=== PATIENT | male | born 1945 | race Caucasian/White ===

== ENCOUNTER 2019-08-31 17:44 | Inpatient (IN) | payer MEDICARE, OTHER ==
[~2019-08-31] VITALS: Ht 170.2 cm; Wt 108.9 kg
--- NOTE | 2019-08-31 18:56 | RAD ---
Exam: CT head INDICATION: Weakness for 3 days TECHNIQUE: Sequential axial images through the head were obtained without the administration of IV contrast. Comparisons: None FINDINGS: No focal parenchymal lesion or hemorrhage is identified. There is no midline shift or sulcal effacement. No acute vascular territory infarction is identified. Mazariegos-white distinction is preserved. The ventricular system is within normal limits without compression hydrocephalus. The basal cisterns are well maintained. The visualized portions of the paranasal sinuses and mastoid air cells are well-pneumatized. No acute fractures. There is a perforated septum. IMPRESSION: No acute intracranial abnormality. Exposure: One or more of the following in the visualized dose reduction techniques were utilized for this examination: 1. Automated exposure control 2. Adjustment of the MA and/or KV according to patient size Use of iterative of reconstructive technique Electronically signed by: Radha Herrera MD (08/31/2019 6:54 PM) [facility]
[2019-08-31 19:08] LABS: BASO # 0.1 x10^3/uL (0.0-0.2); BASO % 1 % (0-3); EOS # 0.3 x10^3/uL (0.0-0.7); EOS % 4 % (0-3); HEMATOCRIT 44.3 % (39.0-53.0); HEMOGLOBIN 15.7 g/dL (13.0-17.5); LYMPH # 1.7 x10^3/uL (1.0-4.8); LYMPH % 25 % (24-48); MEAN CORPUSCULAR HEMOGLOBIN 33 pg (25-35); MEAN CORPUSCULAR HGB CONC 35 g/dL (31-37); MEAN CORPUSCULAR VOLUME 93 fL (79-100); MONO % 15 % (0-9); NEUT # 3.8 x10^3/uL (1.8-7.7); NEUT % 56 % (31-73); PLATELET COUNT 202 x10^3/uL (140-400); RED BLOOD COUNT 4.77 x10^6/uL (4.30-5.70); RED CELL DISTRIBUTION WIDTH 13.9 % (11.5-14.5); WHITE BLOOD COUNT 6.8 x10^3/uL (4.0-11.0)
--- NOTE | 2019-08-31 19:10 | RAD ---
Exam: Chest one view INDICATION: Weakness TECHNIQUE: Frontal view of the chest Comparisons: None FINDINGS: The cardiomediastinal silhouette and pulmonary vessels are within normal limits. The lung and pleural spaces are clear. IMPRESSION: No acute cardiopulmonary process. Electronically signed by: Radha Herrera MD (08/31/2019 7:07 PM) [facility]
[2019-08-31 19:12] LABS: PROTHROMBIN TIME PATIENT 12.9 SEC (11.7-14.0)
[2019-08-31 19:19] LABS: D-DIMER 0.8 ug/mlFEU (0.00-0.50)
[2019-08-31 19:29] LABS: CALCIUM 9.3 mg/dL (8.5-10.1); CREATININE 1.2 mg/dL (0.7-1.3); POTASSIUM 4.2 mmol/L (3.5-5.1)
[2019-08-31 19:34] LABS: ALBUMIN 3.4 g/dL (3.4-5.0); ALBUMIN/GLOBULIN RATIO 0.9 (1.0-1.7); MAGNESIUM 1.9 mg/dL (1.8-2.4); TOTAL BILIRUBIN 0.8 mg/dL (0.2-1.0); TOTAL PROTEIN 7.3 g/dL (6.4-8.2)
[2019-08-31 20:08] LABS: BILIRUBIN,URINE NEGATIVE (NEG); CLARITY,URINE CLEAR; COLOR,URINE YELLOW; NITRITE,URINE NEGATIVE (NEG); PH,URINE 5.5; PROTEIN,URINE NEGATIVE (NEG-TRACE)
[2019-08-31 20:17] LABS: BACTERIA,URINE FEW /HPF (0-FEW); HYALINE CASTS, URINE FEW /HPF; SQUAMOUS EPITHELIAL CELL,UR FEW /LPF
[2019-08-31 20:18] LABS: AMPHETAMINE/METHAMPHETAMINE NEG (NEG); BARBITURATES NEG (NEG); BENZODIAZEPINES NEG (NEG); CANNABINOIDS NEG (NEG); COCAINE NEG (NEG); METHADONE NEG (NEG); OPIATES NEG (NEG); PHENCYCLIDINE NEG (NEG)
[2019-08-31] MEDS ORDERED: CONTRAST GIVEN. MC PRN (21:30)
--- NOTE | 2019-08-31 21:50 | PHYS DOC ---
Past Medical History Past Medical History: COPD, Diabetes-Type II, [place] Additional Past Surgical Histo: stents x6, cornea transplant, cataracts, 7th nerve decompression Alcohol Use: None Drug Use: None Adult General Chief Complaint Chief Complaint: WEAKNESS/GENERALIZED HPI HPI Patient is a 74 year old male with history of COPD, diabetes type 2, who presents to the ED today complaining of generalized weakness and increased shortness of breath especially on exertion for 4 days. Patient denies any fever coughing or congestion. He continues to state he is supposed to be on testosterone injections and would like to have his injections in the ED. He states his primary care doctor has been working to get him back on his injection after being off for the last 3 months because of insurance issues but this has not been successful because [facility] pharmacy feels he is not a candidate for testosterone injections. Review of Systems Review of Systems Constitutional: Denies fever or chills [] Eyes: Denies change in visual acuity, redness, or eye pain [] HENT: Denies nasal congestion or sore throat [] Respiratory: Reports increased shortness of breath. Denies cough Cardiovascular: No additional information not addressed in HPI [] GI: Denies abdominal pain, nausea, vomiting, bloody stools or diarrhea [] : Denies dysuria or hematuria [] Musculoskeletal: Denies back pain or joint pain [] Integument: Denies rash or skin lesions [] Neurologic: Reports generalized weakness. Denies headache, focal weakness or sensory changes [] All other systems were reviewed and found to be within normal limits, except as documented in this note. Current Medications Current Medications Current Medications Medications (Trade) Dose Ordered Sig/Ravinder Start Time Stop Time Status Last Admin Dose Admin Info (CONTRAST GIVEN -- Rx MONITORING) 1 each PRN DAILY PRN 08/31/19 21:30 09/02/19 21:29 Iohexol (Omnipaque 350 Mg/ml) 75 ml 1X ONCE 08/31/19 22:00 08/31/19 22:01 Allergies Allergies Allergies Coded Allergies Type Severity Reaction Last Updated Verified Penicillins Allergy Intermediate 08/31/19 Yes Sulfa (Sulfonamide Antibiotics) Allergy Intermediate 08/31/19 Yes prednisone Allergy Intermediate 08/31/19 Yes Physical Exam Physical Exam Constitutional: Well developed, well nourished, no acute distress, non-toxic appearance. [] HENT: Normocephalic, atraumatic, bilateral external ears normal, oropharynx moist, no oral exudates, nose normal. [] Eyes: PERRLA, EOMI, conjunctiva normal, no discharge. [] Neck: Normal range of motion, no tenderness, supple, no stridor. [] Cardiovascular:Heart rate regular rhythm, no murmur [] Lungs & Thorax: Bilateral breath sounds clear to auscultation [] Abdomen: Bowel sounds normal, soft, no tenderness, no masses, no pulsatile masses. [] Skin: Warm, dry, no erythema, no rash. [] Back: No tenderness, no CVA tenderness. [] Extremities: No tenderness, no cyanosis, no clubbing, ROM intact, no edema. [] Neurologic: Alert and oriented X 3, normal motor function, normal sensory function, no focal deficits noted. [] Psychologic: Affect normal, judgement normal, mood normal. [] Current Patient Data Vital Signs Vital Signs Date Time Temp Pulse Resp B/P (MAP) Pulse Ox O2 Delivery O2 Flow Rate FiO2 08/31/19 20:30 86 18 93 08/31/19 17:45 98.0 152/74 (100) Room Air 98.0 Lab Values Laboratory Tests Test 08/31/19 18:50 08/31/19 20:00 White Blood Count 6.8 x10^3/uL (4.0-11.0) Red Blood Count 4.77 x10^6/uL (4.30-5.70) Hemoglobin 15.7 g/dL (13.0-17.5) Hematocrit 44.3 % (39.0-53.0) Mean Corpuscular Volume 93 fL (79-100) Mean Corpuscular Hemoglobin 33 pg (25-35) Mean Corpuscular Hemoglobin Concent 35 g/dL (31-37) Red Cell Distribution Width 13.9 % (11.5-14.5) Platelet Count 202 x10^3/uL (140-400) Neutrophils (%) (Auto) 56 % (31-73) Lymphocytes (%) (Auto) 25 % (24-48) Monocytes (%) (Auto) 15 % (0-9) H Eosinophils (%) (Auto) 4 % (0-3) H Basophils (%) (Auto) 1 % (0-3) Neutrophils # (Auto) 3.8 x10^3/uL (1.8-7.7) Lymphocytes # (Auto) 1.7 x10^3/uL (1.0-4.8) Monocytes # (Auto) 1.0 x10^3/uL (0.0-1.1) Eosinophils # (Auto) 0.3 x10^3/uL (0.0-0.7) Basophils # (Auto) 0.1 x10^3/uL (0.0-0.2) Prothrombin Time 12.9 SEC (11.7-14.0) Prothrombin Time INR 1.0 (0.8-1.1) D-Dimer (Francy) 0.80 ug/mlFEU (0.00-0.50) H Sodium Level 135 mmol/L (136-145) L Potassium Level 4.2 mmol/L (3.5-5.1) Chloride Level 100 mmol/L (98-107) Carbon Dioxide Level 20 mmol/L (21-32) L Anion Gap 15 (6-14) H Blood Urea Nitrogen 15 mg/dL (8-26) Creatinine 1.2 mg/dL (0.7-1.3) Estimated GFR (Cockcroft-Gault) 59.0 BUN/Creatinine Ratio 13 (6-20) Glucose Level 205 mg/dL (70-99) H Calcium Level 9.3 mg/dL (8.5-10.1) Magnesium Level 1.9 mg/dL (1.8-2.4) Total Bilirubin 0.8 mg/dL (0.2-1.0) Aspartate Amino Transferase (AST) 88 U/L (15-37) H Alanine Aminotransferase (ALT) 87 U/L (16-63) H Alkaline Phosphatase 91 U/L (46-116) Creatine Kinase 198 U/L (39-308) Creatine Kinase MB (Mass) 1.1 ng/mL (0.0-3.6) Creatine Kinase MB Relative Index 0.6 % (0-4) Troponin I Quantitative < 0.017 ng/mL (0.000-0.055) XR-Zit-L-Type Natriuretic Peptide 54 pg/mL (0-449) Total Protein 7.3 g/dL (6.4-8.2) Albumin 3.4 g/dL (3.4-5.0) Albumin/Globulin Ratio 0.9 (1.0-1.7) L Thyroid Stimulating Hormone (TSH) 0.088 uIU/mL (0.358-3.74) L Urine Collection Type Unknown Urine Color Yellow Urine Clarity Clear Urine pH 5.5 Urine Specific [place] 1.025 Urine Protein Negative mg/dL (NEG-TRACE) Urine Glucose (UA) Negative mg/dL (NEG) Urine Ketones (Stick) Negative mg/dL (NEG) Urine Blood Negative (NEG) Urine Nitrite Negative (NEG) Urine Bilirubin Negative (NEG) Urine Urobilinogen Dipstick 1.0 mg/dL (0.2 mg/dL) Urine Leukocyte Esterase Negative (NEG) Urine RBC 1-2 /HPF (0-2) Urine WBC 1-4 /HPF (0-4) Urine Squamous Epithelial Cells Few /LPF Urine Bacteria Few /HPF (0-FEW) Urine Hyaline Casts Few /HPF Urine Mucus Marked /LPF Urine Opiates Screen Neg (NEG) Urine Methadone Screen Neg (NEG) Urine Barbiturates Neg (NEG) Urine Phencyclidine Screen Neg (NEG) Urine Amphetamine/Methamphetamine Neg (NEG) Urine Benzodiazepines Screen Neg (NEG) Urine Cocaine Screen Neg (NEG) Urine Cannabinoids Screen Neg (NEG) Urine Ethyl Alcohol Neg (NEG) Laboratory Tests 08/31/19 18:50 Laboratory Tests 08/31/19 18:50 EKG EKG [address] conklin sinus rhythm heart rate 89 no STEMI[] Radiology/Procedures Radiology/Procedures []PROCEDURE: CT HEAD WO CONTRAST Exam: CT head INDICATION: Weakness for 3 days TECHNIQUE: Sequential axial images through the head were obtained without the administration of IV contrast. Comparisons: None FINDINGS: No focal parenchymal lesion or hemorrhage is identified. There is no midline shift or sulcal effacement. No acute vascular territory infarction is identified. Mazariegos-white distinction is preserved. The ventricular system is within normal limits without compression hydrocephalus. The basal cisterns are well maintained. The visualized portions of the paranasal sinuses and mastoid air cells are well-pneumatized. No acute fractures. There is a perforated septum. IMPRESSION: No acute intracranial abnormality. Exposure: One or more of the following in the visualized dose reduction techniques were utilized for this examination: 1. Automated exposure control 2. Adjustment of the MA and/or KV according to patient size Use of iterative of reconstructive technique Electronically signed by: Radha Blevins MD (08/31/2019 6:54 PM) [facility] PROCEDURE: PORTABLE CHEST 1V Exam: Chest one view INDICATION: Weakness TECHNIQUE: Frontal view of the chest Comparisons: None FINDINGS: The cardiomediastinal silhouette and pulmonary vessels are within normal limits. The lung and pleural spaces are clear. IMPRESSION: No acute cardiopulmonary process. Electronically signed by: Radha Blevins MD (08/31/2019 7:07 PM) [facility] DICTATED and SIGNED BY: RADHA BLEVINS MD DATE: 08/31/191906 DICTATED and SIGNED BY: RADHA BLEVINS MD DATE: 08/31/191853 Course & Med Decision Making Course & Med Decision Making Pertinent Labs and Imaging studies reviewed. (See chart for details) This is a 74-year-old male patient presented to the ED today complaining of generalized weakness and shortness of breath for 4 days. Patient is also requesting his testosterone injections. See history of present illness. O2 sats 95% on room air on arrival to the ED. CBC with normal WBC, CMP with glucose of 205 and anion gap of 15. Patient was given insulin. CT of the head and chest x-ray negative for any acute findings. D-dimer 0.88-CTA chest pain that Spoke with Dr. Allen who accepted patient for admission Adrian Disclaimer Adrian Disclaimer This electronic medical record was generated, in whole or in part, using a voice recognition dictation system. Departure Departure Impression: Primary Impression: Generalized weakness Additional Impression: Shortness of breath Disposition: ADMITTED INPATIENT Condition: STABLE Referrals: KERRIE BURRELL MD (PCP) Problem Qualifiers ASPEN PINA AD OPERATIONS SPECIALIST Aug 31, 2019 21:50
[2019-08-31] MEDS ORDERED: IOHEXOL 350 MG/ML 100 ML VIAL. IV ONE (22:00)
--- NOTE | 2019-08-31 22:54 | NUR ---
The patient, ROXI WONG, 74 y/o, M admitted by ELIZABETH MAZARIEGOS MD, was given written information regarding hospital policies, unit procedures and contact persons. Valuables were checked and left with him.
[2019-08-31 23:00] VITALS: BP 168/66
[2019-09-01] MEDS ORDERED: DEXTROSE 50% 25 GM / 50ML DISP.SYRIN. IV PRN (01:00)
[2019-09-01 03:00] VITALS: BP 115/70
[2019-09-01] MEDS ORDERED: HYDR-2765 PO (03:59)
[2019-09-01] MEDS ORDERED: TOBR3.5O2 OS (03:59)
[2019-09-01] MEDS ORDERED: METO-239 PO (03:59)
[2019-09-01] MEDS ORDERED: OXYC1TAB22 PO (03:59)
[2019-09-01] MEDS ORDERED: GLIP5TAB10 PO (03:59)
[2019-09-01] MEDS ORDERED: BUDE10.2 IH (03:59)
[2019-09-01] MEDS ORDERED: SERT50TA PO (03:59)
[2019-09-01] MEDS ORDERED: LEVO125T PO (03:59)
[2019-09-01] MEDS ORDERED: CHOL10003 PO (03:59)
[2019-09-01] MEDS ORDERED: DIFL5DRO2 OP (03:59)
[2019-09-01] MEDS ORDERED: ASPI-612 PO (03:59)
[2019-09-01] MEDS ORDERED: AMLO5TAB10 PO (03:59)
[2019-09-01] MEDS ORDERED: ATOR20TA58 PO (03:59)
[2019-09-01] MEDS ORDERED: METF10007 PO (03:59)
[2019-09-01] MEDS ORDERED: HYDR10TA PO ×2 (03:59→15:25)
[2019-09-01] MEDS ORDERED: PANT20TA2 PO (03:59)
[2019-09-01] MEDS ORDERED: GABA-585 PO (03:59)
[2019-09-01] MEDS ORDERED: RAMI10CA53 PO (03:59)
[2019-09-01] MEDS ORDERED: CALC-157 PO (03:59)
[2019-09-01 07:00] VITALS: BP 122/56
--- NOTE | 2019-09-01 07:02 | EKG ---
[facility] [address] [place] [address] Test Date: 2019-08-31 Test Time: 19:44:05 Pat Name: ROXI WONG Department: Room: 569 1 Gender: M Tavern Keeper: : 1945 Requested By: ASPEN PINA Order Number: [id number] Reading MD: Villa Duron MD Measurements Intervals [place] Rate: 89 P: 33 NH: 194 QRS: -30 QRSD: 132 T: 138 QT: 428 QTc: 522 Interpretive Statements SINUS RHYTHM PROBABLE V-PACING VERSUS LEFT BUNDLE BRANCH BLOCK WITH LATERAL INFARCT Electronically Signed On 09-08-2019 11:44:28 CDT by Villa Duron MD
[2019-09-01] MEDS: INSULIN LISPRO 300 UNITS/3 ML VIAL. SQ SCH ×3 (08:00→16:58)
--- NOTE | 2019-09-01 09:35 | PDOC1 ---
History and Physical Date of Admission Date of Admission DATE: 09/01/19 TIME: 09:34 Identification/Chief Complaint Chief Complaint seen in er 10 pm 74 year old male with history of COPD, diabetes type 2, who presents to the ED complaining of generalized weakness and increased shortness of breath especially on exertion for 4 days. Patient denies any fever coughing or congestion. FEELS HE IS WEAK BECAUSE HE HAS NOT HAD A TESTOSTERONE SHOT IN 4 MONTHS, INSURANCE NOT COVERING THIS RX Past Medical History Past Medical History Past Medical History Past Medical History: COPD, Diabetes-Type II, [place] Additional Past Surgical Histo: stents x6, cornea transplant, cataracts, 7th nerve decompression Alcohol Use: None Drug Use: None fhx obesity Family History Family History: Chronic Bronchitis Social History Smoke: Quit ALCOHOL: none Drugs: None Current Problem List Problem List Problems Medical Problems: (1) Shortness of breath Status: Acute Current Medications Current Medications Current Medications Iohexol (Omnipaque 350 Mg/ml) 75 ml 1X ONCE IV ; Start 08/31/19 at 22:00; Stop 08/31/19 at 22:01; Status DC Info (CONTRAST GIVEN -- Rx MONITORING) 1 each PRN DAILY PRN MC SEE COMMENTS; Start 08/31/19 at 21:30; Stop 09/02/19 at 21:29 Insulin Human Lispro (HumaLOG) 0-5 UNITS TIDWMEALS SQ ; Start 09/01/19 at 08:00 Dextrose (Dextrose 50%-Water Syringe) 12.5 gm PRN Q15MIN PRN IV SEE COMMENTS; Start 09/01/19 at 01:00 Active Scripts Active Reported Calcium 500 + Vit D 200 Tablet (Calcium Carbonate/Vitamin D3) 1 Each Tablet 1 Ea ch PO DAILY Vitamin D3 (Cholecalciferol (Vitamin D3)) 1,000 Unit Tablet 1,000 Unit PO DAILY Aspirin Ec (Aspirin) 81 Mg Tablet. 81 Mg PO DAILY Glipizide 5 Mg Tablet 5 Mg PO DAILY Atorvastatin Calcium 20 Mg Tablet 20 Mg PO HS Durezol (Difluprednate) 5 Ml Drops 5 Ml OP BID Tobradex Eye Ointment (Tobramycin/Dexamethasone) 3.5 Gm Oint...g. 1 Gary OS BID Protonix (Pantoprazole Sodium) 20 Mg Tablet.dr 40 Mg PO DAILY Symbicort 160-4.5 Mcg Inhaler (Budesonide/Formoterol Fumarate) 10.2 Gm Hfa.aer.ad 2 Puff IH BID Percocet 10-325 Mg Tablet (Oxycodone/Acetaminophen) 1 Each Tablet 1 Tab PO PRN Q6HRS PRN Zoloft (Sertraline Hcl) 50 Mg Tablet 50 Mg PO DAILY Metformin Hcl 1,000 Mg Tablet 1,000 Mg PO BIDWMEALS Neurontin (Gabapentin) 100 Mg Capsule 100 Mg PO TID Synthroid (Levothyroxine Sodium) 125 Mcg Tablet 125 Mcg PO DAILYAC Metoprolol Succinate ( Xl ) (Metoprolol Succinate) 25 Mg Tab.er.24h 25 Mg PO DAILY Hydrocodone-Apap 7.5-325 (Hydrocodone Bit/Acetaminophen) 1 Tab Tablet 1 Tab PO PRN Q6HRS PRN Cortef (Hydrocortisone) 10 Mg Tablet 10 Mg PO DAILY Amlodipine Besylate 5 Mg Tablet 5 Mg PO DAILY Ramipril 10 Mg Capsule 1 Cap PO DAILY Allergies Allergies: Coded Allergies: Penicillins (Verified Allergy, Intermediate, 08/31/19) Sulfa (Sulfonamide Antibiotics) (Verified Allergy, Intermediate, 08/31/19) prednisone (Verified Allergy, Intermediate, 08/31/19) ROS Review of System Review of Systems Review of Systems Constitutional: Denies fever or chills [] c/o fatigue Eyes: Denies change in visual acuity, redness, or eye pain [] HENT: Denies nasal congestion or sore throat [] Respiratory: Reports increased shortness of breath. Denies cough Cardiovascular: No additional information not addressed in HPI [] left chest wall pain GI: Denies abdominal pain, nausea, vomiting, bloody stools or diarrhea [] : Denies dysuria or hematuria [] Musculoskeletal: Denies back pain or joint pain [] Integument: Denies rash or skin lesions [] Neurologic: Reports generalized weakness. Denies headache, focal weakness or sensory changes [] 14 pt systems were reviewed and found to be within normal limits, except as documented Physical Exam Physical Exam Physical Exam Physical Exam Constitutional: Well developed, well nourished, no acute distress, non-toxic appearance. [] HENT: Normocephalic, atraumatic, bilateral external ears normal, oropharynx moist, no oral exudates, nose normal. [] Eyes: PERRLA, EOMI, conjunctiva normal, no discharge. [] Neck: Normal range of motion, no tenderness, supple, no stridor. [] Cardiovascular:Heart rate regular rhythm, no murmur [] Lungs & Thorax: Bilateral breath sounds clear to auscultation [] Abdomen: Bowel sounds normal, soft, no tenderness, no masses, no pulsatile masses. [] Skin: Warm, dry, no erythema, no rash. [] Back: No tenderness, no CVA tenderness. [] Extremities: No tenderness, no cyanosis, no clubbing, ROM intact, no edema. [] Neurologic: Alert and oriented X 3, normal motor function, normal sensory function, no focal deficits noted. [] Psychologic: Affect normal, judgment normal, mood normal. [] General: Alert, Oriented X3, Cooperative, No acute distress HEENT: EOMI, Mucous membr. moist/pink Lungs: Clear to auscultation, Normal air movement Heart: RRR Abdomen: Normal bowel sounds, Soft, Other (obese) Rectal Exam: not examined Neuro: Normal speech, Sensation intact, Cranial nerves 3-12 NL Psych/Mental Status: Mental status NL, Mood NL Vitals Vitals Vital Signs Date Time Temp Pulse Resp B/P (MAP) Pulse Ox O2 Delivery O2 Flow Rate FiO2 09/01/19 07:00 98.5 81 20 122/56 (78) 93 Room Air 98.5 Labs Labs Laboratory Tests Test 08/31/19 18:50 08/31/19 20:00 09/01/19 07:32 White Blood Count 6.8 x10^3/uL (4.0-11.0) Red Blood Count 4.77 x10^6/uL (4.30-5.70) Hemoglobin 15.7 g/dL (13.0-17.5) Hematocrit 44.3 % (39.0-53.0) Mean Corpuscular Volume 93 fL (79-100) Mean Corpuscular Hemoglobin 33 pg (25-35) Mean Corpuscular Hemoglobin Concent 35 g/dL (31-37) Red Cell Distribution Width 13.9 % (11.5-14.5) Platelet Count 202 x10^3/uL (140-400) Neutrophils (%) (Auto) 56 % (31-73) Lymphocytes (%) (Auto) 25 % (24-48) Monocytes (%) (Auto) 15 % (0-9) Eosinophils (%) (Auto) 4 % (0-3) Basophils (%) (Auto) 1 % (0-3) Neutrophils # (Auto) 3.8 x10^3/uL (1.8-7.7) Lymphocytes # (Auto) 1.7 x10^3/uL (1.0-4.8) Monocytes # (Auto) 1.0 x10^3/uL (0.0-1.1) Eosinophils # (Auto) 0.3 x10^3/uL (0.0-0.7) Basophils # (Auto) 0.1 x10^3/uL (0.0-0.2) Prothrombin Time 12.9 SEC (11.7-14.0) Prothromb Time International Ratio 1.0 (0.8-1.1) D-Dimer (Francy) 0.80 ug/mlFEU (0.00-0.50) Sodium Level 135 mmol/L (136-145) Potassium Level 4.2 mmol/L (3.5-5.1) Chloride Level 100 mmol/L (98-107) Carbon Dioxide Level 20 mmol/L (21-32) Anion Gap 15 (6-14) Blood Urea Nitrogen 15 mg/dL (8-26) Creatinine 1.2 mg/dL (0.7-1.3) Estimated GFR (Cockcroft-Gault) 59.0 BUN/Creatinine Ratio 13 (6-20) Glucose Level 205 mg/dL (70-99) Calcium Level 9.3 mg/dL (8.5-10.1) Magnesium Level 1.9 mg/dL (1.8-2.4) Total Bilirubin 0.8 mg/dL (0.2-1.0) Aspartate Amino Transf (AST/SGOT) 88 U/L (15-37) Alanine Aminotransferase (ALT/SGPT) 87 U/L (16-63) Alkaline Phosphatase 91 U/L (46-116) Creatine Kinase 198 U/L (39-308) Creatine Kinase MB (Mass) 1.1 ng/mL (0.0-3.6) Creatine Kinase MB Relative Index 0.6 % (0-4) Troponin I Quantitative < 0.017 ng/mL (0.000-0.055) XO-Dcm-P-Type Natriuretic Peptide 54 pg/mL (0-449) Total Protein 7.3 g/dL (6.4-8.2) Albumin 3.4 g/dL (3.4-5.0) Albumin/Globulin Ratio 0.9 (1.0-1.7) Thyroid Stimulating Hormone (TSH) 0.088 uIU/mL (0.358-3.74) Urine Collection Type Unknown Urine Color Yellow Urine Clarity Clear Urine pH 5.5 Urine Specific [place] 1.025 Urine Protein Negative mg/dL (NEG-TRACE) Urine Glucose (UA) Negative mg/dL (NEG) Urine Ketones (Stick) Negative mg/dL (NEG) Urine Blood Negative (NEG) Urine Nitrite Negative (NEG) Urine Bilirubin Negative (NEG) Urine Urobilinogen Dipstick 1.0 mg/dL (0.2 mg/dL) Urine Leukocyte Esterase Negative (NEG) Urine RBC 1-2 /HPF (0-2) Urine WBC 1-4 /HPF (0-4) Urine Squamous Epithelial Cells Few /LPF Urine Bacteria Few /HPF (0-FEW) Urine Hyaline Casts Few /HPF Urine Mucus Marked /LPF Urine Opiates Screen Neg (NEG) Urine Methadone Screen Neg (NEG) Urine Barbiturates Neg (NEG) Urine Phencyclidine Screen Neg (NEG) Urine Amphetamine/Methamphetamine Neg (NEG) Urine Benzodiazepines Screen Neg (NEG) Urine Cocaine Screen Neg (NEG) Urine Cannabinoids Screen Neg (NEG) Urine Ethyl Alcohol Neg (NEG) Glucose (Fingerstick) 122 mg/dL (70-99) Laboratory Tests Test 08/31/19 18:50 08/31/19 20:00 09/01/19 07:32 White Blood Count 6.8 x10^3/uL (4.0-11.0) Red Blood Count 4.77 x10^6/uL (4.30-5.70) Hemoglobin 15.7 g/dL (13.0-17.5) Hematocrit 44.3 % (39.0-53.0) Mean Corpuscular Volume 93 fL (79-100) Mean Corpuscular Hemoglobin 33 pg (25-35) Mean Corpuscular Hemoglobin Concent 35 g/dL (31-37) Red Cell Distribution Width 13.9 % (11.5-14.5) Platelet Count 202 x10^3/uL (140-400) Neutrophils (%) (Auto) 56 % (31-73) Lymphocytes (%) (Auto) 25 % (24-48) Monocytes (%) (Auto) 15 % (0-9) Eosinophils (%) (Auto) 4 % (0-3) Basophils (%) (Auto) 1 % (0-3) Neutrophils # (Auto) 3.8 x10^3/uL (1.8-7.7) Lymphocytes # (Auto) 1.7 x10^3/uL (1.0-4.8) Monocytes # (Auto) 1.0 x10^3/uL (0.0-1.1) Eosinophils # (Auto) 0.3 x10^3/uL (0.0-0.7) Basophils # (Auto) 0.1 x10^3/uL (0.0-0.2) Prothrombin Time 12.9 SEC (11.7-14.0) Prothromb Time International Ratio 1.0 (0.8-1.1) D-Dimer (Francy) 0.80 ug/mlFEU (0.00-0.50) Sodium Level 135 mmol/L (136-145) Potassium Level 4.2 mmol/L (3.5-5.1) Chloride Level 100 mmol/L (98-107) Carbon Dioxide Level 20 mmol/L (21-32) Anion Gap 15 (6-14) Blood Urea Nitrogen 15 mg/dL (8-26) Creatinine 1.2 mg/dL (0.7-1.3) Estimated GFR (Cockcroft-Gault) 59.0 BUN/Creatinine Ratio 13 (6-20) Glucose Level 205 mg/dL (70-99) Calcium Level 9.3 mg/dL (8.5-10.1) Magnesium Level 1.9 mg/dL (1.8-2.4) Total Bilirubin 0.8 mg/dL (0.2-1.0) Aspartate Amino Transf (AST/SGOT) 88 U/L (15-37) Alanine Aminotransferase (ALT/SGPT) 87 U/L (16-63) Alkaline Phosphatase 91 U/L (46-116) Creatine Kinase 198 U/L (39-308) Creatine Kinase MB (Mass) 1.1 ng/mL (0.0-3.6) Creatine Kinase MB Relative Index 0.6 % (0-4) Troponin I Quantitative < 0.017 ng/mL (0.000-0.055) JM-Pkx-X-Type Natriuretic Peptide 54 pg/mL (0-449) Total Protein 7.3 g/dL (6.4-8.2) Albumin 3.4 g/dL (3.4-5.0) Albumin/Globulin Ratio 0.9 (1.0-1.7) Thyroid Stimulating Hormone (TSH) 0.088 uIU/mL (0.358-3.74) Urine Collection Type Unknown Urine Color Yellow Urine Clarity Clear Urine pH 5.5 Urine Specific [place] 1.025 Urine Protein Negative mg/dL (NEG-TRACE) Urine Glucose (UA) Negative mg/dL (NEG) Urine Ketones (Stick) Negative mg/dL (NEG) Urine Blood Negative (NEG) Urine Nitrite Negative (NEG) Urine Bilirubin Negative (NEG) Urine Urobilinogen Dipstick 1.0 mg/dL (0.2 mg/dL) Urine Leukocyte Esterase Negative (NEG) Urine RBC 1-2 /HPF (0-2) Urine WBC 1-4 /HPF (0-4) Urine Squamous Epithelial Cells Few /LPF Urine Bacteria Few /HPF (0-FEW) Urine Hyaline Casts Few /HPF Urine Mucus Marked /LPF Urine Opiates Screen Neg (NEG) Urine Methadone Screen Neg (NEG) Urine Barbiturates Neg (NEG) Urine Phencyclidine Screen Neg (NEG) Urine Amphetamine/Methamphetamine Neg (NEG) Urine Benzodiazepines Screen Neg (NEG) Urine Cocaine Screen Neg (NEG) Urine Cannabinoids Screen Neg (NEG) Urine Ethyl Alcohol Neg (NEG) Glucose (Fingerstick) 122 mg/dL (70-99) Images Images Exam: Chest one view INDICATION: Weakness TECHNIQUE: Frontal view of the chest Comparisons: None FINDINGS: The cardiomediastinal silhouette and pulmonary vessels are within normal limits. The lung and pleural spaces are clear. IMPRESSION: No acute cardiopulmonary process. Electronically signed by: Radha Blevins MD (08/31/2019 7:07 PM) [facility] DICTATED and SIGNED BY: RADHA BLEVINS MD DATE: 08/31/19 9433 Examination: LUNG VENT/PERFUSION SCAN(VQ) History: Dyspnea, elevated d-dimer Comparison/Correlation: 08/31/2019 Portable Chest X-ray Exam Findings: 19 mCi xenon-133 gas was administered for ventilation imaging. Imaging was performed in anterior and posterior projections. Delayed and washout of radiotracer compatible which may represent COPD is noted. No ventilation defect. 5.5 mCi technetium 99m MAA was intravenously administered for perfusion imaging. Imaging was performed in 8 projections. Perfusion defect involving the right posterior basilar segment is present. Small matched defects involving lung bases also suggested. Impression: Intermediate probability for pulmonary embolism. COPD. Electronically signed by: Reuben Knight MD (09/01/2019 10:34 AM) [facility] VTE Prophylaxis Ordered VTE Prophylaxis Devices: Yes VTE Pharmacological Prophylaxi: Yes Assessment/Plan Assessment/Plan Impression: COPD HX Generalized weakness Shortness of breath WITH HIGH D-DIMER Intermediate probability for pulmonary embolism. ON V/Q SCAN POA CRI MORBID OBESITY HX REMOTE TOBACCO ABUSE ADMITTED 02 support PRN ABG NOW, IF ABD CONSIDER CTA R/O PE ECHO CARDIOLOGY CONSULT PULM CONSULT RASTA QID TSH IS LOW, CHK FREE T4 SQ LOVENOX ONE MG/KG BID UNTIL PULM SEES 60 MIN PT EXAM, CHART REVIEW, > 50% OF TIME SPENT WITH EXAM, CHART REVIEW, PT CARE COORDINATION ELIZABETH MAZARIEGOS MD Sep 01, 2019 09:35
--- NOTE | 2019-09-01 10:37 | RAD ---
Examination: LUNG VENT/PERFUSION SCAN(VQ) History: Dyspnea, elevated d-dimer Comparison/Correlation: 08/31/2019 Portable Chest X-ray Exam Findings: 19 mCi xenon-133 gas was administered for ventilation imaging. Imaging was performed in anterior and posterior projections. Delayed and washout of radiotracer compatible which may represent COPD is noted. No ventilation defect. 5.5 mCi technetium 99m MAA was intravenously administered for perfusion imaging. Imaging was performed in 8 projections. Perfusion defect involving the right posterior basilar segment is present. Small matched defects involving lung bases also suggested. Impression: Intermediate probability for pulmonary embolism. COPD. Electronically signed by: Reuben Knight MD (09/01/2019 10:34 AM) [facility]
[2019-09-01 11:00] VITALS: BP 125/50
[2019-09-01] MEDS ORDERED: HYDROcodone/APAP 7.5/325MG 1 TAB TABLET PO PRN (13:15)
[2019-09-01] MEDS ORDERED: oxyCODONE/APAP 10/325 1 TAB TABLET PO PRN (13:15)
[2019-09-01] MEDS ORDERED: DOCUSATE SODIUM 100 MG CAPSULE. PO PRN (13:30)
[2019-09-01] MEDS ORDERED: guaiFENesin ORAL 200 MG/10 ML LIQUID. PO PRN (13:30)
[2019-09-01] MEDS ORDERED: 0.9 % SODIUM CHLORIDE 10 ML DISP.SYRIN. IV PRN (13:30)
[2019-09-01] MEDS ORDERED: cloNIDine HCL 0.1 MG TABLET PO PRN (13:30)
[2019-09-01] MEDS ORDERED: ACETAMINOPHEN 325 MG TABLET. PO PRN (13:30)
[2019-09-01] MEDS ORDERED: ONDANSETRON PF 4 MG/2 ML VIAL. IV PRN (13:30)
[2019-09-01] MEDS ORDERED: HYDROCORTISONE 10 MG TABLET PO SCH ×2 (14:00→21:00)
[2019-09-01] MEDS: METOPROLOL SUCC 24HR ER 25 MG TAB.ER.24H. PO SCH (14:26)
[2019-09-01] MEDS: LISINOPRIL 20 MG TABLET PO SCH (14:26)
[2019-09-01] MEDS: SERTRALINE 50 MG TABLET. PO SCH (14:26)
[2019-09-01] MEDS: CALCIUM CARB/VIT D3 500/200 TABLET. PO SCH (14:26)
[2019-09-01] MEDS: GABAPENTIN 100 MG CAPSULE. PO SCH ×2 (14:27→21:03)
[2019-09-01] MEDS: amLODIPine BESYLATE 5 MG TABLET PO SCH (14:27)
[2019-09-01] MEDS: ASPIRIN ENTERIC COATED 81 MG TABLET.DR. PO SCH (14:27)
[2019-09-01] MEDS: CHOLECALCIFEROL (VITAMIN D3) 1,000 UNIT TABLET PO SCH (14:27)
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
[2019-09-01] MEDS ORDERED: HYDROCORTISONE 10 MG TABLET PO ONE (14:45)
[2019-09-01 14:56] VITALS: BP 122/95
[2019-09-01] MEDS ORDERED: HYDR20TA PO (15:25)
--- NOTE | 2019-09-01 15:26 | RAD ---
Examination: VENOUS LOWER EXT BILATERAL History: Dyspnea Comparison/Correlation: None FINDINGS: Bilateral lower extremity duplex venous ultrasound exam was performed. Grayscale, color Doppler, and spectral Doppler imaging was performed. Compression and augmentation was performed. The right common femoral vein, superficial femoral vein, popliteal vein, and greater saphenous vein are normal with no evidence of deep venous thrombus. Normal compressibility and augmentation is evident. The left common femoral vein, superficial femoral vein, popliteal vein, and greater saphenous vein are normal with no evidence of deep venous thrombus. Normal compressibility and augmentation is evident. The visualized calf veins bilaterally are unremarkable. IMPRESSION: Normal bilateral lower extremity duplex ultrasound exam. No evidence of deep venous thrombus involving the lower extremities. Electronically signed by: Reuben Knight MD (09/01/2019 3:22 PM) [facility]
[2019-09-01] MEDS ORDERED: ALBUTEROL SULFATE 2.5 MG/3 ML NEBU. NEB SCH (16:00)
[2019-09-01] MEDS: IPRATRPIUM/ALBUTEROL 0.5/2.5MG 3 ML NEBU. NEB SCH ×4 (16:17→23:50)
[2019-09-01 16:42] LABS: BASE EXCESS COOX 0 mmol/L (-3-3); HCO3 COOX 24 mmol/L (21-28); METHEMOGLOBIN 0.3 % (0.0-1.9); OXYHEMOGLOBIN 94.4 %; PCO2 COOX 38 mmHg (35-46); PO2 COOX 77 mmHg (65-108); SAT O2 COOX 95 % (92-99)
[2019-09-01 19:02] VITALS: BP 112/44
[2019-09-01] MEDS: BUDESONIDE 0.5 MG/2 ML NEBU. NEB SCH (19:52)
[2019-09-01] MEDS ORDERED: NON FORMULARY ITEM (Difluprednate (Durezol) 5 ML) OP SCH (21:00)
[2019-09-01] MEDS ORDERED: DEXAMETHASONE OS SCH (21:00)
[2019-09-01] MEDS ORDERED: TOBRAMYCIN OS SCH (21:00)
[2019-09-01] MEDS ORDERED: NON FORMULARY ITEM (Budesonide/Formoterol Fumarate (Symbicort 160-4.5 Mcg Inhaler) 2 PUFF) IH SCH (21:00)
[2019-09-01] MEDS: ATORVASTATIN CALCIUM 20 MG TABLET PO SCH (21:01)
[2019-09-01] MEDS: HYDROCORTISONE 10 MG TABLET PO SCH (21:01)
[2019-09-01 23:16] VITALS: BP 110/46
[2019-09-02] VITALS (7 sets, daily range): BP systolic 110–142; BP diastolic 40–74
[2019-09-02 04:01] LABS: BASO % 1 % (0-3); EOS # 0.1 x10^3/uL (0.0-0.7); EOS % 3 % (0-3); HEMATOCRIT 42.3 % (39.0-53.0); HEMOGLOBIN 14.6 g/dL (13.0-17.5); LYMPH # 1.4 x10^3/uL (1.0-4.8); LYMPH % 25 % (24-48); MEAN CORPUSCULAR HEMOGLOBIN 33 pg (25-35); MEAN CORPUSCULAR HGB CONC 35 g/dL (31-37); MEAN CORPUSCULAR VOLUME 95 fL (79-100); MONO # 0.7 x10^3/uL (0.0-1.1); MONO % 13 % (0-9); NEUT # 3.3 x10^3/uL (1.8-7.7); NEUT % 59 % (31-73); PLATELET COUNT 176 x10^3/uL (140-400); RED BLOOD COUNT 4.47 x10^6/uL (4.30-5.70); RED CELL DISTRIBUTION WIDTH 14.2 % (11.5-14.5); WHITE BLOOD COUNT 5.5 x10^3/uL (4.0-11.0)
[2019-09-02 04:24] LABS: ALBUMIN 3.3 g/dL (3.4-5.0); ALBUMIN/GLOBULIN RATIO 0.9 (1.0-1.7); CALCIUM 9.4 mg/dL (8.5-10.1); CREATININE 1.2 mg/dL (0.7-1.3); POTASSIUM 4.2 mmol/L (3.5-5.1); TOTAL BILIRUBIN 0.5 mg/dL (0.2-1.0); TOTAL PROTEIN 6.9 g/dL (6.4-8.2)
[2019-09-02 04:29] LABS: CHOLESTEROL/HDL RATIO 9.5
[2019-09-02] MEDS: LEVOTHYROXINE 125 MCG TABLET PO SCH (07:30)
[2019-09-02] MEDS: PANTOPRAZOLE 40 MG TABLET.DR. PO SCH (07:30)
[2019-09-02] MEDS: glipiZIDE 5 MG TABLET PO SCH (08:00)
[2019-09-02] MEDS: HYDROCORTISONE 10 MG TABLET PO SCH ×2 (08:00→20:34)
[2019-09-02] MEDS: IPRATRPIUM/ALBUTEROL 0.5/2.5MG 3 ML NEBU. NEB SCH ×4 (08:09→20:23)
[2019-09-02] MEDS: BUDESONIDE 0.5 MG/2 ML NEBU. NEB SCH ×2 (08:09→20:23)
[2019-09-02] MEDS: CHOLECALCIFEROL (VITAMIN D3) 1,000 UNIT TABLET PO SCH (09:00)
[2019-09-02] MEDS: CALCIUM CARB/VIT D3 500/200 TABLET. PO SCH (09:00)
[2019-09-02] MEDS: amLODIPine BESYLATE 5 MG TABLET PO SCH (09:00)
[2019-09-02] MEDS: METOPROLOL SUCC 24HR ER 25 MG TAB.ER.24H. PO SCH (09:00)
[2019-09-02] MEDS: LISINOPRIL 20 MG TABLET PO SCH (09:00)
[2019-09-02] MEDS: SERTRALINE 50 MG TABLET. PO SCH (09:00)
[2019-09-02] MEDS: ASPIRIN ENTERIC COATED 81 MG TABLET.DR. PO SCH (09:00)
[2019-09-02] MEDS: GABAPENTIN 100 MG CAPSULE. PO SCH ×3 (09:00→20:34)
[2019-09-02] MEDS: INSULIN LISPRO 300 UNITS/3 ML VIAL. SQ SCH ×3 (09:18→17:40)
--- NOTE | 2019-09-02 09:59 | CARD ---
MR#: [id number] Date of Study: 09/02/2019 Ordering Physician: ELIZABETH MAZARIEGOS, Referring Physician: ELIZABETH MAZARIEGOS Tech: Bethanie Molina RDCS APPROVED REPORT EXAM: Two-dimensional and M-mode echocardiogram with Doppler and color Doppler. Other Information Quality : Fair INDICATION Dyspnea 2D DIMENSIONS RVDd3.1 (2.9-3.5cm)Left Atrium(2D)4.0 (1.6-4.0cm) IVSd1.4 (0.7-1.1cm)Aortic Root(2D)3.0 (2.0-3.7cm) LVDd4.7 (3.9-5.9cm)LVOT Diameter2.2 (1.8-2.4cm) PWd1.0 (0.7-1.1cm)LVDs3.2 (2.5-4.0cm) FS (%) 31.7 %SV60.7 ml LVEF(%)59.7 (>50%) Aortic Valve AoV Peak José.159.6cm/sAoV VTI22.6cm AO Peak GR.10.2mmHgLVOT VTI 22.31cm AO Mean GR.5mmHgAVA (VTI)3.40cm2 AI P 1/2 [id number] Mitral Valve MV E Hdaxfujg79.9cm/sMV DECEL [id number] TDI Lateral E' P. V6.24cm/sMedial E' P. V6.89cm/s E/Lateral E'8.3E/Medial E'7.5 Tricuspid Valve TR P. [id number]/sRAP [id number] TR Peak Gr.[id number] LEFT VENTRICLE The left ventricle is normal size. There is mild concentric left ventricular hypertrophy. The left ve ntricular systolic function is normal. The Ejection Fraction is 60%. There is normal LV segmental wal l motion. RIGHT VENTRICLE The right ventricle is normal size. The right ventricular systolic function is normal. ATRIA The left atrium is mildly dilated. The right atrium size is normal. The interatrial septum is intact with no evidence for an atrial septal defect or patent foramen ovale as noted on 2-D or Doppler imagi ng. AORTIC VALVE The aortic valve is normal in structure and function. Doppler and Color Flow revealed mild aortic reg urgitation. There is no significant aortic valvular stenosis. MITRAL VALVE The mitral valve is calcified but opens well. Mitral annular calcification is mild. There is no evide nce of mitral valve prolapse. There is no mitral valve stenosis. Doppler and Color-flow revealed trac e mitral regurgitation. TRICUSPID VALVE The tricuspid valve is normal in structure and function. Doppler and Color Flow revealed trace tricus pid regurgitation. There is mild pulmonary hypertension. The PA pressure was estimated at 34 mmHg. Th ere is no tricuspid valve stenosis. PULMONIC VALVE The pulmonic valve is not well visualized. Doppler and Color Flow revealed no pulmonic valvular regur gitation. There is no pulmonic valvular stenosis. GREAT VESSELS The aortic root is normal in size. The ascending aorta is normal in size. The IVC was not visualized. PERICARDIAL EFFUSION There is no evidence of significant pericardial effusion. Critical Notification Critical Value: No <Conclusion> The left ventricular systolic function is normal. The Ejection Fraction is 60%. There is normal LV segmental wall motion. Mild aortic regurgitation. Trace mitral regurgitation. Trace tricuspid regurgitation. The PA pressure was estimated at 34 mmHg. There is no evidence of significant pericardial effusion. Signed by : Gregory Saleh, Electronically Approved : 09/02/2019 09:58:23
--- NOTE | 2019-09-02 10:26 | PDOC ---
PROGRESS NOTES History of Present Illness History of Present Illness VTE Prophylaxis Ordered VTE Prophylaxis Devices: Yes VTE Pharmacological Prophylaxi: Yes Assessment/Plan Assessment/Plan Impression: COPD HX dyspnea 09/01 on echo left ventricular systolic function is normal. Ejection Fraction is 60%.normal LV segmental wall motion. Mild aortic regurgitation. Trace mitral regurgitation. Trace tricuspid regurgitation. PA pressure was estimated at 34 mmHg. Generalized weakness Shortness of breath WITH HIGH D-DIMER Intermediate probability for pulmonary embolism. ON V/Q SCAN POA CRI MORBID OBESITY HX REMOTE TOBACCO ABUSE HYPERLIPIDEMIA ADMITTED 02 support PRN CONSIDER CTA R/O PE ECHO CARDIOLOGY CONSULT PULM CONSULT RASTA QID TSH IS LOW, CHK FREE T4 SQ LOVENOX ONE MG/KG BID UNTIL PULM SEES CTA CHEST 09/02 36 MIN PT EXAM, CHART REVIEW, > 50% OF TIME SPENT WITH EXAM, CHART REVIEW, PT CARE COORDINATION Vitals Vitals Vital Signs Date Time Temp Pulse Resp B/P (MAP) Pulse Ox O2 Delivery O2 Flow Rate FiO2 09/02/19 09:00 76 142/74 09/02/19 08:10 95 Room Air 09/02/19 07:47 97.8 18 2.0 97.8 Physical Exam General: Alert, Oriented X3, Cooperative, No acute distress Heart: Regular rate, Normal S1, Normal S2 Lungs: Clear Abdomen: Normal bowel sounds, Soft, Other (obese ) Extremities: No cyanosis, No edema, Normal pulses Skin: No significant lesion Labs LABS INDICATION Dyspnea 2D DIMENSIONS RVDd 3.1 (2.9-3.5cm) Left Atrium(2D) 4.0 (1.6-4.0cm) IVSd 1.4 (0.7-1.1cm) Aortic Root(2D) 3.0 (2.0-3.7cm) LVDd 4.7 (3.9-5.9cm) LVOT Diameter 2.2 (1.8-2.4cm) PWd 1.0 (0.7-1.1cm) LVDs 3.2 (2.5-4.0cm) FS (%) 31.7 % SV 60.7 ml LVEF(%) 59.7 (>50%) Aortic Valve AoV Peak José. 159.6cm/s AoV VTI 22.6cm AO Peak GR. 10.2mmHg LVOT VTI 22.31cm AO Mean GR. 5mmHg LUIS F (VTI) 3.40cm2 AI P 1/2 Time 650ms Mitral Valve MV E Velocity 51.9cm/s MV DECEL TIME 131ms TDI Lateral E' P. V 6.24cm/s Medial E' P. V 6.89cm/s E/Lateral E' 8.3 E/Medial E' 7.5 Tricuspid Valve TR P. Velocity 280cm/s RAP ESTIMATE 3mmHg TR Peak Gr. 31mmHg RVSP 34mmHg LEFT VENTRICLE The left ventricle is normal size. There is mild concentric left ventricular hypertrophy. The left ventricular systolic function is normal. The Ejection Fraction is 60%. There is normal LV segmental wall motion. RIGHT VENTRICLE The right ventricle is normal size. The right ventricular systolic function is normal. ATRIA The left atrium is mildly dilated. The right atrium size is normal. The interatrial septum is intact with no evidence for an atrial septal defect or patent foramen ovale as noted on 2-D or Doppler imaging. AORTIC VALVE The aortic valve is normal in structure and function. Doppler and Color Flow revealed mild aortic regurgitation. There is no significant aortic valvular stenosis. MITRAL VALVE The mitral valve is calcified but opens well. Mitral annular calcification is mi ld. There is no evidence of mitral valve prolapse. There is no mitral valve stenosis. Doppler and Color-flow revealed trace mitral regurgitation. TRICUSPID VALVE The tricuspid valve is normal in structure and function. Doppler and Color Flow revealed trace tricuspid regurgitation. There is mild pulmonary hypertension. The PA pressure was estimated at 34 mmHg. There is no tricuspid valve stenosis. PULMONIC VALVE The pulmonic valve is not well visualized. Doppler and Color Flow revealed no pulmonic valvular regurgitation. There is no pulmonic valvular stenosis. GREAT VESSELS The aortic root is normal in size. The ascending aorta is normal in size. The IVC was not visualized. PERICARDIAL EFFUSION There is no evidence of significant pericardial effusion. Critical Notification Critical Value: No <Conclusion> The left ventricular systolic function is normal. The Ejection Fraction is 60%. There is normal LV segmental wall motion. Mild aortic regurgitation. Trace mitral regurgitation. Trace tricuspid regurgitation. The PA pressure was estimated at 34 mmHg. There is no evidence of significant pericardial effusion. Signed by : Leanne Saleh, Electronically Approved : 09/02/2019 09:58:23 DICTATED and SIGNED BY: LEANNE SALEH MD DATE: 09/02/19 0933 Laboratory Tests Test 09/01/19 11:27 09/01/19 14:05 09/01/19 16:20 09/01/19 16:53 Glucose (Fingerstick) 200 mg/dL (70-99) 188 mg/dL (70-99) Free Thyroxine 0.49 ng/dL (0.76-1.46) O2 Saturation 95 % (92-99) Arterial Blood pH 7.42 (7.35-7.45) Arterial Blood pCO2 at Patient Temp 38 mmHg (35-46) Arterial Blood pO2 at Patient Temp 77 mmHg (65-108) Arterial Blood HCO3 24 mmol/L (21-28) Arterial Blood Base Excess 0 mmol/L (-3-3) Oxyhemoglobin 94.4 % Methemoglobin 0.3 % (0.0-1.9) Carbon Monoxide, Quantitative 0.6 % (0.0-1.9) FiO2 21 Test 09/01/19 20:39 09/02/19 03:25 09/02/19 07:10 Glucose (Fingerstick) 296 mg/dL (70-99) 158 mg/dL (70-99) White Blood Count 5.5 x10^3/uL (4.0-11.0) Red Blood Count 4.47 x10^6/uL (4.30-5.70) Hemoglobin 14.6 g/dL (13.0-17.5) Hematocrit 42.3 % (39.0-53.0) Mean Corpuscular Volume 95 fL (79-100) Mean Corpuscular Hemoglobin 33 pg (25-35) Mean Corpuscular Hemoglobin Concent 35 g/dL (31-37) Red Cell Distribution Width 14.2 % (11.5-14.5) Platelet Count 176 x10^3/uL (140-400) Neutrophils (%) (Auto) 59 % (31-73) Lymphocytes (%) (Auto) 25 % (24-48) Monocytes (%) (Auto) 13 % (0-9) Eosinophils (%) (Auto) 3 % (0-3) Basophils (%) (Auto) 1 % (0-3) Neutrophils # (Auto) 3.3 x10^3/uL (1.8-7.7) Lymphocytes # (Auto) 1.4 x10^3/uL (1.0-4.8) Monocytes # (Auto) 0.7 x10^3/uL (0.0-1.1) Eosinophils # (Auto) 0.1 x10^3/uL (0.0-0.7) Basophils # (Auto) 0.0 x10^3/uL (0.0-0.2) Sodium Level 138 mmol/L (136-145) Potassium Level 4.2 mmol/L (3.5-5.1) Chloride Level 101 mmol/L (98-107) Carbon Dioxide Level 29 mmol/L (21-32) Anion Gap 8 (6-14) Blood Urea Nitrogen 13 mg/dL (8-26) Creatinine 1.2 mg/dL (0.7-1.3) Estimated GFR (Cockcroft-Gault) 59.0 BUN/Creatinine Ratio 11 (6-20) Glucose Level 250 mg/dL (70-99) Calcium Level 9.4 mg/dL (8.5-10.1) Total Bilirubin 0.5 mg/dL (0.2-1.0) Aspartate Amino Transf (AST/SGOT) 45 U/L (15-37) Alanine Aminotransferase (ALT/SGPT) 71 U/L (16-63) Alkaline Phosphatase 85 U/L (46-116) Total Protein 6.9 g/dL (6.4-8.2) Albumin 3.3 g/dL (3.4-5.0) Albumin/Globulin Ratio 0.9 (1.0-1.7) Triglycerides Level 382 mg/dL (0-150) Cholesterol Level 152 mg/dL (0-200) LDL Cholesterol, Calculated 60 mg/dL (0-100) VLDL Cholesterol, Calculated 76 mg/dL (0-40) Non-HDL Cholesterol Calculated 136 mg/dL (0-129) HDL Cholesterol 16 mg/dL (40-60) Cholesterol/HDL Ratio 9.5 Assessment and Plan Assessmemt and Plan Problems Medical Problems: (1) Shortness of breath Status: Acute Comment Review of Relevant I have reviewed the following items lena (where applicable) has been applied. Labs Laboratory Tests Test 08/31/19 18:50 08/31/19 20:00 09/01/19 07:32 09/01/19 11:27 White Blood Count 6.8 x10^3/uL (4.0-11.0) Red Blood Count 4.77 x10^6/uL (4.30-5.70) Hemoglobin 15.7 g/dL (13.0-17.5) Hematocrit 44.3 % (39.0-53.0) Mean Corpuscular Volume 93 fL (79-100) Mean Corpuscular Hemoglobin 33 pg (25-35) Mean Corpuscular Hemoglobin Concent 35 g/dL (31-37) Red Cell Distribution Width 13.9 % (11.5-14.5) Platelet Count 202 x10^3/uL (140-400) Neutrophils (%) (Auto) 56 % (31-73) Lymphocytes (%) (Auto) 25 % (24-48) Monocytes (%) (Auto) 15 % (0-9) Eosinophils (%) (Auto) 4 % (0-3) Basophils (%) (Auto) 1 % (0-3) Neutrophils # (Auto) 3.8 x10^3/uL (1.8-7.7) Lymphocytes # (Auto) 1.7 x10^3/uL (1.0-4.8) Monocytes # (Auto) 1.0 x10^3/uL (0.0-1.1) Eosinophils # (Auto) 0.3 x10^3/uL (0.0-0.7) Basophils # (Auto) 0.1 x10^3/uL (0.0-0.2) Prothrombin Time 12.9 SEC (11.7-14.0) Prothromb Time International Ratio 1.0 (0.8-1.1) D-Dimer (Francy) 0.80 ug/mlFEU (0.00-0.50) Sodium Level 135 mmol/L (136-145) Potassium Level 4.2 mmol/L (3.5-5.1) Chloride Level 100 mmol/L (98-107) Carbon Dioxide Level 20 mmol/L (21-32) Anion Gap 15 (6-14) Blood Urea Nitrogen 15 mg/dL (8-26) Creatinine 1.2 mg/dL (0.7-1.3) Estimated GFR (Cockcroft-Gault) 59.0 BUN/Creatinine Ratio 13 (6-20) Glucose Level 205 mg/dL (70-99) Calcium Level 9.3 mg/dL (8.5-10.1) Magnesium Level 1.9 mg/dL (1.8-2.4) Total Bilirubin 0.8 mg/dL (0.2-1.0) Aspartate Amino Transf (AST/SGOT) 88 U/L (15-37) Alanine Aminotransferase (ALT/SGPT) 87 U/L (16-63) Alkaline Phosphatase 91 U/L (46-116) Creatine Kinase 198 U/L (39-308) Creatine Kinase MB (Mass) 1.1 ng/mL (0.0-3.6) Creatine Kinase MB Relative Index 0.6 % (0-4) Troponin I Quantitative < 0.017 ng/mL (0.000-0.055) YX-Vpn-I-Type Natriuretic Peptide 54 pg/mL (0-449) Total Protein 7.3 g/dL (6.4-8.2) Albumin 3.4 g/dL (3.4-5.0) Albumin/Globulin Ratio 0.9 (1.0-1.7) Thyroid Stimulating Hormone (TSH) 0.088 uIU/mL (0.358-3.74) Urine Collection Type Unknown Urine Color Yellow Urine Clarity Clear Urine pH 5.5 Urine Specific [place] 1.025 Urine Protein Negative mg/dL (NEG-TRACE) Urine Glucose (UA) Negative mg/dL (NEG) Urine Ketones (Stick) Negative mg/dL (NEG) Urine Blood Negative (NEG) Urine Nitrite Negative (NEG) Urine Bilirubin Negative (NEG) Urine Urobilinogen Dipstick 1.0 mg/dL (0.2 mg/dL) Urine Leukocyte Esterase Negative (NEG) Urine RBC 1-2 /HPF (0-2) Urine WBC 1-4 /HPF (0-4) Urine Squamous Epithelial Cells Few /LPF Urine Bacteria Few /HPF (0-FEW) Urine Hyaline Casts Few /HPF Urine Mucus Marked /LPF Urine Opiates Screen Neg (NEG) Urine Methadone Screen Neg (NEG) Urine Barbiturates Neg (NEG) Urine Phencyclidine Screen Neg (NEG) Urine Amphetamine/Methamphetamine Neg (NEG) Urine Benzodiazepines Screen Neg (NEG) Urine Cocaine Screen Neg (NEG) Urine Cannabinoids Screen Neg (NEG) Urine Ethyl Alcohol Neg (NEG) Glucose (Fingerstick) 122 mg/dL (70-99) 200 mg/dL (70-99) Test 10/2/19 14:05 09/01/19 16:20 09/01/19 16:53 09/01/19 20:39 Free Thyroxine 0.49 ng/dL (0.76-1.46) O2 Saturation 95 % (92-99) Arterial Blood pH 7.42 (7.35-7.45) Arterial Blood pCO2 at Patient Temp 38 mmHg (35-46) Arterial Blood pO2 at Patient Temp 77 mmHg (65-108) Arterial Blood HCO3 24 mmol/L (21-28) Arterial Blood Base Excess 0 mmol/L (-3-3) Oxyhemoglobin 94.4 % Methemoglobin 0.3 % (0.0-1.9) Carbon Monoxide, Quantitative 0.6 % (0.0-1.9) FiO2 21 Glucose (Fingerstick) 188 mg/dL (70-99) 296 mg/dL (70-99) Test 09/02/19 03:25 09/02/19 07:10 White Blood Count 5.5 x10^3/uL (4.0-11.0) Red Blood Count 4.47 x10^6/uL (4.30-5.70) Hemoglobin 14.6 g/dL (13.0-17.5) Hematocrit 42.3 % (39.0-53.0) Mean Corpuscular Volume 95 fL (79-100) Mean Corpuscular Hemoglobin 33 pg (25-35) Mean Corpuscular Hemoglobin Concent 35 g/dL (31-37) Red Cell Distribution Width 14.2 % (11.5-14.5) Platelet Count 176 x10^3/uL (140-400) Neutrophils (%) (Auto) 59 % (31-73) Lymphocytes (%) (Auto) 25 % (24-48) Monocytes (%) (Auto) 13 % (0-9) Eosinophils (%) (Auto) 3 % (0-3) Basophils (%) (Auto) 1 % (0-3) Neutrophils # (Auto) 3.3 x10^3/uL (1.8-7.7) Lymphocytes # (Auto) 1.4 x10^3/uL (1.0-4.8) Monocytes # (Auto) 0.7 x10^3/uL (0.0-1.1) Eosinophils # (Auto) 0.1 x10^3/uL (0.0-0.7) Basophils # (Auto) 0.0 x10^3/uL (0.0-0.2) Sodium Level 138 mmol/L (136-145) Potassium Level 4.2 mmol/L (3.5-5.1) Chloride Level 101 mmol/L (98-107) Carbon Dioxide Level 29 mmol/L (21-32) Anion Gap 8 (6-14) Blood Urea Nitrogen 13 mg/dL (8-26) Creatinine 1.2 mg/dL (0.7-1.3) Estimated GFR (Cockcroft-Gault) 59.0 BUN/Creatinine Ratio 11 (6-20) Glucose Level 250 mg/dL (70-99) Calcium Level 9.4 mg/dL (8.5-10.1) Total Bilirubin 0.5 mg/dL (0.2-1.0) Aspartate Amino Transf (AST/SGOT) 45 U/L (15-37) Alanine Aminotransferase (ALT/SGPT) 71 U/L (16-63) Alkaline Phosphatase 85 U/L (46-116) Total Protein 6.9 g/dL (6.4-8.2) Albumin 3.3 g/dL (3.4-5.0) Albumin/Globulin Ratio 0.9 (1.0-1.7) Triglycerides Level 382 mg/dL (0-150) Cholesterol Level 152 mg/dL (0-200) LDL Cholesterol, Calculated 60 mg/dL (0-100) VLDL Cholesterol, Calculated 76 mg/dL (0-40) Non-HDL Cholesterol Calculated 136 mg/dL (0-129) HDL Cholesterol 16 mg/dL (40-60) Cholesterol/HDL Ratio 9.5 Glucose (Fingerstick) 158 mg/dL (70-99) Laboratory Tests Test 09/01/19 11:27 09/01/19 14:05 09/01/19 16:20 09/01/19 16:53 Glucose (Fingerstick) 200 mg/dL (70-99) 188 mg/dL (70-99) Free Thyroxine 0.49 ng/dL (0.76-1.46) O2 Saturation 95 % (92-99) Arterial Blood pH 7.42 (7.35-7.45) Arterial Blood pCO2 at Patient Temp 38 mmHg (35-46) Arterial Blood pO2 at Patient Temp 77 mmHg (65-108) Arterial Blood HCO3 24 mmol/L (21-28) Arterial Blood Base Excess 0 mmol/L (-3-3) Oxyhemoglobin 94.4 % Methemoglobin 0.3 % (0.0-1.9) Carbon Monoxide, Quantitative 0.6 % (0.0-1.9) FiO2 21 Test 09/01/19 20:39 09/02/19 03:25 09/02/19 07:10 Glucose (Fingerstick) 296 mg/dL (70-99) 158 mg/dL (70-99) White Blood Count 5.5 x10^3/uL (4.0-11.0) Red Blood Count 4.47 x10^6/uL (4.30-5.70) Hemoglobin 14.6 g/dL (13.0-17.5) Hematocrit 42.3 % (39.0-53.0) Mean Corpuscular Volume 95 fL (79-100) Mean Corpuscular Hemoglobin 33 pg (25-35) Mean Corpuscular Hemoglobin Concent 35 g/dL (31-37) Red Cell Distribution Width 14.2 % (11.5-14.5) Platelet Count 176 x10^3/uL (140-400) Neutrophils (%) (Auto) 59 % (31-73) Lymphocytes (%) (Auto) 25 % (24-48) Monocytes (%) (Auto) 13 % (0-9) Eosinophils (%) (Auto) 3 % (0-3) Basophils (%) (Auto) 1 % (0-3) Neutrophils # (Auto) 3.3 x10^3/uL (1.8-7.7) Lymphocytes # (Auto) 1.4 x10^3/uL (1.0-4.8) Monocytes # (Auto) 0.7 x10^3/uL (0.0-1.1) Eosinophils # (Auto) 0.1 x10^3/uL (0.0-0.7) Basophils # (Auto) 0.0 x10^3/uL (0.0-0.2) Sodium Level 138 mmol/L (136-145) Potassium Level 4.2 mmol/L (3.5-5.1) Chloride Level 101 mmol/L (98-107) Carbon Dioxide Level 29 mmol/L (21-32) Anion Gap 8 (6-14) Blood Urea Nitrogen 13 mg/dL (8-26) Creatinine 1.2 mg/dL (0.7-1.3) Estimated GFR (Cockcroft-Gault) 59.0 BUN/Creatinine Ratio 11 (6-20) Glucose Level 250 mg/dL (70-99) Calcium Level 9.4 mg/dL (8.5-10.1) Total Bilirubin 0.5 mg/dL (0.2-1.0) Aspartate Amino Transf (AST/SGOT) 45 U/L (15-37) Alanine Aminotransferase (ALT/SGPT) 71 U/L (16-63) Alkaline Phosphatase 85 U/L (46-116) Total Protein 6.9 g/dL (6.4-8.2) Albumin 3.3 g/dL (3.4-5.0) Albumin/Globulin Ratio 0.9 (1.0-1.7) Triglycerides Level 382 mg/dL (0-150) Cholesterol Level 152 mg/dL (0-200) LDL Cholesterol, Calculated 60 mg/dL (0-100) VLDL Cholesterol, Calculated 76 mg/dL (0-40) Non-HDL Cholesterol Calculated 136 mg/dL (0-129) HDL Cholesterol 16 mg/dL (40-60) Cholesterol/HDL Ratio 9.5 Medications Current Medications Iohexol (Omnipaque 350 Mg/ml) 75 ml 1X ONCE IV ; Start 08/31/19 at 22:00; Stop 08/31/19 at 22:01; Status DC Info (CONTRAST GIVEN -- Rx MONITORING) 1 each PRN DAILY PRN MC SEE COMMENTS; Start 08/31/19 at 21:30; Stop 09/02/19 at 21:29 Insulin Human Lispro (HumaLOG) 0-5 UNITS TIDWMEALS SQ Last administered on 09/02/19at 09:18; Start 09/01/19 at 08:00 Dextrose (Dextrose 50%-Water Syringe) 12.5 gm PRN Q15MIN PRN IV SEE COMMENTS; Start 09/01/19 at 01:00 Amlodipine Besylate (Norvasc) 5 mg DAILY PO Last administered on 09/02/19at 09:00; Start 09/01/19 at 14:00 Aspirin (Ecotrin) 81 mg DAILY PO Last administered on 09/02/19 09:00; Start 09/01/19 at 14:00 Atorvastatin Calcium (Lipitor) 20 mg HS PO Last administered on 09/01/19at 21:01; Start 09/01/19 at 21:00 Calcium/Vitamin D (Oscal D 500mg/ 200uts) 1 tab DAILY PO Last administered on 09/02/19 09:00; Start 09/01/19 at 14:00 Vitamin D (Vitamin D3) 1,000 unit DAILY PO Last administered on 09/02/19 09:0 0; Start 09/01/19 at 14:00 Gabapentin (Neurontin) 100 mg TID PO Last administered on 09/02/19 09:00; Start 09/01/19 at 14:00 Glipizide (Glucotrol) 5 mg DAILYWBKFT PO Last administered on 09/02/19 08:00; Start 09/02/19 at 08:00 Acetaminophen/ Hydrocodone Bitart (Lortab 7.5/325) 1 tab PRN Q6HRS PRN PO MODERATE PAIN Last administered on 09/01/19 14:29; Start 09/01/19 at 13:15 Hydrocortisone (Cortef) 10 mg DAILY PO ; Start 09/01/19 at 14:00; Status Cancel Levothyroxine Sodium (Synthroid) 125 mcg DAILYAC PO Last administered on 09/02/19at 07:30; Start 09/02/19 at 07:30 Metoprolol Succinate (Toprol Xl) 25 mg DAILY PO Last administered on 09/02/19 09:00; Start 09/01/19 at 14:00 Oxycodone/ Acetaminophen (Percocet 10/325) 1 tab PRN Q6HRS PRN PO SEVERE PAIN; Start 09/01/19 at 13:15 Sertraline HCl (Zoloft) 50 mg DAILY PO Last administered on 09/02/19 09:00; Start 09/01/19 at 14:00 Non-Formulary Medication (Budesonide/ Formoterol Fumarate (Symbicort 160-4.5 Mcg Inhaler)) 2 puff BID IH ; Start 09/01/19 at 21:00; Status UNV Non-Formulary Medication (Difluprednate (Durezol)) 5 ml BID OP ; Start 09/01/19 at 21:00; Status UNV Metformin HCl (Glucophage) 1,000 mg BIDWMEALS PO ; Start 09/03/19 at 08:00 Pantoprazole Sodium (Protonix) 40 mg DAILYAC PO Last administered on 09/02/19at 07:30; Start 09/02/19 at 07:30 Lisinopril (Prinivil) 20 mg DAILY PO Last administered on 09/02/19at 09:00; Start 09/01/19 at 14:00 Non-Formulary Medication (Tobramycin/ Dexamethasone (Tobradex Eye Ointment)) 1 gary BID OS ; Start 09/01/19 at 21:00; Status UNV Budesonide (Pulmicort) 0.5 mg RTBID NEB Last administered on 09/02/19at 08:09; Start 09/01/19 at 20:00 Albuterol Sulfate (Ventolin Neb Soln) 2.5 mg RTQID NEB ; Start 09/01/19 at 16:00; Status Cancel Enoxaparin Sodium (Lovenox Per Pharmacy Treatment Dosing) 1 each PRN DAILY PRN MC SEE COMMENTS; Start 09/01/19 at 13:30 Sodium Chloride (Normal Saline Flush) 3 ml QSHIFT PRN IV AFTER MEDS AND BLOOD DRAWS; Start 09/01/19 at 13:30 Ondansetron HCl (Zofran) 4 mg PRN Q4HRS PRN IV NAUSEA/VOMITING; Start 09/01/19 at 13:30 Acetaminophen (Tylenol) 650 mg PRN Q4HRS PRN PO TEMP OVER 100.4F OR MILD PAIN; Start 09/01/19 at 13:30 Clonidine HCl (Catapres) 0.1 mg PRN Q6HRS PRN PO SBP>160 OR DBP>90; Start 09/01/19 at 13:30 Docusate Sodium (Colace) 100 mg PRN BID PRN PO HARD STOOLS; Start 09/01/19 at 13:30 Albuterol/ Ipratropium (Duoneb) 3 ml Q4HRS NEB Last administered on 09/02/19at 08:09; Start 09/01/19 at 16:00 Guaifenesin (Robitussin) 200 mg PRN Q4HRS PRN PO COUGH; Start 09/01/19 at 13:30 Enoxaparin Sodium (Lovenox 120mg Syringe) 110 mg Q12HR SQ Last administered on 09/02/19at 09:17; Start 09/01/19 at 14:00 Hydrocortisone (Cortef) 20 mg BID PO ; Start 09/01/19 at 21:00; Status Cancel Hydrocortisone (Cortef) 10 mg 1X ONCE PO Last administered on 09/01/19at 15:04; Start 09/01/19 at 14:45; Stop 09/01/19 at 14:46; Status DC Hydrocortisone (Cortef) 10 mg HS PO Last administered on 09/01/19at 21:01; Start 09/01/19 at 21:00 Hydrocortisone (Cortef) 20 mg DAILYWBKFT PO Last administered on 09/02/19at 08:00; Start 09/02/19 at 08:00 Active Scripts Active Reported Cortef (Hydrocortisone) 20 Mg Tablet 20 Mg PO DAILY08 Cortef (Hydrocortisone) 10 Mg Tablet 10 Mg PO HS Calcium 500 + Vit D 200 Tablet (Calcium Carbonate/Vitamin D3) 1 Each Tablet 1 Each PO DAILY Vitamin D3 (Cholecalciferol (Vitamin D3)) 1,000 Unit Tablet 1,000 Unit PO DAILY Aspirin Ec (Aspirin) 81 Mg Tablet.dr 81 Mg PO DAILY Glipizide 5 Mg Tablet 5 Mg PO DAILY Atorvastatin Calcium 20 Mg Tablet 20 Mg PO HS Durezol (Difluprednate) 5 Ml Drops 5 Ml OP BID Tobradex Eye Ointment (Tobramycin/Dexamethasone) 3.5 Gm Oint...g. 1 Gary OS BID Protonix (Pantoprazole Sodium) 20 Mg Tablet.dr 40 Mg PO DAILY Symbicort 160-4.5 Mcg Inhaler (Budesonide/Formoterol Fumarate) 10.2 Gm Hfa.aer.ad 2 Puff IH BID Percocet 10-325 Mg Tablet (Oxycodone/Acetaminophen) 1 Each Tablet 1 Tab PO PRN Q6HRS PRN Zoloft (Sertraline Hcl) 50 Mg Tablet 50 Mg PO DAILY Metformin Hcl 1,000 Mg Tablet 1,000 Mg PO BIDWMEALS Neurontin (Gabapentin) 100 Mg Capsule 100 Mg PO TID Synthroid (Levothyroxine Sodium) 125 Mcg Tablet 125 Mcg PO DAILYAC Metoprolol Succinate ( Xl ) (Metoprolol Succinate) 25 Mg Tab.er.24h 25 Mg PO DAILY Hydrocodone-Apap 7.5-325 (Hydrocodone Bit/Acetaminophen) 1 Tab Tablet 1 Tab PO PRN Q6HRS PRN Amlodipine Besylate 5 Mg Tablet 5 Mg PO DAILY Ramipril 10 Mg Capsule 1 Cap PO DAILY Vitals/I & O Vital Sign - Last 24 Hours 09/01/19 09/01/19 09/01/19 09/01/19 11:00 14:26 14:26 14:27 Temp 98.4 98.4 Pulse 97 91 91 91 Resp 18 B/P (MAP) 125/50 (75) 134/62 134/62 134/62 Pulse Ox 94 O2 Delivery Room Air 09/01/19 09/01/19 09/01/19 09/01/19 14:29 14:56 16:20 19:02 Temp 97.5 98.3 97.5 98.3 Pulse 102 75 Resp 20 18 B/P (MAP) 122/95 (104) 112/44 (66) Pulse Ox 92 92 91 O2 Delivery Room Air Room Air Room Air Room Air 09/01/19 09/01/19 09/01/19 09/02/19 19:53 20:00 23:16 03:29 Temp 98.1 98.0 98.1 98.0 Pulse 76 72 Resp 18 18 B/P (MAP) 110/46 (67) 134/61 (85) Pulse Ox 92 90 97 O2 Delivery Room Air Room Air Room Air Nasal Cannula O2 Flow Rate 2.0 09/02/19 09/02/19 09/02/19 09/02/19 07:47 08:10 09:00 09:00 Temp 97.8 97.8 Pulse 76 76 76 Resp 18 B/P (MAP) 142/74 (96) 142/74 142/74 Pulse Ox 99 95 O2 Delivery Nasal Cannula Room Air O2 Flow Rate 2.0 09/02/19 09:00 Pulse 76 B/P (MAP) 142/74 Intake and Output 09/01/19 09/01/19 09/02/19 15:00 23:00 07:00 Intake Total 360 ml 300 ml 550 ml Output Total 300 ml Balance 360 ml 300 ml 250 ml ELIZABETH MAZARIEGOS MD Sep 02, 2019 10:25
--- NOTE | 2019-09-02 11:02 | PDOC ---
CARDIO Progress Notes Date and Time Date of Service 09/02/19 Time of Evaluation 1045 Subjective Subjective: No Chest Pain, No Palpitations, Other (breathing better, but has not exerted himself today) Vitals Vitals Vital Signs Date Time Temp Pulse Resp B/P (MAP) Pulse Ox O2 Delivery O2 Flow Rate FiO2 09/02/19 09:00 76 142/74 09/02/19 08:10 95 Room Air 09/02/19 07:47 97.8 18 2.0 97.8 Weight Weight [ ] Input and Output Intake and Output Intake and Output 09/02/19 06:59 Intake Total 1210 ml Output Total 300 ml Balance 910 ml Intake Oral 1210 ml Output Urine Total 300 ml Laboratory Labs Laboratory Tests Test 09/01/19 11:27 09/01/19 14:05 09/01/19 16:20 09/01/19 16:53 Glucose (Fingerstick) 200 mg/dL (70-99) 188 mg/dL (70-99) Free Thyroxine 0.49 ng/dL (0.76-1.46) O2 Saturation 95 % (92-99) Arterial Blood pH 7.42 (7.35-7.45) Arterial Blood pCO2 at Patient Temp 38 mmHg (35-46) Arterial Blood pO2 at Patient Temp 77 mmHg (65-108) Arterial Blood HCO3 24 mmol/L (21-28) Arterial Blood Base Excess 0 mmol/L (-3-3) Oxyhemoglobin 94.4 % Methemoglobin 0.3 % (0.0-1.9) Carbon Monoxide, Quantitative 0.6 % (0.0-1.9) FiO2 21 Test 09/01/19 20:39 09/02/19 03:25 09/02/19 07:10 Glucose (Fingerstick) 296 mg/dL (70-99) 158 mg/dL (70-99) White Blood Count 5.5 x10^3/uL (4.0-11.0) Red Blood Count 4.47 x10^6/uL (4.30-5.70) Hemoglobin 14.6 g/dL (13.0-17.5) Hematocrit 42.3 % (39.0-53.0) Mean Corpuscular Volume 95 fL (79-100) Mean Corpuscular Hemoglobin 33 pg (25-35) Mean Corpuscular Hemoglobin Concent 35 g/dL (31-37) Red Cell Distribution Width 14.2 % (11.5-14.5) Platelet Count 176 x10^3/uL (140-400) Neutrophils (%) (Auto) 59 % (31-73) Lymphocytes (%) (Auto) 25 % (24-48) Monocytes (%) (Auto) 13 % (0-9) Eosinophils (%) (Auto) 3 % (0-3) Basophils (%) (Auto) 1 % (0-3) Neutrophils # (Auto) 3.3 x10^3/uL (1.8-7.7) Lymphocytes # (Auto) 1.4 x10^3/uL (1.0-4.8) Monocytes # (Auto) 0.7 x10^3/uL (0.0-1.1) Eosinophils # (Auto) 0.1 x10^3/uL (0.0-0.7) Basophils # (Auto) 0.0 x10^3/uL (0.0-0.2) Sodium Level 138 mmol/L (136-145) Potassium Level 4.2 mmol/L (3.5-5.1) Chloride Level 101 mmol/L (98-107) Carbon Dioxide Level 29 mmol/L (21-32) Anion Gap 8 (6-14) Blood Urea Nitrogen 13 mg/dL (8-26) Creatinine 1.2 mg/dL (0.7-1.3) Estimated GFR (Cockcroft-Gault) 59.0 BUN/Creatinine Ratio 11 (6-20) Glucose Level 250 mg/dL (70-99) Calcium Level 9.4 mg/dL (8.5-10.1) Total Bilirubin 0.5 mg/dL (0.2-1.0) Aspartate Amino Transf (AST/SGOT) 45 U/L (15-37) Alanine Aminotransferase (ALT/SGPT) 71 U/L (16-63) Alkaline Phosphatase 85 U/L (46-116) Total Protein 6.9 g/dL (6.4-8.2) Albumin 3.3 g/dL (3.4-5.0) Albumin/Globulin Ratio 0.9 (1.0-1.7) Triglycerides Level 382 mg/dL (0-150) Cholesterol Level 152 mg/dL (0-200) LDL Cholesterol, Calculated 60 mg/dL (0-100) VLDL Cholesterol, Calculated 76 mg/dL (0-40) Non-HDL Cholesterol Calculated 136 mg/dL (0-129) HDL Cholesterol 16 mg/dL (40-60) Cholesterol/HDL Ratio 9.5 Physical Exam HEENT: Neck Supple W Full Motion Chest: Symmetric LUNGS: Clear to Auscultation Heart: S1S2, RRR, murmurs (2/6 systolic murmur ) Assessment Assessment 1. Dyspnea, COPD; Doubt overt HF. 2. CAD s/p remote PCI/stent x6. Previously followed at [facility]. Last seen 2 years ago. Echo showed preserved LV systolic function, no WMA 3. Hypertension; controlled 4. Hyperlipidemia; statin 5. Diabetes, II; as per PCP 6. Hypothyroidism; TSH 0.08 7. Elevated d-dimer; VQ with intermediate probability for PE. CTA today. 8. Elevated LFTs, mild 9. 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 Recommendations Secondary prevention measures including ASA, statin, BB, ACEi Awaiting records from [facility] Increase activity at tolerated. Supportive care from a CV standpoint Consider outpatient ischemic evaluation EULALIA CONNER APRN Sep 02, 2019 11:01
--- NOTE | 2019-09-02 11:03 | CONS ---
DATE OF CONSULTATION: PULMONARY CONSULTATION ATTENDING PHYSICIAN: Pawel Allen MD REASON FOR CONSULTATION: Dyspnea, abnormal V/Q scan. HISTORY OF PRESENT ILLNESS: The patient is a 74-year-old obese male with a BMI of 37. He has history of COPD, smoked for 40 years before quitting cigarettes. He presented to the Emergency Room with complaint of generalized weakness. He has felt that there was some anxiety and shortness of breath caused by anxiety. He said he has been on testosterone injections since 1984 due to inactive glands. He has not received in the last 4 months and he felt that he was weak because of that. He had a chest x-ray done, which was reviewed by me and it shows no acute infiltrates. He then underwent V/Q scan, which showed intermediate probability for pulmonary embolism. It is possible that those defects in the lower lobes were matched. His Dopplers were negative. The patient is on room air. He is not having any shortness of breath. He was started on full-dose Lovenox. I have been asked to see him for further evaluation. His D-dimer was 0.8, which was mildly elevated. He has never had any history of thromboembolic disease. PAST MEDICAL HISTORY: Significant for COPD, not on home oxygen; history of CLYDE with claustrophobia to CPAP mask and as a result, he is on oxygen at nighttime; history of CAD with stents x 6. PAST SURGICAL HISTORY: History of corneal transplant, cataract surgery and seventh nerve decompression surgery. FAMILY HISTORY: Chronic bronchitis. SOCIAL HISTORY: Smoked for 40 years before quitting in 2004. No history of alcohol use. ALLERGIES: PENICILLIN, SULFA, AND PREDNISONE. REVIEW OF SYSTEMS: Twelve-point system obtained. Pertinent positives discussed in my history of present illness, otherwise noncontributory. All systems that were negative were reviewed as well. PHYSICAL EXAMINATION: VITAL SIGNS: Reviewed. Stable on room air. His pulse ox is 95%, afebrile. HEENT: Sclerae nonicteric. NECK: Supple. LUNGS: Clear. CARDIOVASCULAR: With a regular rate. ABDOMEN: Soft, obese. EXTREMITIES: With 1+ pitting edema. LABORATORY DATA: Labs are reviewed. ABGs with a pH of 7.42, pCO2 of 30 and a pO2 of 77 on room air. White cell count 5.5, platelets are normal. BUN and creatinine 13 and 1.2. IMPRESSION: 1. Dyspnea with no significant hypoxia. He attributes dyspnea to weakness and anxiety as he has not received his testosterone injections in the last 4 months. The V/Q scan is intermediate probability. I suspected they are mostly matched defects from his chronic obstructive pulmonary disease. Clinical suspicion for thromboembolic disease is low. His Dopplers were negative as well. However, I will do a CTA chest to be absolutely sure. He is on testosterone which does place him at risk for thromboembolic disease. 2. No evidence of deep venous thrombosis. 3. Underlying chronic obstructive pulmonary disease, which is clinically compensated. 4. History of obstructive sleep apnea with claustrophobia to CPAP mask. He uses oxygen at nighttime. 5. Morbid obesity with possible cor pulmonale. RECOMMENDATIONS: 1. Continue with full-dose Lovenox for now. 2. Ordered CTA chest. 3. DuoNebs. 4. Hydrocortisone chronically. 5. Continue bronchodilators. 6. Further recommendations to follow after review of the CTA chest. Discussed with RN. VANESSA GAMBOA MD DR: NEETU/evonne JOB#: [id number] / [id number]
--- NOTE | 2019-09-02 16:04 | RAD ---
Cervical spine CT without contrast History: Upper and lower extremity weakness Technique: Noncontrast CT imaging was performed of the cervical spine. Multiplanar images are reviewed. Exposure: One or more of the following individualized dose reduction techniques were utilized for this examination: 1. Automated exposure control 2. Adjustment of the mA and/or kV according to patient size 3. Use of iterative reconstruction technique. Comparison: None Findings: No cervical spine acute fracture is identified. Vertebral body stature is preserved. AP is alignment is within normal limits. Atlanto-axial distance is within normal limits. There is appropriate alignment of lateral masses of C1 relative to C2. Occipital condylar-C1 relationship is maintained. There is advanced degenerative disc disease C6-7, to lesser degree at C4-5, C5-6, and C7-T1. There is mild levoscoliosis of cervical spine. C2-C3: Neural foramina and spinal canal are adequate. C3-C4: There is moderate to severe facet degenerative change bilaterally. There is minimal posterior disc osteophyte complex, likely central canal stenosis about 8 mm. There is mild neural foramina compromise greater on the left. C4-5: There is minimal disc osteophyte complex, likely central canal stenosis about 9 mm. There is bilateral facet degenerative change. There is mild narrowing of the right neural foramen, left neural foramen adequate. C5-6: There is very minimal disc osteophyte complex. Central canal is likely borderline about 10 mm. There is bilateral facet degenerative change somewhat greater on the right. There is mild right uncovertebral degenerative change. There is minimal narrowing of the left neural foramen, [id number] narrowing on the right. C6-7: There is minimal disc osteophyte complex somewhat greater in the left lateral recess. Central canal is adequate about 11 mm, likely mild left lateral recess stenosis. There is left uncovertebral degenerative change resulting in fairly severe narrowing of the left neural foramen. Right neural foramen is adequate. C7-T1: There is very minimal disc osteophyte complex. Spinal canal and neural foramina are overall adequate. Impression: 1. There is multilevel degenerative disc disease greatest at C6-7, to a lesser degree at C4-5, C5-6, C7-T1. There is multilevel spondylosis. There is likely mild spinal stenosis about 8 mm at C3-4 and to a lesser degree at C4-5. 2. Uncovertebral degenerative change results in fairly severe narrowing of the left C6-7 neural foramen. There is also multilevel facet degenerative change. There is a lesser degree of [id number] narrowing of the right C5-6 neural foramen, minimal narrowing on the left at C5-6 and C4-5 and bilaterally at C3-C4. Electronically signed by: Eddie Oh MD (09/02/2019 4:01 PM) [id number]
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
[2019-09-02] MEDS: ATORVASTATIN CALCIUM 20 MG TABLET PO SCH (20:34)
[2019-09-02] MEDS: CALCIUM CARBONATE 500 MG TAB.CHEW PO PRN (22:25)
--- NOTE | 2019-09-02 22:37 | NUR ---
Pt called out c/o pain in his right chest. Vitals taken during the time and bp wnl 112/56 pt O2 saturation 96% on RA. Pt states having some discomfort and just finished eating ice cream. Pt instructed that it could possibly be indigestion and pt did change positions and states the discomfort was better. This nurse questioned pt of medication he takes for indigestion and pt states he sometimes takes tums. Called logistics solution manager Physician and received ok orders. Entered pt's room to give tums and pt states feeling better. Pt still took the tums.
[2019-09-03] MEDS: IPRATRPIUM/ALBUTEROL 0.5/2.5MG 3 ML NEBU. NEB SCH ×6 (00:37→20:00)
[2019-09-03 07:45] VITALS: BP 133/65
[2019-09-03] MEDS: PANTOPRAZOLE 40 MG TABLET.DR. PO SCH (07:49)
[2019-09-03] MEDS: LEVOTHYROXINE 125 MCG TABLET PO SCH (07:49)
[2019-09-03] MEDS: INSULIN LISPRO 300 UNITS/3 ML VIAL. SQ SCH ×3 (08:00→17:00)
[2019-09-03] MEDS ORDERED: metFORMIN 500 MG TABLET PO SCH (08:00)
[2019-09-03] MEDS: BUDESONIDE 0.5 MG/2 ML NEBU. NEB SCH ×2 (08:04→20:00)
--- NOTE | 2019-09-03 08:27 | PDOC ---
PROGRESS NOTES History of Present Illness History of Present Illness VTE Prophylaxis Ordered VTE Prophylaxis Devices: Yes VTE Pharmacological Prophylaxi: Yes Assessment/Plan Assessment/Plan Impression: generalized weakness COPD HX dyspnea 09/01 on echo left ventricular systolic function is normal. Ejection Fraction is 60%.normal LV segmental wall motion. Mild aortic regurgitation. Trace mitral regurgitation. Trace tricuspid regurgitation. PA pressure was estimated at 34 mmHg. The Ejection Fraction is 60%. There is normal LV segmental wall motion. Mild aortic regurgitation. Generalized weakness on ct 09/02 multilevel degenerative disc disease greatest at C6-7, to a lesser degree at C4-5, C5-6, C7-T1. There is multilevel spondylosis. There is likely mild spinal stenosis about 8 mm at C3-4 and to a lesser degree at C4-5. Uncovertebral degenerative change results in fairly severe narrowing of the left C6-7 neural foramen. There is also multilevel facet degenerative change. There is a lesser degree of fobf-[id number] narrowing of the right C5-6 neural foramen, minimal narrowing on the left at C5-6 and C4-5 and bilaterally at C3-C4. Shortness of breath WITH HIGH D-DIMER Intermediate probability for pulmonary embolism. ON V/Q SCAN POA CRI MORBID OBESITY HX REMOTE TOBACCO ABUSE HYPERLIPIDEMIA ADMITTED 02 support PRN CONSIDER CTA R/O PE ECHO CARDIOLOGY CONSULT PULM CONSULT RASTA QID TSH IS LOW, CHK FREE T4 SQ LOVENOX ONE MG/KG BID UNTIL PULM SEES CTA CHEST 09/03 neg for PE consult dr CENTENO Will consider for outpt MPI pending PE workup still feeling very weak 09/03 REPEAT FREE T4 TODAY 26 MIN PT EXAM, CHART REVIEW, > 50% OF TIME SPENT WITH EXAM, CHART REVIEW, PT CARE COORDINATION Vitals Vitals Vital Signs Date Time Temp Pulse Resp B/P (MAP) Pulse Ox O2 Delivery O2 Flow Rate FiO2 09/03/19 08:07 96 Room Air 09/03/19 07:45 98.0 72 133/65 (87) 98.0 09/02/19 23:42 20 09/02/19 20:00 2.0 Physical Exam General: Alert, Oriented X3, Cooperative, No acute distress Heart: Regular rate, Normal S1, Normal S2 Lungs: Clear Abdomen: Normal bowel sounds, Soft, Other (obese ) Extremities: No cyanosis, No edema, Normal pulses Skin: No significant lesion Labs LABS RIGHT VENTRICLE The right ventricle is normal size. The right ventricular systolic function is normal. ATRIA The left atrium is mildly dilated. The right atrium size is normal. The interatrial septum is intact with no evidence for an atrial septal defect or patent foramen ovale as noted on 2-D or Doppler imaging. AORTIC VALVE The aortic valve is normal in structure and function. Doppler and Color Flow revealed mild aortic regurgitation. There is no significant aortic valvular s tenosis. MITRAL VALVE The mitral valve is calcified but opens well. Mitral annular calcification is mild. There is no evidence of mitral valve prolapse. There is no mitral valve stenosis. Doppler and Color-flow revealed trace mitral regurgitation. TRICUSPID VALVE The tricuspid valve is normal in structure and function. Doppler and Color Flow revealed trace tricuspid regurgitation. There is mild pulmonary hypertension. The PA pressure was estimated at 34 mmHg. There is no tricuspid valve stenosis. PULMONIC VALVE The pulmonic valve is not well visualized. Doppler and Color Flow revealed no pulmonic valvular regurgitation. There is no pulmonic valvular stenosis. GREAT VESSELS The aortic root is normal in size. The ascending aorta is normal in size. The IVC was not visualized. PERICARDIAL EFFUSION There is no evidence of significant pericardial effusion. Critical Notification Critical Value: No <Conclusion> The left ventricular systolic function is normal. The Ejection Fraction is 60%. There is normal LV segmental wall motion. Mild aortic regurgitation. Trace mitral regurgitation. Trace tricuspid regurgitation. The PA pressure was estimated at 34 mmHg. There is no evidence of significant pericardial effusion. Signed by : Gregory Saleh, Electronically Approved : 09/02/2019 09:58:23 STATUS: ADM IN ORD. PHYSICIAN: VANESSA GAMBOA MD REASON: SOA, PE PROCEDURE: CT ANGIOGRAPHY CHEST Examination: CT ANGIOGRAPHY CHEST History: Shortness of breath Comparison/Correlation: None Findings: Axial images of chest were obtained following IV contrast pulmonary arteriography protocol. Sagittal and coronal reformatted images were provided. Maximum intensity projection images were provided. Adequate opacification of the pulmonary arterial vasculature is noted. No pulmonary arterial thromboembolic disease. No pleural or pericardial effusion. No enlarged thoracic lymph nodes. No infiltrates or atelectasis. No pneumothorax. Mosaic attenuation of the lung dyer is noted. Tracheobronchial tree is unremarkable. Incidental note is made of significant calcification of the proximal left anterior descending coronary artery and the right coronary artery. Diffuse fatty infiltration of liver is present. Bony structures are unremarkable. Thoracic aorta is unremarkable. Impression: No pulmonary arterial thromboembolic disease. No infiltrate. Mosaic attenuation lung dyer which may represent small airways disease. Fatty infiltration of the liver. PQRS Compliance Statement: One or more of the following individualized dose reduction techniques were utilized for this examination: Cervical spine CT without contrast History: Upper and lower extremity weakness Technique: Noncontrast CT imaging was performed of the cervical spine. Multiplanar images are reviewed. Exposure: One or more of the following individualized dose reduction techniques were utilized for this examination: 1. Automated exposure control 2. Adjustment of the mA and/or kV according to patient size 3. Use of iterative reconstruction technique. Comparison: None Findings: No cervical spine acute fracture is identified. Vertebral body stature is preserved. AP is alignment is within normal limits. Atlanto-axial distance is within normal limits. There is appropriate alignment of lateral masses of C1 relative to C2. Occipital condylar-C1 relationship is maintained. There is advanced degenerative disc disease C6-7, to lesser degree at C4-5, C5-6, and C7-T1. There is mild levoscoliosis of cervical spine. C2-C3: Neural foramina and spinal canal are adequate. C3-C4: There is moderate to severe facet degenerative change bilaterally. There is minimal posterior disc osteophyte complex, likely central canal stenosis about 8 mm. There is mild neural foramina compromise greater on the left. C4-5: There is minimal disc osteophyte complex, likely central canal stenosis about 9 mm. There is bilateral facet degenerative change. There is mild narrowing of the right neural foramen, left neural foramen adequate. C5-6: There is very minimal disc osteophyte complex. Central canal is likely borderline about 10 mm. There is bilateral facet degenerative change somewhat greater on the right. There is mild right uncovertebral degenerative change. There is minimal narrowing of the left neural foramen, faer-[id number] narrowing on the right. C6-7: There is minimal disc osteophyte complex somewhat greater in the left lateral recess. Central canal is adequate about 11 mm, likely mild left lateral recess stenosis. There is left uncovertebral degenerative change resulting in fairly severe narrowing of the left neural foramen. Right neural foramen is adequate. C7-T1: There is very minimal disc osteophyte complex. Spinal canal and neural foramina are overall adequate. Impression: 1. There is multilevel degenerative disc disease greatest at C6-7, to a lesser degree at C4-5, C5-6, C7-T1. There is multilevel spondylosis. There is likely mild spinal stenosis about 8 mm at C3-4 and to a lesser degree at C4-5. 2. Uncovertebral degenerative change results in fairly severe narrowing of the left C6-7 neural foramen. There is also multilevel facet degenerative change. There is a lesser degree of [id number] narrowing of the right C5-6 neural foramen, minimal narrowing on the left at C5-6 and C4-5 and bilaterally at C3-C4. Electronically signed by: Lola Epperson MD (09/02/2019 4:01 PM) [facility] DICTATED and SIGNED BY: LOLA EPPERSON MD DATE: 09/02/19 160 Laboratory Tests Test 09/02/19 11:37 09/02/19 16:46 09/02/19 20:48 09/03/19 07:15 Glucose (Fingerstick) 251 mg/dL (70-99) 270 mg/dL (70-99) 227 mg/dL (70-99) 132 mg/dL (70-99) Assessment and Plan Assessmemt and Plan Problems Medical Problems: (1) Shortness of breath Status: Acute Comment Review of Relevant I have reviewed the following items lena (where applicable) has been applied. Labs Laboratory Tests Test 09/01/19 11:27 09/01/19 14:05 09/01/19 16:20 09/01/19 16:53 Glucose (Fingerstick) 200 mg/dL (70-99) 188 mg/dL (70-99) Free Thyroxine 0.49 ng/dL (0.76-1.46) O2 Saturation 95 % (92-99) Arterial Blood pH 7.42 (7.35-7.45) Arterial Blood pCO2 at Patient Temp 38 mmHg (35-46) Arterial Blood pO2 at Patient Temp 77 mmHg (65-108) Arterial Blood HCO3 24 mmol/L (21-28) Arterial Blood Base Excess 0 mmol/L (-3-3) Oxyhemoglobin 94.4 % Methemoglobin 0.3 % (0.0-1.9) Carbon Monoxide, Quantitative 0.6 % (0.0-1.9) FiO2 21 Test 09/01/19 20:39 09/02/19 03:25 09/02/19 07:10 09/02/19 11:37 Glucose (Fingerstick) 296 mg/dL (70-99) 158 mg/dL (70-99) 251 mg/dL (70-99) White Blood Count 5.5 x10^3/uL (4.0-11.0) Red Blood Count 4.47 x10^6/uL (4.30-5.70) Hemoglobin 14.6 g/dL (13.0-17.5) Hematocrit 42.3 % (39.0-53.0) Mean Corpuscular Volume 95 fL (79-100) Mean Corpuscular Hemoglobin 33 pg (25-35) Mean Corpuscular Hemoglobin Concent 35 g/dL (31-37) Red Cell Distribution Width 14.2 % (11.5-14.5) Platelet Count 176 x10^3/uL (140-400) Neutrophils (%) (Auto) 59 % (31-73) Lymphocytes (%) (Auto) 25 % (24-48) Monocytes (%) (Auto) 13 % (0-9) Eosinophils (%) (Auto) 3 % (0-3) Basophils (%) (Auto) 1 % (0-3) Neutrophils # (Auto) 3.3 x10^3/uL (1.8-7.7) Lymphocytes # (Auto) 1.4 x10^3/uL (1.0-4.8) Monocytes # (Auto) 0.7 x10^3/uL (0.0-1.1) Eosinophils # (Auto) 0.1 x10^3/uL (0.0-0.7) Basophils # (Auto) 0.0 x10^3/uL (0.0-0.2) Sodium Level 138 mmol/L (136-145) Potassium Level 4.2 mmol/L (3.5-5.1) Chloride Level 101 mmol/L (98-107) Carbon Dioxide Level 29 mmol/L (21-32) Anion Gap 8 (6-14) Blood Urea Nitrogen 13 mg/dL (8-26) Creatinine 1.2 mg/dL (0.7-1.3) Estimated GFR (Cockcroft-Gault) 59.0 BUN/Creatinine Ratio 11 (6-20) Glucose Level 250 mg/dL (70-99) Calcium Level 9.4 mg/dL (8.5-10.1) Total Bilirubin 0.5 mg/dL (0.2-1.0) Aspartate Amino Transf (AST/SGOT) 45 U/L (15-37) Alanine Aminotransferase (ALT/SGPT) 71 U/L (16-63) Alkaline Phosphatase 85 U/L (46-116) Total Protein 6.9 g/dL (6.4-8.2) Albumin 3.3 g/dL (3.4-5.0) Albumin/Globulin Ratio 0.9 (1.0-1.7) Triglycerides Level 382 mg/dL (0-150) Cholesterol Level 152 mg/dL (0-200) LDL Cholesterol, Calculated 60 mg/dL (0-100) VLDL Cholesterol, Calculated 76 mg/dL (0-40) Non-HDL Cholesterol Calculated 136 mg/dL (0-129) HDL Cholesterol 16 mg/dL (40-60) Cholesterol/HDL Ratio 9.5 Vitamin B12 Level 370 pg/mL (247-911) Free Triiodothyronine (T3) pg/mL 2.23 pg/mL (2.18-3.98) Test 09/02/19 16:46 09/02/19 20:48 09/03/19 07:15 Glucose (Fingerstick) 270 mg/dL (70-99) 227 mg/dL (70-99) 132 mg/dL (70-99) Laboratory Tests Test 09/02/19 11:37 09/02/19 16:46 09/02/19 20:48 09/03/19 07:15 Glucose (Fingerstick) 251 mg/dL (70-99) 270 mg/dL (70-99) 227 mg/dL (70-99) 132 mg/dL (70-99) Microbiology 09/01/19 Blood Culture - Preliminary, Resulted NO GROWTH AFTER 1 DAY Medications Current Medications Iohexol (Omnipaque 350 Mg/ml) 75 ml 1X ONCE IV ; Start 08/31/19 at 22:00; Stop 08/31/19 at 22:01; Status DC Info (CONTRAST GIVEN -- Rx MONITORING) 1 each PRN DAILY PRN MC SEE COMMENTS; Start 08/31/19 at 21:30; Stop 09/02/19 at 21:29; Status DC Insulin Human Lispro (HumaLOG) 0-5 UNITS TIDWMEALS SQ Last administered on 09/02/19 17:40; Start 09/01/19 at 08:00 Dextrose (Dextrose 50%-Water Syringe) 12.5 gm PRN Q15MIN PRN IV SEE COMMENTS; Start 09/01/19 at 01:00 Amlodipine Besylate (Norvasc) 5 mg DAILY PO Last administered on 09/02/19 09:00; Start 09/01/19 at 14:00 Aspirin (Ecotrin) 81 mg DAILY PO Last administered on 09/02/19 09:00; Start 09/01/19 at 14:00 Atorvastatin Calcium (Lipitor) 20 mg HS PO Last administered on 09/02/19 20:34; Start 09/01/19 at 21:00 Calcium/Vitamin D (Oscal D 500mg/ 200uts) 1 tab DAILY PO Last administered on 09/02/19 09:00; Start 09/01/19 at 14:00 Vitamin D (Vitamin D3) 1,000 unit DAILY PO Last administered on 09/02/19 09:00; Start 09/01/19 at 14:00 Gabapentin (Neurontin) 100 mg TID PO Last administered on 09/02/19 20:34; Start 09/01/19 at 14:00 Glipizide (Glucotrol) 5 mg DAILYWBKFT PO Last administered on 09/02/19 08:00; Start 09/02/19 at 08:00 Acetaminophen/ Hydrocodone Bitart (Lortab 7.5/325) 1 tab PRN Q6HRS PRN PO MODERATE PAIN Last administered on 09/01/19 14:29; Start 09/01/19 at 13:15 Hydrocortisone (Cortef) 10 mg DAILY PO ; Start 09/01/19 at 14:00; Status Cancel Levothyroxine Sodium (Synthroid) 125 mcg DAILYAC PO Last administered on 09/03/19 07:49; Start 09/02/19 at 07:30 Metoprolol Succinate (Toprol Xl) 25 mg DAILY PO Last administered on 09/02/19 09:00; Start 09/01/19 at 14:00 Oxycodone/ Acetaminophen (Percocet 10/325) 1 tab PRN Q6HRS PRN PO SEVERE PAIN; Start 09/01/19 at 13:15 Sertraline HCl (Zoloft) 50 mg DAILY PO Last administered on 09/02/19at 09:00; Start 09/01/19 at 14:00 Non-Formulary Medication (Budesonide/ Formoterol Fumarate (Symbicort 160-4.5 Mcg Inhaler)) 2 puff BID IH ; Start 09/01/19 at 21:00; Status UNV Non-Formulary Medication (Difluprednate (Durezol)) 5 ml BID OP ; Start 09/01/19 at 21:00; Status UNV Metformin HCl (Glucophage) 1,000 mg BIDWMEALS PO ; Start 09/03/19 at 08:00 Pantoprazole Sodium (Protonix) 40 mg DAILYAC PO Last administered on 09/03/19at 07:49; Start 09/02/19 at 07:30 Lisinopril (Prinivil) 20 mg DAILY PO Last administered on 09/02/19at 09:00; Start 09/01/19 at 14:00 Non-Formulary Medication (Tobramycin/ Dexamethasone (Tobradex Eye Ointment)) 1 gary BID OS ; Start 09/01/19 at 21:00; Status UNV Budesonide (Pulmicort) 0.5 mg RTBID NEB Last administered on 09/03/19at 08:04; Start 09/01/19 at 20:00 Albuterol Sulfate (Ventolin Neb Soln) 2.5 mg RTQID NEB ; Start 09/01/19 at 16:00; Status Cancel Enoxaparin Sodium (Lovenox Per Pharmacy Treatment Dosing) 1 each PRN DAILY PRN MC SEE COMMENTS; Start 09/01/19 at 13:30 Sodium Chloride (Normal Saline Flush) 3 ml QSHIFT PRN IV AFTER MEDS AND BLOOD DRAWS; Start 09/01/19 at 13:30 Ondansetron HCl (Zofran) 4 mg PRN Q4HRS PRN IV NAUSEA/VOMITING; Start 09/01/19 at 13:30 Acetaminophen (Tylenol) 650 mg PRN Q4HRS PRN PO TEMP OVER 100.4F OR MILD PAIN; Start 09/01/19 at 13:30 Clonidine HCl (Catapres) 0.1 mg PRN Q6HRS PRN PO SBP>160 OR DBP>90; Start 09/01/19 at 13:30 Docusate Sodium (Colace) 100 mg PRN BID PRN PO HARD STOOLS; Start 09/01/19 at 13:30 Albuterol/ Ipratropium (Duoneb) 3 ml Q4HRS NEB Last administered on 09/03/19at 08:03; Start 09/01/19 at 16:00 Guaifenesin (Robitussin) 200 mg PRN Q4HRS PRN PO COUGH; Start 09/01/19 at 13:30 Enoxaparin Sodium (Lovenox 120mg Syringe) 110 mg Q12HR SQ Last administered on 09/02/19at 20:35; Start 09/01/19 at 14:00 Hydrocortisone (Cortef) 20 mg BID PO ; Start 09/01/19 at 21:00; Status Cancel Hydrocortisone (Cortef) 10 mg 1X ONCE PO Last administered on 09/01/19at 15:04; Start 09/01/19 at 14:45; Stop 09/01/19 at 14:46; Status DC Hydrocortisone (Cortef) 10 mg HS PO Last administered on 09/02/19at 20:34; Start 09/01/19 at 21:00 Hydrocortisone (Cortef) 20 mg DAILYWBKFT PO Last administered on 09/02/19at 08:00; Start 09/02/19 at 08:00 Calcium Carbonate/ Glycine (Tums) 500 mg PRN AFTMEALHC PRN PO INDIGESTION Last administered on 09/02/19at 22:25; Start 09/02/19 at 22:15 Active Scripts Active Reported Cortef (Hydrocortisone) 20 Mg Tablet 20 Mg PO DAILY08 Cortef (Hydrocortisone) 10 Mg Tablet 10 Mg PO HS Calcium 500 + Vit D 200 Tablet (Calcium Carbonate/Vitamin D3) 1 Each Tablet 1 Each PO DAILY Vitamin D3 (Cholecalciferol (Vitamin D3)) 1,000 Unit Tablet 1,000 Unit PO DAILY Aspirin Ec (Aspirin) 81 Mg Tablet.dr 81 Mg PO DAILY Glipizide 5 Mg Tablet 5 Mg PO DAILY Atorvastatin Calcium 20 Mg Tablet 20 Mg PO HS Durezol (Difluprednate) 5 Ml Drops 5 Ml OP BID Tobradex Eye Ointment (Tobramycin/Dexamethasone) 3.5 Gm Oint...g. 1 Gary OS BID Protonix (Pantoprazole Sodium) 20 Mg Tablet.dr 40 Mg PO DAILY Symbicort 160-4.5 Mcg Inhaler (Budesonide/Formoterol Fumarate) 10.2 Gm Hfa.aer .ad 2 Puff IH BID Percocet 10-325 Mg Tablet (Oxycodone/Acetaminophen) 1 Each Tablet 1 Tab PO PRN Q6HRS PRN Zoloft (Sertraline Hcl) 50 Mg Tablet 50 Mg PO DAILY Metformin Hcl 1,000 Mg Tablet 1,000 Mg PO BIDWMEALS Neurontin (Gabapentin) 100 Mg Capsule 100 Mg PO TID Synthroid (Levothyroxine Sodium) 125 Mcg Tablet 125 Mcg PO DAILYAC Metoprolol Succinate ( Xl ) (Metoprolol Succinate) 25 Mg Tab.er.24h 25 Mg PO DAILY Hydrocodone-Apap 7.5-325 (Hydrocodone Bit/Acetaminophen) 1 Tab Tablet 1 Tab PO PRN Q6HRS PRN Amlodipine Besylate 5 Mg Tablet 5 Mg PO DAILY Ramipril 10 Mg Capsule 1 Cap PO DAILY Vitals/I & O Vital Sign - Last 24 Hours 09/02/19 09/02/19 09/02/19 09/02/19 09:00 09:00 09:00 11:00 Temp 98.4 98.4 Pulse 76 76 76 79 Resp 16 B/P (MAP) 142/74 142/74 142/74 121/60 (80) Pulse Ox 94 O2 Delivery Nasal Cannula O2 Flow Rate 2.0 09/02/19 09/02/19 09/02/19 09/02/19 12:02 15:02 15:53 19:36 Temp 98.5 98.5 98.5 98.5 Pulse 90 88 Resp 16 20 B/P (MAP) 125/51 (75) 110/40 (63) Pulse Ox 94 97 O2 Delivery Room Air Nasal Cannula Room Air Nasal Cannula O2 Flow Rate 2.0 2.0 09/02/19 09/02/19 09/02/19 09/02/19 20:00 20:15 22:07 23:42 Temp 98.9 98.9 Pulse 99 Resp 16 20 B/P (MAP) 112/56 (74) 133/64 (87) Pulse Ox 97 96 94 O2 Delivery Room Air Room Air Room Air Room Air O2 Flow Rate 2.0 09/03/19 09/03/19 09/03/19 09/03/19 03:00 07:45 08:06 08:07 Temp 98.0 98.0 Pulse 77 72 B/P (MAP) 133/65 (87) Pulse Ox 95 96 96 O2 Delivery Room Air Room Air Room Air Room Air Intake and Output 09/02/19 09/02/19 09/03/19 15:00 23:00 07:00 Intake Total 850 ml 400 ml 800 ml Output Total 600 ml 800 ml 450 ml Balance 250 ml -400 ml 350 ml ELIZABETH MAZARIEGOS MD Sep 03, 2019 08:27
[2019-09-03] MEDS: CALCIUM CARB/VIT D3 500/200 TABLET. PO SCH (09:00)
[2019-09-03] MEDS: LISINOPRIL 20 MG TABLET PO SCH (09:02)
[2019-09-03] MEDS: GABAPENTIN 100 MG CAPSULE. PO SCH ×3 (09:02→20:54)
[2019-09-03] MEDS: ASPIRIN ENTERIC COATED 81 MG TABLET.DR. PO SCH (09:03)
[2019-09-03] MEDS: amLODIPine BESYLATE 5 MG TABLET PO SCH (09:03)
[2019-09-03] MEDS: CHOLECALCIFEROL (VITAMIN D3) 1,000 UNIT TABLET PO SCH (09:03)
[2019-09-03] MEDS: CALCIUM CARBONATE 500 MG TAB.CHEW PO PRN (09:05)
[2019-09-03] MEDS: HYDROCORTISONE 10 MG TABLET PO SCH ×2 (09:05→20:54)
[2019-09-03] MEDS: glipiZIDE 5 MG TABLET PO SCH (09:05)
[2019-09-03] MEDS: SERTRALINE 50 MG TABLET. PO SCH (09:05)
--- NOTE | 2019-09-03 10:21 | NUR ---
STEVEN consulted for SNU eval. Chart reviewed and discussed with RN, Rehab Physician. Pt lives at [facility], PT/OT recommends SNU. STEVEN spoke with pt about SNU, options, medicare ratings and insurance coverage. Pt reported he has been to MAR multiple times. SW extensively discussed SNU VS Rehab and PT/OT recommendation for SNU. Pt chose [facility]. Pt had concerns as he has not been able to get his Testosterone shot for the last 4 months. Pt reports his [facility] insurance had stopped the coverage stating pt does not meet criteria for the shot. Pt stated he had already tried to address this with his PCP but so far insurance has not approved tx. Pt reports he has been getting the shot since 1984 and needs it every three weeks. SW explored pt can attempt to reach out to his insurance CM and get this addressed and also may be explore if this can be covered under his primary insurance. Pt had discussed this with hospitalist here to see if he can get the shot prior to going to [facility]. Pt reported he will inform his family regarding dc plan. Plan 1. STEVEN phoned and faxed referral to [facility], Phone: [phone], fax: [phone]. Pt acceptance and admission pending. 2. Supportive counseling, 3. Will continue to follow. Anticipate pt will dc to later today or tomorrow.
[2019-09-03] MEDS ORDERED: IOHEXOL 350 MG/ML 100 ML VIAL. IV ONE (10:30)
[2019-09-03] MEDS ORDERED: CONTRAST GIVEN. MC PRN (10:30)
--- NOTE | 2019-09-03 11:00 | PDOC ---
PULMONARY PROGRESS NOTES Subjective no soa, on RA Vitals Vital Signs Date Time Temp Pulse Resp B/P (MAP) Pulse Ox O2 Delivery O2 Flow Rate FiO2 09/03/19 09:03 72 133/65 09/03/19 08:07 96 Room Air 09/03/19 07:45 98.0 98.0 09/02/19 23:42 20 09/02/19 20:00 2.0 General: Alert, No acute distress Lungs: Clear Cardiovascular: S1 Abdomen: Soft, Other (obese) Neuro Exam: Alert Extremities: Other (1+edema) Labs Laboratory Tests Test 09/01/19 11:27 09/01/19 14:05 09/01/19 16:20 09/01/19 16:53 Glucose (Fingerstick) 200 mg/dL (70-99) 188 mg/dL (70-99) Free Thyroxine 0.49 ng/dL (0.76-1.46) O2 Saturation 95 % (92-99) Arterial Blood pH 7.42 (7.35-7.45) Arterial Blood pCO2 at Patient Temp 38 mmHg (35-46) Arterial Blood pO2 at Patient Temp 77 mmHg (65-108) Arterial Blood HCO3 24 mmol/L (21-28) Arterial Blood Base Excess 0 mmol/L (-3-3) Oxyhemoglobin 94.4 % Methemoglobin 0.3 % (0.0-1.9) Carbon Monoxide, Quantitative 0.6 % (0.0-1.9) FiO2 21 Test 09/01/19 20:39 09/02/19 03:25 09/02/19 07:10 09/02/19 11:37 Glucose (Fingerstick) 296 mg/dL (70-99) 158 mg/dL (70-99) 251 mg/dL (70-99) White Blood Count 5.5 x10^3/uL (4.0-11.0) Red Blood Count 4.47 x10^6/uL (4.30-5.70) Hemoglobin 14.6 g/dL (13.0-17.5) Hematocrit 42.3 % (39.0-53.0) Mean Corpuscular Volume 95 fL (79-100) Mean Corpuscular Hemoglobin 33 pg (25-35) Mean Corpuscular Hemoglobin Concent 35 g/dL (31-37) Red Cell Distribution Width 14.2 % (11.5-14.5) Platelet Count 176 x10^3/uL (140-400) Neutrophils (%) (Auto) 59 % (31-73) Lymphocytes (%) (Auto) 25 % (24-48) Monocytes (%) (Auto) 13 % (0-9) Eosinophils (%) (Auto) 3 % (0-3) Basophils (%) (Auto) 1 % (0-3) Neutrophils # (Auto) 3.3 x10^3/uL (1.8-7.7) Lymphocytes # (Auto) 1.4 x10^3/uL (1.0-4.8) Monocytes # (Auto) 0.7 x10^3/uL (0.0-1.1) Eosinophils # (Auto) 0.1 x10^3/uL (0.0-0.7) Basophils # (Auto) 0.0 x10^3/uL (0.0-0.2) Sodium Level 138 mmol/L (136-145) Potassium Level 4.2 mmol/L (3.5-5.1) Chloride Level 101 mmol/L (98-107) Carbon Dioxide Level 29 mmol/L (21-32) Anion Gap 8 (6-14) Blood Urea Nitrogen 13 mg/dL (8-26) Creatinine 1.2 mg/dL (0.7-1.3) Estimated GFR (Cockcroft-Gault) 59.0 BUN/Creatinine Ratio 11 (6-20) Glucose Level 250 mg/dL (70-99) Calcium Level 9.4 mg/dL (8.5-10.1) Total Bilirubin 0.5 mg/dL (0.2-1.0) Aspartate Amino Transf (AST/SGOT) 45 U/L (15-37) Alanine Aminotransferase (ALT/SGPT) 71 U/L (16-63) Alkaline Phosphatase 85 U/L (46-116) Total Protein 6.9 g/dL (6.4-8.2) Albumin 3.3 g/dL (3.4-5.0) Albumin/Globulin Ratio 0.9 (1.0-1.7) Triglycerides Level 382 mg/dL (0-150) Cholesterol Level 152 mg/dL (0-200) LDL Cholesterol, Calculated 60 mg/dL (0-100) VLDL Cholesterol, Calculated 76 mg/dL (0-40) Non-HDL Cholesterol Calculated 136 mg/dL (0-129) HDL Cholesterol 16 mg/dL (40-60) Cholesterol/HDL Ratio 9.5 Vitamin B12 Level 370 pg/mL (247-911) Free Triiodothyronine (T3) pg/mL 2.23 pg/mL (2.18-3.98) Test 09/02/19 16:46 09/02/19 20:48 09/03/19 07:15 Glucose (Fingerstick) 270 mg/dL (70-99) 227 mg/dL (70-99) 132 mg/dL (70-99) Laboratory Tests Test 09/02/19 11:37 09/02/19 16:46 09/02/19 20:48 09/03/19 07:15 Glucose (Fingerstick) 251 mg/dL (70-99) 270 mg/dL (70-99) 227 mg/dL (70-99) 132 mg/dL (70-99) Medications Active Scripts Medications Dose Route/Sig Max Daily Dose Days Date Category Cortef (Hydrocortisone) 20 Mg Tablet 20 Mg PO DAILY08 09/01/19 Reported Cortef (Hydrocortisone) 10 Mg Tablet 10 Mg PO HS 09/01/19 Reported Calcium 500 + Vit D 200 Tablet (Calcium Carbonate/Vitamin D3) 1 Each Tablet 1 Each PO DAILY 09/01/19 Reported Vitamin D3 (Cholecalciferol (Vitamin D3)) 1,000 Unit Tablet 1,000 Unit PO DAILY 09/01/19 Reported Aspirin Ec (Aspirin) 81 Mg Tablet.dr 81 Mg PO DAILY 09/01/19 Reported Glipizide 5 Mg Tablet 5 Mg PO DAILY 09/01/19 Reported Atorvastatin Calcium 20 Mg Tablet 20 Mg PO HS 09/01/19 Reported Durezol (Difluprednate) 5 Ml Drops 5 Ml OP BID 09/01/19 Reported Tobradex Eye Ointment (Tobramycin/Dexamethasone) 3.5 Gm Oint...g. 1 Gary OS BID 09/01/19 Reported Protonix (Pantoprazole Sodium) 20 Mg Tablet.dr 40 Mg PO DAILY 09/01/19 Reported Symbicort 160-4.5 Mcg Inhaler (Budesonide/Formoterol Fumarate) 10.2 Gm Hfa.aer.ad 2 Puff IH BID 09/01/19 Reported Percocet 10-325 Mg Tablet (Oxycodone/Acetaminophen) 1 Each Tablet 1 Tab PO PRN Q6HRS PRN 09/01/19 Reported Zoloft (Sertraline Hcl) 50 Mg Tablet 50 Mg PO DAILY 09/01/19 Reported Metformin Hcl 1,000 Mg Tablet 1,000 Mg PO BIDWMEALS 09/01/19 Reported Neurontin (Gabapentin) 100 Mg Capsule 100 Mg PO TID 09/01/19 Reported Synthroid (Levothyroxine Sodium) 125 Mcg Tablet 125 Mcg PO DAILYAC 09/01/19 Reported Metoprolol Succinate ( Xl ) (Metoprolol Succinate) 25 Mg Tab.er.24h 25 Mg PO DAILY 09/01/19 Reported Hydrocodone-Apap 7.5-325 (Hydrocodone Bit/Acetaminophen) 1 Tab Tablet 1 Tab PO PRN Q6HRS PRN 09/01/19 Reported Amlodipine Besylate 5 Mg Tablet 5 Mg PO DAILY 09/01/19 Reported Ramipril 10 Mg Capsule 1 Cap PO DAILY 09/01/19 Reported Impression . 1. Dyspnea with no significant hypoxia. He attributes dyspnea to weakness and anxiety as he has not received his testosterone injections in the last 4 months. The V/Q scan is intermediate probability. I suspected they are mostly matched defects from his chronic obstructive pulmonary disease. Clinical suspicion for thromboembolic disease is low. His Dopplers were negative as well. However, I will do a CTA chest to be absolutely sure. He is on testosterone which does place him at risk for thromboembolic disease. 2. No evidence of deep venous thrombosis. 3. Underlying chronic obstructive pulmonary disease, which is clinically compensated. 4. History of obstructive sleep apnea with claustrophobia to CPAP mask. He uses oxygen at nighttime. 5. Morbid obesity with possible cor pulmonale. Plan . 1. Continue with full-dose Lovenox for now. 2. Ordered CTA chest today 3. DuoNebs. 4. Hydrocortisone chronically. 5. Continue bronchodilators. 6. Further recommendations to follow after review of the CTA chest. Discussed with CIRILO. VANESSA GAMBOA MD Sep 03, 2019 11:00
[2019-09-03 11:48] VITALS: BP 128/62
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
[2019-09-03] MEDS: METOPROLOL SUCC 24HR ER 25 MG TAB.ER.24H. PO SCH (13:40)
--- NOTE | 2019-09-03 14:05 | RAD ---
Examination: CT ANGIOGRAPHY CHEST History: Shortness of breath Comparison/Correlation: None Findings: Axial images of chest were obtained following IV contrast pulmonary arteriography protocol. Sagittal and coronal reformatted images were provided. Maximum intensity projection images were provided. Adequate opacification of the pulmonary arterial vasculature is noted. No pulmonary arterial thromboembolic disease. No pleural or pericardial effusion. No enlarged thoracic lymph nodes. No infiltrates or atelectasis. No pneumothorax. Mosaic attenuation of the lung dyer is noted. Tracheobronchial tree is unremarkable. Incidental note is made of significant calcification of the proximal left anterior descending coronary artery and the right coronary artery. Diffuse fatty infiltration of liver is present. Bony structures are unremarkable. Thoracic aorta is unremarkable. Impression: No pulmonary arterial thromboembolic disease. No infiltrate. Mosaic attenuation lung dyer which may represent small airways disease. Fatty infiltration of the liver. PQRS Compliance Statement: One or more of the following individualized dose reduction techniques were utilized for this examination: 1. Automated exposure control 2. Adjustment of the mA and/or kV according to patient size 3. Use of iterative reconstruction technique Electronically signed by: Reuben Knight MD (09/03/2019 2:02 PM) [facility]
--- NOTE | 2019-09-03 14:55 | NUR ---
STEVEN following pt. Pt has been accepted at and facility will have a bed available upon dc. Pt is notified he will need to bring eye drops, ointment and inhalers from home. Discussed with RN.
[2019-09-03 15:06] VITALS: BP 126/48
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
--- NOTE | 2019-09-03 16:45 | NUR ---
Gave report to Daylin KERR on [facility]. Patient is transferring, belongings packed, patient ready to go.
[2019-09-03 19:00] VITALS: BP 112/58
[2019-09-03] MEDS: ATORVASTATIN CALCIUM 20 MG TABLET PO SCH (20:54)
[2019-09-03 23:00] VITALS: BP 117/58
--- NOTE | 2019-09-03 23:55 | CONS ---
DATE OF CONSULTATION: 09/03/2019 ATTENDING PHYSICIAN: Pawel Allen MD The patient was seen at the request of Dr. Allen for rehab evaluation. HISTORY OF PRESENT ILLNESS: This is a 74-year-old right-handed male with known chronic obstructive pulmonary disease, diabetes mellitus type 2, admitted through the Emergency Room with generalized weakness and increased shortness of breath, especially with exertion going on for about 4 days prior to the hospitalization. He was admitted on 09/01/2019. The patient feels weak as he missed his testosterone shot in 4 months. Usually, he has been getting it since 1980s, but insurance company recently stopped covering for it. Dr. Overton at [facility] is his family physician. The patient had past medical history of myocardial infarction, status post stenting, cornea transplant and cataract and decreased acuity of vision in one eye. He lives in a high-rise apartment, has no stairs for him to manage and he had a walker; he uses it sometimes. He used to walk for about a mile before his weakness started. The patient had since admission radiological studies, which failed to reveal any acute abnormality except CT scan of cervical spine revealed multilevel degenerative disk disease with mild degree of central spinal stenosis and fairly severe narrowing of left C6-C7 neural foramen. The patient denies any neck pain or any radiation of the neck pain to the extremities or any tingling or numbness sensation in the extremities. He denies any trouble with his bowel or bladder control or any balance problems. He states sometimes his knees feel like giving up while he is up walking, but denies any knee pain or lower back pain. The patient, on physical examination today revealed an elderly male. He is alert, oriented to time, place, person and circumstance and follows commands appropriately. Moves all 4 extremities voluntarily where he had 4/5 to 4+/5 grade muscle strength and deep tendon reflexes are 1-2+ and symmetrical, maybe slightly exaggerated at left knee and left ankle. He had equal perception of touch and pinprick sensation bilaterally. No tenderness to palpation over cervical, thoracic or lumbar spine and he had painful range of motion of his cervical and lumbar spine. Straight leg raising test is negative bilaterally. Mildly crepitus on range of motion of his knee joint without any obvious knee joint effusion. He had painful range of motion of both hip joints. He is independent with bed mobility and transfers. Once up, he can walk using a roller walker at bedside for short distance before he gets short of breath and gets tired. His skin is intact at this time. ASSESSMENT: An elderly male with deconditioned state. He thinks it is from lack of his testosterone, which he has been getting as supplement for several years. Also, with known previous myocardial infarction, decreased acuity of vision in one eye, degenerative joint disease of both knees without much pain, degenerative disk disease and degenerative joint disease of cervical vertebrae without any neck pain or clinical evidence of cervical radiculopathy or obvious signs and symptoms of cervical spinal stenosis with balance problems. The patient with known coronary artery disease, hypertension, hyperlipidemia, asthmatic bronchitis, chronic obstructive pulmonary disease, blindness in left eye, gastroesophageal reflux disease, depression, diabetes mellitus and hypothyroidism. RECOMMENDATIONS: Agreed with the plan for physical therapy and occupational therapy and transfer to halfway care unit when medically stable. Dr. Allen, I appreciate asking me to participate in the care of this interesting patient. I will be glad to follow him with you on an as-needed basis during his hospitalization. DUSTY CENTENO MD DR: BOOM/evonne JOB#: [id number] / [id number]
[2019-09-04 03:00] VITALS: BP 130/69
[2019-09-04] MEDS: IPRATRPIUM/ALBUTEROL 0.5/2.5MG 3 ML NEBU. NEB SCH ×6 (04:00→20:00)
[2019-09-04 07:00] VITALS: BP 149/70
[2019-09-04] MEDS: BUDESONIDE 0.5 MG/2 ML NEBU. NEB SCH ×2 (07:31→20:00)
[2019-09-04] MEDS: INSULIN LISPRO 300 UNITS/3 ML VIAL. SQ SCH ×3 (08:00→17:10)
[2019-09-04] MEDS: ASPIRIN ENTERIC COATED 81 MG TABLET.DR. PO SCH (08:22)
[2019-09-04] MEDS: HYDROCORTISONE 10 MG TABLET PO SCH ×2 (08:22→21:05)
[2019-09-04] MEDS: glipiZIDE 5 MG TABLET PO SCH (08:22)
[2019-09-04] MEDS: CALCIUM CARB/VIT D3 500/200 TABLET. PO SCH (08:22)
[2019-09-04] MEDS: GABAPENTIN 100 MG CAPSULE. PO SCH ×3 (08:23→21:05)
[2019-09-04] MEDS: amLODIPine BESYLATE 5 MG TABLET PO SCH (08:23)
[2019-09-04] MEDS: SERTRALINE 50 MG TABLET. PO SCH (08:23)
[2019-09-04] MEDS: METOPROLOL SUCC 24HR ER 25 MG TAB.ER.24H. PO SCH (08:23)
[2019-09-04] MEDS: LEVOTHYROXINE 125 MCG TABLET PO SCH (08:23)
[2019-09-04] MEDS: PANTOPRAZOLE 40 MG TABLET.DR. PO SCH (08:24)
[2019-09-04] MEDS: CHOLECALCIFEROL (VITAMIN D3) 1,000 UNIT TABLET PO SCH (08:24)
[2019-09-04] MEDS: LISINOPRIL 20 MG TABLET PO SCH (08:24)
--- NOTE | 2019-09-04 08:47 | PDOC ---
PULMONARY PROGRESS NOTES Subjective no soa, on RA Vitals Vital Signs Date Time Temp Pulse Resp B/P (MAP) Pulse Ox O2 Delivery O2 Flow Rate FiO2 09/04/19 08:24 66 149/70 09/04/19 07:31 95 Room Air 09/04/19 07:00 97.8 18 97.8 General: Alert, No acute distress Lungs: Clear Cardiovascular: S1 Abdomen: Soft, Other (obese) Neuro Exam: Alert Extremities: Other (1+edema) Labs Laboratory Tests Test 09/02/19 11:37 09/02/19 16:46 09/02/19 20:48 09/03/19 07:15 Glucose (Fingerstick) 251 mg/dL (70-99) 270 mg/dL (70-99) 227 mg/dL (70-99) 132 mg/dL (70-99) Test 09/03/19 12:10 09/03/19 16:46 09/03/19 21:19 09/04/19 07:44 Glucose (Fingerstick) 132 mg/dL (70-99) 148 mg/dL (70-99) 178 mg/dL (70-99) 114 mg/dL (70-99) Laboratory Tests Test 09/03/19 12:10 09/03/19 16:46 09/03/19 21:19 09/04/19 07:44 Glucose (Fingerstick) 132 mg/dL (70-99) 148 mg/dL (70-99) 178 mg/dL (70-99) 114 mg/dL (70-99) Medications Active Scripts Medications Dose Route/Sig Max Daily Dose Days Date Category Cortef (Hydrocortisone) 20 Mg Tablet 20 Mg PO DAILY08 09/01/19 Reported Cortef (Hydrocortisone) 10 Mg Tablet 10 Mg PO HS 09/01/19 Reported Calcium 500 + Vit D 200 Tablet (Calcium Carbonate/Vitamin D3) 1 Each Tablet 1 Each PO DAILY 09/01/19 Reported Vitamin D3 (Cholecalciferol (Vitamin D3)) 1,000 Unit Tablet 1,000 Unit PO DAILY 09/01/19 Reported Aspirin Ec (Aspirin) 81 Mg Tablet.dr 81 Mg PO DAILY 09/01/19 Reported Glipizide 5 Mg Tablet 5 Mg PO DAILY 09/01/19 Reported Atorvastatin Calcium 20 Mg Tablet 20 Mg PO HS 09/01/19 Reported Durezol (Difluprednate) 5 Ml Drops 5 Ml OP BID 09/01/19 Reported Tobradex Eye Ointment (Tobramycin/Dexamethasone) 3.5 Gm Oint...g. 1 Gary OS BID 09/01/19 Reported Protonix (Pantoprazole Sodium) 20 Mg Tablet.dr 40 Mg PO DAILY 09/01/19 Reported Symbicort 160-4.5 Mcg Inhaler (Budesonide/Formoterol Fumarate) 10.2 Gm Hfa.aer.ad 2 Puff IH BID 09/01/19 Reported Percocet 10-325 Mg Tablet (Oxycodone/Acetaminophen) 1 Each Tablet 1 Tab PO PRN Q6HRS PRN 09/01/19 Reported Zoloft (Sertraline Hcl) 50 Mg Tablet 50 Mg PO DAILY 09/01/19 Reported Metformin Hcl 1,000 Mg Tablet 1,000 Mg PO BIDWMEALS 09/01/19 Reported Neurontin (Gabapentin) 100 Mg Capsule 100 Mg PO TID 09/01/19 Reported Synthroid (Levothyroxine Sodium) 125 Mcg Tablet 125 Mcg PO DAILYAC 09/01/19 Reported Metoprolol Succinate ( Xl ) (Metoprolol Succinate) 25 Mg Tab.er.24h 25 Mg PO DAILY 09/01/19 Reported Hydrocodone-Apap 7.5-325 (Hydrocodone Bit/Acetaminophen) 1 Tab Tablet 1 Tab PO PRN Q6HRS PRN 09/01/19 Reported Amlodipine Besylate 5 Mg Tablet 5 Mg PO DAILY 09/01/19 Reported Ramipril 10 Mg Capsule 1 Cap PO DAILY 09/01/19 Reported Impression . 1. Dyspnea with no significant hypoxia. He attributes dyspnea to weakness and anxiety as he has not received his testosterone injections in the last 4 months. The V/Q scan is intermediate probability. I suspected they are mostly matched defects from his chronic obstructive pulmonary disease. Clinical suspicion for thromboembolic disease is low. His Dopplers were negative as well. CTA chest REVIEWED/ NO PE 2. No evidence of deep venous thrombosis. 3. Underlying chronic obstructive pulmonary disease, which is clinically compensated. 4. History of obstructive sleep apnea with claustrophobia to CPAP mask. He uses oxygen at nighttime. 5. Morbid obesity with possible cor pulmonale. Plan . 1. OFF Lovenox 2. CTA chest with no PE 3. DuoNebs. 4. Hydrocortisone chronically. 5. Continue bronchodilators. 6. ok with dc to VANESSA Aleman MD Sep 04, 2019 08:47
--- NOTE | 2019-09-04 10:46 | PDOC ---
PROGRESS NOTES History of Present Illness History of Present Illness VTE Prophylaxis Ordered VTE Prophylaxis Devices: Yes VTE Pharmacological Prophylaxi: Yes discharge dx Assessment/Plan Impression: generalized weakness COPD HX dyspnea 09/01 on echo left ventricular systolic function is normal. Ejection Fraction is 60%.normal LV segmental wall motion. Mild aortic regurgitation. Trace mitral regurgitation. Trace tricuspid regurgitation. PA pressure was estimated at 34 mmHg. The Ejection Fraction is 60%. There is normal LV segmental wall motion. Mild aortic regurgitation. Generalized weakness on ct 09/02 multilevel degenerative disc disease greatest at C6-7, to a lesser degree at C4-5, C5-6, C7-T1. There is multilevel spondylosis. There is likely mild spinal stenosis about 8 mm at C3-4 and to a lesser degree at C4-5. Uncovertebral degenerative change results in fairly severe narrowing of the left C6-7 neural foramen. There is also multilevel facet degenerative change. There is a lesser degree of [id number] narrowing of the right C5-6 neural foramen, minimal narrowing on the left at C5-6 and C4-5 and bilaterally at C3-C4. Shortness of breath WITH HIGH D-DIMER Intermediate probability for pulmonary embolism. ON V/Q SCAN POA CRI MORBID OBESITY HX REMOTE TOBACCO ABUSE HYPERLIPIDEMIA ADMITTED 02 support PRN CONSIDER CTA R/O PE ECHO CARDIOLOGY CONSULT PULM CONSULT RASTA QID TSH IS LOW, CHK FREE T4 SQ LOVENOX ONE MG/KG BID UNTIL PULM SEES CTA CHEST 09/03 neg for PE consult dr CENTENO Will consider for outpt MPI pending PE workup still feeling very weak 09/03 REPEAT FREE T4 TODAY plan for physical therapy and occupational therapy and transfer to detention care unit 33 d/c planning MIN PT EXAM, CHART REVIEW, > 50% OF TIME SPENT WITH EXAM, CHART REVIEW, PT CARE COORDINATION Vitals Vitals Vital Signs Date Time Temp Pulse Resp B/P (MAP) Pulse Ox O2 Delivery O2 Flow Rate FiO2 09/04/19 08:24 66 149/70 09/04/19 08:00 Room Air 09/04/19 07:31 95 09/04/19 07:00 97.8 18 97.8 Physical Exam General: Alert, Oriented X3, Cooperative, No acute distress Heart: Regular rate, Normal S1, Normal S2 Lungs: Clear Abdomen: Normal bowel sounds, Soft, Other (obese ) Extremities: No cyanosis, No edema, Normal pulses Skin: No significant lesion Labs LABS Laboratory Tests Test 09/03/19 12:10 09/03/19 16:46 09/03/19 21:19 09/04/19 07:44 Glucose (Fingerstick) 132 mg/dL (70-99) 148 mg/dL (70-99) 178 mg/dL (70-99) 114 mg/dL (70-99) Assessment and Plan Assessmemt and Plan Problems Medical Problems: (1) Shortness of breath Status: Acute Mobility devices used prior to admission * Four Wheeled Walker Other Information - PLOF Mobility * Hasn't used 4WW in the past year Other Prior Level of Function Information * Pt reported moving to [facility] last January. The apt is set up for safety with WIS, grab bars, shower chair and HHS. Pt has a standard toilet but reports presence of grab bar to facilitate safe transfer. Pt has a 4WW in his apt however had not needed to use it. He was "active and tried to walk a mile a day in stages however hasn't been able to do this over the past months and has had an accelated onset of generalized weakness and SOA isues over the past month. Weight Bearing Status * Full Weight Bearing Level of Consciousness * Alert Oriented to: * Person * Place * Time * Situation Follows Direction * Complex Behavior * Cooperative Safety/Judgement * Decreased Safety * Due to Medical Status * Due to Strength/ROM Defic Tone * Normal Tone Location * Left Lower Extremity * Right Lower Extremity Activity Tolerance * Fair - Activity Tolerance/ Vitals * Sitting, after activity Spo2: 96% HR: 110 Pt reports feeling short of breath with activity. Sitting Balance * 5 moves >2" all planes Standing Balance * 2 balances w/ both UEs Pain Score * 0 Pain Scale Type * Numeric Transfer Assistance Required * Contact Guard Assist Transfer Type * Sit to Stand Transfer Assistive Device * Roller Walker Transfer Comments * x2 sit to stand total. CGA due to weakness in LE and fatigue with shower and OT. Ambulation Comments * deferred today due to fatigue Sitting Exercises * Long Arc Quads * Marching Sitting Exercises Comments * x15 each, pt able to recall exercises from yesterday Standing Exercises * Marching Standing Exercise Comments * 2 sets of 15 with sitting rest break Learning Preferences * One-on-One Instruction * Demonstration Factors Facilitating Goal Achievement * Motivation level * Prior level of function * Cognition * Available resources Problem List (body system elements) * Impaired fnctnl mobility * Strength * Balance Pt/caregiver agrees with plan of care/goals * Yes Patient condition at conclusion of therapy * Pt in chair * Call light in reach * Phone in reach * PtIn no apparent distress * Pt denies further needs Goal 2 - Transfers Assistance Required * Independent Goal 2 - Transfer Type * Sit to Stand Goal 2 Assessment * Appropriate - Continue Goal 3 - Ambulation Assistance Required * Independent Goal 3 - Ambulation Distance * 100' Goal 3 - Ambulation Device * Four Wheeled Walker Goal 3 Assessment * Appropriate - Continue Treatment Plan * Therapeutic Exercise * Transfer training * Gait Training * Dynamic Balance Training Frequency of Treatment Expected * 7 visits/week Duration of Treatment Expected * 2 weeks Discharge Recommendations * Alf Unit Discharge Recommendation - DME * None Discharge Recommendation Comments * Pt wants to go to SNU to build up strength. Comment Review of Relevant I have reviewed the following items lena (where applicable) has been applied. Labs Laboratory Tests Test 09/02/19 11:37 09/02/19 16:46 09/02/19 20:48 09/03/19 07:15 Glucose (Fingerstick) 251 mg/dL (70-99) 270 mg/dL (70-99) 227 mg/dL (70-99) 132 mg/dL (70-99) Test 09/03/19 12:10 09/03/19 16:46 09/03/19 21:19 09/04/19 07:44 Glucose (Fingerstick) 132 mg/dL (70-99) 148 mg/dL (70-99) 178 mg/dL (70-99) 114 mg/dL (70-99) Laboratory Tests Test 09/03/19 12:10 09/03/19 16:46 09/03/19 21:19 09/04/19 07:44 Glucose (Fingerstick) 132 mg/dL (70-99) 148 mg/dL (70-99) 178 mg/dL (70-99) 114 mg/dL (70-99) Microbiology 09/01/19 Blood Culture - Preliminary, Resulted NO GROWTH AFTER 2 DAYS Medications Current Medications Iohexol (Omnipaque 350 Mg/ml) 75 ml 1X ONCE IV Last administered on 08/31/19at 11:00; Start 08/31/19 at 22:00; Stop 08/31/19 at 22:01; Status DC Info (CONTRAST GIVEN -- Rx MONITORING) 1 each PRN DAILY PRN MC SEE COMMENTS; Start 08/31/19 at 21:30; Stop 09/02/19 at 21:29; Status DC Insulin Human Lispro (HumaLOG) 0-5 UNITS TIDWMEALS SQ Last administered on 09/02/19 17:40; Start 09/01/19 at 08:00 Dextrose (Dextrose 50%-Water Syringe) 12.5 gm PRN Q15MIN PRN IV SEE COMMENTS; Start 09/01/19 at 01:00 Amlodipine Besylate (Norvasc) 5 mg DAILY PO Last administered on 09/04/19 08:23; Start 09/01/19 at 14:00 Aspirin (Ecotrin) 81 mg DAILY PO Last administered on 09/04/19 08:22; Start 09/01/19 at 14:00 Atorvastatin Calcium (Lipitor) 20 mg HS PO Last administered on 09/02/19 20:34; Start 09/01/19 at 21:00; Stop 09/03/19 at 11:51; Status DC Calcium/Vitamin D (Oscal D 500mg/ 200uts) 1 tab DAILY PO Last administered on 09/04/19 08:22; Start 09/01/19 at 14:00 Vitamin D (Vitamin D3) 1,000 unit DAILY PO Last administered on 09/04/19 08:24; Start 09/01/19 at 14:00 Gabapentin (Neurontin) 100 mg TID PO Last administered on 09/04/19 08:23; Start 09/01/19 at 14:00 Glipizide (Glucotrol) 5 mg DAILYWBKFT PO Last administered on 09/04/19 08:22; Start 09/02/19 at 08:00 Acetaminophen/ Hydrocodone Bitart (Lortab 7.5/325) 1 tab PRN Q6HRS PRN PO MODERATE PAIN Last administered on 09/01/19 14:29; Start 09/01/19 at 13:15 Hydrocortisone (Cortef) 10 mg DAILY PO ; Start 09/01/19 at 14:00; Status Cancel Levothyroxine Sodium (Synthroid) 125 mcg DAILYAC PO Last administered on 09/04/19 08:23; Start 09/02/19 at 07:30 Metoprolol Succinate (Toprol Xl) 25 mg DAILY PO Last administered on 09/04/19 08:23; Start 09/01/19 at 14:00 Oxycodone/ Acetaminophen (Percocet 10/325) 1 tab PRN Q6HRS PRN PO SEVERE PAIN; Start 09/01/19 at 13:15 Sertraline HCl (Zoloft) 50 mg DAILY PO Last administered on 09/04/19 08:23; Start 09/01/19 at 14:00 Non-Formulary Medication (Budesonide/ Formoterol Fumarate (Symbicort 160-4.5 Mcg Inhaler)) 2 puff BID IH ; Start 09/01/19 at 21:00; Status UNV Non-Formulary Medication (Difluprednate (Durezol)) 5 ml BID OP ; Start 09/01/19 at 21:00; Status UNV Metformin HCl (Glucophage) 1,000 mg BIDWMEALS PO Last administered on 09/03/19 09:06; Start 09/03/19 at 08:00; Stop 09/03/19 at 10:28; Status DC Pantoprazole Sodium (Protonix) 40 mg DAILYAC PO Last administered on 09/04/19 08:24; Start 09/02/19 at 07:30 Lisinopril (Prinivil) 20 mg DAILY PO Last administered on 09/04/19 08:24; Start 09/01/19 at 14:00 Non-Formulary Medication (Tobramycin/ Dexamethasone (Tobradex Eye Ointment)) 1 gary BID OS ; Start 09/01/19 at 21:00; Status UNV Budesonide (Pulmicort) 0.5 mg RTBID NEB Last administered on 09/04/19at 07:31; Start 09/01/19 at 20:00 Albuterol Sulfate (Ventolin Neb Soln) 2.5 mg RTQID NEB ; Start 09/01/19 at 16:00; Status Cancel Enoxaparin Sodium (Lovenox Per Pharmacy Treatment Dosing) 1 each PRN DAILY PRN MC SEE COMMENTS; Start 09/01/19 at 13:30; Stop 09/03/19 at 14:14; Status DC Sodium Chloride (Normal Saline Flush) 3 ml QSHIFT PRN IV AFTER MEDS AND BLOOD DRAWS; Start 09/01/19 at 13:30 Ondansetron HCl (Zofran) 4 mg PRN Q4HRS PRN IV NAUSEA/VOMITING; Start 09/01/19 at 13:30 Acetaminophen (Tylenol) 650 mg PRN Q4HRS PRN PO TEMP OVER 100.4F OR MILD PAIN; Start 09/01/19 at 13:30 Clonidine HCl (Catapres) 0.1 mg PRN Q6HRS PRN PO SBP>160 OR DBP>90; Start 09/01/19 at 13:30 Docusate Sodium (Colace) 100 mg PRN BID PRN PO HARD STOOLS; Start 09/01/19 at 13:30 Albuterol/ Ipratropium (Duoneb) 3 ml Q4HRS NEB Last administered on 09/04/19at 07:31; Start 09/01/19 at 16:00 Guaifenesin (Robitussin) 200 mg PRN Q4HRS PRN PO COUGH; Start 09/01/19 at 13:30 Enoxaparin Sodium (Lovenox 120mg Syringe) 110 mg Q12HR SQ Last administered on 09/03/19 09:09; Start 09/01/19 at 14:00; Stop 09/03/19 at 14:16; Status DC Hydrocortisone (Cortef) 20 mg BID PO ; Start 09/01/19 at 21:00; Status Cancel Hydrocortisone (Cortef) 10 mg 1X ONCE PO Last administered on 09/01/19at 15:04; Start 09/01/19 at 14:45; Stop 09/01/19 at 14:46; Status DC Hydrocortisone (Cortef) 10 mg HS PO Last administered on 09/03/19at 20:54; Start 09/01/19 at 21:00 Hydrocortisone (Cortef) 20 mg DAILYWBKFT PO Last administered on 09/04/19at 08:22; Start 09/02/19 at 08:00 Calcium Carbonate/ Glycine (Tums) 500 mg PRN AFTMEALHC PRN PO INDIGESTION Last administered on 09/03/19at 09:05; Start 09/02/19 at 22:15 Iohexol (Omnipaque 350 Mg/ml) 100 ml 1X ONCE IV ; Start 09/03/19 at 10:30; Stop 09/03/19 at 10:31; Status DC Info (CONTRAST GIVEN -- Rx MONITORING) 1 each PRN DAILY PRN MC SEE COMMENTS; Start 09/03/19 at 10:30; Stop 09/05/19 at 10:29 Metformin HCl (Glucophage) 1,000 mg BIDWMEALS PO ; Start 09/06/19 at 08:00 Atorvastatin Calcium (Lipitor) 40 mg HS PO Last administered on 09/03/19at 20:54; Start 09/03/19 at 21:00 Active Scripts Active Reported Cortef (Hydrocortisone) 20 Mg Tablet 20 Mg PO DAILY08 Cortef (Hydrocortisone) 10 Mg Tablet 10 Mg PO HS Calcium 500 + Vit D 200 Tablet (Calcium Carbonate/Vitamin D3) 1 Each Tablet 1 Each PO DAILY Vitamin D3 (Cholecalciferol (Vitamin D3)) 1,000 Unit Tablet 1,000 Unit PO DAILY Aspirin Ec (Aspirin) 81 Mg Tablet.dr 81 Mg PO DAILY Glipizide 5 Mg Tablet 5 Mg PO DAILY Atorvastatin Calcium 20 Mg Tablet 20 Mg PO HS Durezol (Difluprednate) 5 Ml Drops 5 Ml OP BID Tobradex Eye Ointment (Tobramycin/Dexamethasone) 3.5 Gm Oint...g. 1 Gary OS BID Protonix (Pantoprazole Sodium) 20 Mg Tablet.dr 40 Mg PO DAILY Symbicort 160-4.5 Mcg Inhaler (Budesonide/Formoterol Fumarate) 10.2 Gm Hfa.aer.ad 2 Puff IH BID Percocet 10-325 Mg Tablet (Oxycodone/Acetaminophen) 1 Each Tablet 1 Tab PO PRN Q6HRS PRN Zoloft (Sertraline Hcl) 50 Mg Tablet 50 Mg PO DAILY Metformin Hcl 1,000 Mg Tablet 1,000 Mg PO BIDWMEALS Neurontin (Gabapentin) 100 Mg Capsule 100 Mg PO TID Synthroid (Levothyroxine Sodium) 125 Mcg Tablet 125 Mcg PO DAILYAC Metoprolol Succinate ( Xl ) (Metoprolol Succinate) 25 Mg Tab.er.24h 25 Mg PO DAILY Hydrocodone-Apap 7.5-325 (Hydrocodone Bit/Acetaminophen) 1 Tab Tablet 1 Tab PO PRN Q6HRS PRN Amlodipine Besylate 5 Mg Tablet 5 Mg PO DAILY Ramipril 10 Mg Capsule 1 Cap PO DAILY Vitals/I & O Vital Sign - Last 24 Hours 09/03/19 09/03/19 09/03/19 09/03/19 11:48 11:59 13:40 15:06 Temp 98.5 98.2 98.5 98.2 Pulse 74 74 102 B/P (MAP) 128/62 (84) 128/62 126/48 (74) Pulse Ox 99 94 O2 Delivery Room Air Room Air Room Air 09/03/19 09/03/19 09/03/19 09/03/19 16:38 19:00 20:00 20:07 Temp 98.8 98.8 Pulse 85 Resp 18 B/P (MAP) 112/58 (76) Pulse Ox 94 O2 Delivery Room Air Room Air Room Air 09/03/19 09/04/19 09/04/19 09/04/19 23:00 03:00 07:00 07:31 Temp 98.9 98.1 97.8 98.9 98.1 97.8 Pulse 76 75 66 Resp 18 16 18 B/P (MAP) 117/58 (77) 130/69 (89) 149/70 (96) Pulse Ox 98 98 98 95 O2 Delivery Room Air Room Air 09/04/19 09/04/19 09/04/19 09/04/19 08:00 08:23 08:23 08:24 Pulse 66 66 66 B/P (MAP) 149/70 149/70 149/70 O2 Delivery Room Air Intake and Output 09/03/19 09/03/19 09/04/19 15:00 23:00 07:00 Intake Total 120 ml Output Total 375 ml 1000 ml Balance -375 ml -880 ml ELIZABETH MAZARIEGOS MD Sep 04, 2019 10:46
--- NOTE | 2019-09-04 10:58 | PDOC ---
PROGRESS NOTES Subjective Subjective No new complaints. Objective Objective Vital Signs Date Time Temp Pulse Resp B/P (MAP) Pulse Ox O2 Delivery O2 Flow Rate FiO2 09/04/19 08:24 66 149/70 09/04/19 08:00 Room Air 09/04/19 07:31 95 09/04/19 07:00 97.8 18 97.8 09/02/19 20:00 2.0 Intake and Output 09/04/19 07:00 Intake Total 120 ml Output Total 1375 ml Balance -1255 ml Intake Oral 120 ml Output Urine Total 1375 ml # Voids 1 Physical Exam Physical Exam He is supine in bed but apparently walked to bath room with roller walker. He co ntinues with generalized weakness and low physical endurance. Assessment Assessment Problems Medical Problems: (1) Shortness of breath Status: Acute Plan Plan of Care To SNF when medically stable. Comment Review of Relevant I have reviewed the following items lena (where applicable) has been applied. Labs Laboratory Tests Test 09/02/19 11:37 09/02/19 16:46 09/02/19 20:48 09/03/19 07:15 Glucose (Fingerstick) 251 mg/dL (70-99) 270 mg/dL (70-99) 227 mg/dL (70-99) 132 mg/dL (70-99) Test 09/03/19 12:10 09/03/19 16:46 09/03/19 21:19 09/04/19 07:44 Glucose (Fingerstick) 132 mg/dL (70-99) 148 mg/dL (70-99) 178 mg/dL (70-99) 114 mg/dL (70-99) Laboratory Tests Test 09/03/19 12:10 09/03/19 16:46 09/03/19 21:19 09/04/19 07:44 Glucose (Fingerstick) 132 mg/dL (70-99) 148 mg/dL (70-99) 178 mg/dL (70-99) 114 mg/dL (70-99) Microbiology 09/01/19 Blood Culture - Preliminary, Resulted NO GROWTH AFTER 2 DAYS Medications Current Medications Iohexol (Omnipaque 350 Mg/ml) 75 ml 1X ONCE IV Last administered on 08/31/19at 11:00; Start 08/31/19 at 22:00; Stop 08/31/19 at 22:01; Status DC Info (CONTRAST GIVEN -- Rx MONITORING) 1 each PRN DAILY PRN MC SEE COMMENTS; Start 08/31/19 at 21:30; Stop 09/02/19 at 21:29; Status DC Insulin Human Lispro (HumaLOG) 0-5 UNITS TIDWMEALS SQ Last administered on 09/02/19at 17:40; Start 09/01/19 at 08:00 Dextrose (Dextrose 50%-Water Syringe) 12.5 gm PRN Q15MIN PRN IV SEE COMMENTS; Start 09/01/19 at 01:00 Amlodipine Besylate (Norvasc) 5 mg DAILY PO Last administered on 09/04/19 08:23; Start 09/01/19 at 14:00 Aspirin (Ecotrin) 81 mg DAILY PO Last administered on 09/04/19 08:22; Start 09/01/19 at 14:00 Atorvastatin Calcium (Lipitor) 20 mg HS PO Last administered on 09/02/19 20:34; Start 09/01/19 at 21:00; Stop 09/03/19 at 11:51; Status DC Calcium/Vitamin D (Oscal D 500mg/ 200uts) 1 tab DAILY PO Last administered on 09/04/19 08:22; Start 09/01/19 at 14:00 Vitamin D (Vitamin D3) 1,000 unit DAILY PO Last administered on 09/04/19 08:24; Start 09/01/19 at 14:00 Gabapentin (Neurontin) 100 mg TID PO Last administered on 09/04/19 08:23; Start 09/01/19 at 14:00 Glipizide (Glucotrol) 5 mg DAILYWBKFT PO Last administered on 09/04/19 08:22; Start 09/02/19 at 08:00 Acetaminophen/ Hydrocodone Bitart (Lortab 7.5/325) 1 tab PRN Q6HRS PRN PO MODERATE PAIN Last administered on 09/01/19 14:29; Start 09/01/19 at 13:15 Hydrocortisone (Cortef) 10 mg DAILY PO ; Start 09/01/19 at 14:00; Status Cancel Levothyroxine Sodium (Synthroid) 125 mcg DAILYAC PO Last administered on 09/04/19 08:23; Start 09/02/19 at 07:30 Metoprolol Succinate (Toprol Xl) 25 mg DAILY PO Last administered on 09/04/19at 08:23; Start 09/01/19 at 14:00 Oxycodone/ Acetaminophen (Percocet 10/325) 1 tab PRN Q6HRS PRN PO SEVERE PAIN; Start 09/01/19 at 13:15 Sertraline HCl (Zoloft) 50 mg DAILY PO Last administered on 09/04/19at 08:23; Start 09/01/19 at 14:00 Non-Formulary Medication (Budesonide/ Formoterol Fumarate (Symbicort 160-4.5 Mcg Inhaler)) 2 puff BID IH ; Start 09/01/19 at 21:00; Status UNV Non-Formulary Medication (Difluprednate (Durezol)) 5 ml BID OP ; Start 09/01/19 at 21:00; Status UNV Metformin HCl (Glucophage) 1,000 mg BIDWMEALS PO Last administered on 09/03/19at 09:06; Start 09/03/19 at 08:00; Stop 09/03/19 at 10:28; Status DC Pantoprazole Sodium (Protonix) 40 mg DAILYAC PO Last administered on 09/04/19at 08:24; Start 09/02/19 at 07:30 Lisinopril (Prinivil) 20 mg DAILY PO Last administered on 09/04/19at 08:24; S tart 09/01/19 at 14:00 Non-Formulary Medication (Tobramycin/ Dexamethasone (Tobradex Eye Ointment)) 1 gary BID OS ; Start 09/01/19 at 21:00; Status UNV Budesonide (Pulmicort) 0.5 mg RTBID NEB Last administered on 09/04/19at 07:31; Start 09/01/19 at 20:00 Albuterol Sulfate (Ventolin Neb Soln) 2.5 mg RTQID NEB ; Start 09/01/19 at 16:00; Status Cancel Enoxaparin Sodium (Lovenox Per Pharmacy Treatment Dosing) 1 each PRN DAILY PRN MC SEE COMMENTS; Start 09/01/19 at 13:30; Stop 09/03/19 at 14:14; Status DC Sodium Chloride (Normal Saline Flush) 3 ml QSHIFT PRN IV AFTER MEDS AND BLOOD DRAWS; Start 09/01/19 at 13:30 Ondansetron HCl (Zofran) 4 mg PRN Q4HRS PRN IV NAUSEA/VOMITING; Start 09/01/19 at 13:30 Acetaminophen (Tylenol) 650 mg PRN Q4HRS PRN PO TEMP OVER 100.4F OR MILD PAIN; Start 09/01/19 at 13:30 Clonidine HCl (Catapres) 0.1 mg PRN Q6HRS PRN PO SBP>160 OR DBP>90; Start 09/01/19 at 13:30 Docusate Sodium (Colace) 100 mg PRN BID PRN PO HARD STOOLS; Start 09/01/19 at 13:30 Albuterol/ Ipratropium (Duoneb) 3 ml Q4HRS NEB Last administered on 09/04/19at 07:31; Start 09/01/19 at 16:00 Guaifenesin (Robitussin) 200 mg PRN Q4HRS PRN PO COUGH; Start 09/01/19 at 13:30 Enoxaparin Sodium (Lovenox 120mg Syringe) 110 mg Q12HR SQ Last administered on 09/03/19at 09:09; Start 09/01/19 at 14:00; Stop 09/03/19 at 14:16; Status DC Hydrocortisone (Cortef) 20 mg BID PO ; Start 09/01/19 at 21:00; Status Cancel Hydrocortisone (Cortef) 10 mg 1X ONCE PO Last administered on 09/01/19at 15:04; Start 09/01/19 at 14:45; Stop 09/01/19 at 14:46; Status DC Hydrocortisone (Cortef) 10 mg HS PO Last administered on 09/03/19at 20:54; Start 09/01/19 at 21:00 Hydrocortisone (Cortef) 20 mg DAILYWBKFT PO Last administered on 09/04/19at 08:22; Start 09/02/19 at 08:00 Calcium Carbonate/ Glycine (Tums) 500 mg PRN AFTMEALHC PRN PO INDIGESTION Last administered on 09/03/19at 09:05; Start 09/02/19 at 22:15 Iohexol (Omnipaque 350 Mg/ml) 100 ml 1X ONCE IV ; Start 09/03/19 at 10:30; Stop 09/03/19 at 10:31; Status DC Info (CONTRAST GIVEN -- Rx MONITORING) 1 each PRN DAILY PRN MC SEE COMMENTS; Start 09/03/19 at 10:30; Stop 09/05/19 at 10:29 Metformin HCl (Glucophage) 1,000 mg BIDWMEALS PO ; Start 09/06/19 at 08:00 Atorvastatin Calcium (Lipitor) 40 mg HS PO Last administered on 09/03/19at 20:54; Start 09/03/19 at 21:00 Active Scripts Active Reported Cortef (Hydrocortisone) 20 Mg Tablet 20 Mg PO DAILY08 Cortef (Hydrocortisone) 10 Mg Tablet 10 Mg PO HS Calcium 500 + Vit D 200 Tablet (Calcium Carbonate/Vitamin D3) 1 Each Tablet 1 Each PO DAILY Vitamin D3 (Cholecalciferol (Vitamin D3)) 1,000 Unit Tablet 1,000 Unit PO DAILY Aspirin Ec (Aspirin) 81 Mg Tablet.dr 81 Mg PO DAILY Glipizide 5 Mg Tablet 5 Mg PO DAILY Atorvastatin Calcium 20 Mg Tablet 20 Mg PO HS Durezol (Difluprednate) 5 Ml Drops 5 Ml OP BID Tobradex Eye Ointment (Tobramycin/Dexamethasone) 3.5 Gm Oint...g. 1 Gary OS BID Protonix (Pantoprazole Sodium) 20 Mg Tablet.dr 40 Mg PO DAILY Symbicort 160-4.5 Mcg Inhaler (Budesonide/Formoterol Fumarate) 10.2 Gm Hfa.aer.ad 2 Puff IH BID Percocet 10-325 Mg Tablet (Oxycodone/Acetaminophen) 1 Each Tablet 1 Tab PO PRN Q6HRS PRN Zoloft (Sertraline Hcl) 50 Mg Tablet 50 Mg PO DAILY Metformin Hcl 1,000 Mg Tablet 1,000 Mg PO BIDWMEALS Neurontin (Gabapentin) 100 Mg Capsule 100 Mg PO TID Synthroid (Levothyroxine Sodium) 125 Mcg Tablet 125 Mcg PO DAILYAC Metoprolol Succinate ( Xl ) (Metoprolol Succinate) 25 Mg Tab.er.24h 25 Mg PO DAILY Hydrocodone-Apap 7.5-325 (Hydrocodone Bit/Acetaminophen) 1 Tab Tablet 1 Tab PO PRN Q6HRS PRN Amlodipine Besylate 5 Mg Tablet 5 Mg PO DAILY Ramipril 10 Mg Capsule 1 Cap PO DAILY Vitals/I & O Vital Sign - Last 24 Hours 10/4/19 10/4/19 10/4/19 10/4/19 11:48 11:59 13:40 15:06 Temp 98.5 98.2 98.5 98.2 Pulse 74 74 102 B/P (MAP) 128/62 (84) 128/62 126/48 (74) Pulse Ox 99 94 O2 Delivery Room Air Room Air Room Air 09/03/19 09/03/19 09/03/19 09/03/19 16:38 19:00 20:00 20:07 Temp 98.8 98.8 Pulse 85 Resp 18 B/P (MAP) 112/58 (76) Pulse Ox 94 O2 Delivery Room Air Room Air Room Air 09/03/19 09/04/19 09/04/19 09/04/19 23:00 03:00 07:00 07:31 Temp 98.9 98.1 97.8 98.9 98.1 97.8 Pulse 76 75 66 Resp 18 16 18 B/P (MAP) 117/58 (77) 130/69 (89) 149/70 (96) Pulse Ox 98 98 98 95 O2 Delivery Room Air Room Air 09/04/19 09/04/19 09/04/19 09/04/19 08:00 08:23 08:23 08:24 Pulse 66 66 66 B/P (MAP) 149/70 149/70 149/70 O2 Delivery Room Air Intake and Output 09/03/19 09/03/19 09/04/19 15:00 23:00 07:00 Intake Total 120 ml Output Total 375 ml 1000 ml Balance -375 ml -880 ml DUSTY CENTENO MD Sep 04, 2019 10:58
[2019-09-04 11:00] VITALS: BP 125/57
--- NOTE | 2019-09-04 11:59 | PDOC3 ---
Discharge Summary Date of Admission: Sep 01, 2019 Date of Discharge: Sep 04, 2019 Follow-Up: 1-2 days Admitting Diagnosis comment: discharge dx Assessment/Plan Impression: generalized weakness COPD HX dyspnea 09/01 on echo left ventricular systolic function is normal. Ejection Fraction is 60%.normal LV segmental wall motion. Mild aortic regurgitation. Trace mitral regurgitation. Trace tricuspid regurgitation. PA pressure was estimated at 34 mmHg. The Ejection Fraction is 60%. There is normal LV segmental wall motion. Mild aortic regurgitation. Generalized weakness on ct 09/02 multilevel degenerative disc disease greatest at C6-7, to a lesser degree at C4-5, C5-6, C7-T1. There is multilevel spondylosis. There is likely mild spinal stenosis about 8 mm at C3-4 and to a lesser degree at C4-5. Uncovertebral degenerative change results in fairly severe narrowing of the left C6-7 neural foramen. There is also multilevel facet deg enerative change. There is a lesser degree of lhsq-pw-whjeilce narrowing of the right C5-6 neural foramen, minimal narrowing on the left at C5-6 and C4-5 and bilaterally at C3-C4. Shortness of breath WITH HIGH D-DIMER Intermediate probability for pulmonary embolism. ON V/Q SCAN POA CRI MORBID OBESITY HX REMOTE TOBACCO ABUSE HYPERLIPIDEMIA ADMITTED 02 support PRN CONSIDER CTA R/O PE ECHO CARDIOLOGY CONSULT PULM CONSULT RASTA QID TSH IS LOW, CHK FREE T4 SQ LOVENOX ONE MG/KG BID UNTIL PULM SEES CTA CHEST 09/03 neg for PE consult dr CENTENO Will consider for outpt MPI pending PE workup still feeling very weak 09/03 REPEAT FREE T4 TODAY plan for physical therapy and occupational therapy and transfer to intermediate care unit 33 d/c planning MIN PT EXAM, CHART REVIEW, > 50% OF TIME SPENT WITH EXAM, CHART REVIEW, PT CARE COORDINATION Vitals Vitals Vital Signs Date Time Temp Pulse Resp B/P (MAP) Pulse Ox O2 Delivery O2 Flow Rate FiO2 09/04/19 08:24 66 149/70 09/04/19 08:00 Room Air 09/04/19 07:31 95 09/04/19 07:00 97.8 18 97.8 Physical Exam General: Alert, Oriented X3, Cooperative, No acute distress Heart: Regular rate, Normal S1, Normal S2 Lungs: Clear Abdomen: Normal bowel sounds, Soft, Other (obese ) Extremities: No cyanosis, No edema, Normal pulses Skin: No significant lesion FINAL DIAGNOSIS Problems Medical Problems: (1) Shortness of breath Status: Acute Brief Hospital Course Mr. Vela is a 74 old [sex] who presented with [ weakness] CONDITION AT DISCHARGE: Improved Discharge Medications Current Medications Iohexol (Omnipaque 350 Mg/ml) 75 ml 1X ONCE IV Last administered on 08/31/19at 11:00; Start 08/31/19 at 22:00; Stop 08/31/19 at 22:01; Status DC Info (CONTRAST GIVEN -- Rx MONITORING) 1 each PRN DAILY PRN MC SEE COMMENTS; Start 08/31/19 at 21:30; Stop 09/02/19 at 21:29; Status DC Insulin Human Lispro (HumaLOG) 0-5 UNITS TIDWMEALS SQ Last administered on 09/02/19 17:40; Start 09/01/19 at 08:00 Dextrose (Dextrose 50%-Water Syringe) 12.5 gm PRN Q15MIN PRN IV SEE COMMENTS; Start 09/01/19 at 01:00 Amlodipine Besylate (Norvasc) 5 mg DAILY PO Last administered on 09/04/19 08:23; Start 09/01/19 at 14:00 Aspirin (Ecotrin) 81 mg DAILY PO Last administered on 09/04/19 08:22; Start 09/01/19 at 14:00 Atorvastatin Calcium (Lipitor) 20 mg HS PO Last administered on 09/02/19 20:34; Start 09/01/19 at 21:00; Stop 09/03/19 at 11:51; Status DC Calcium/Vitamin D (Oscal D 500mg/ 200uts) 1 tab DAILY PO Last administered on 09/04/19 08:22; Start 09/01/19 at 14:00 Vitamin D (Vitamin D3) 1,000 unit DAILY PO Last administered on 09/04/19 08:24; Start 09/01/19 at 14:00 Gabapentin (Neurontin) 100 mg TID PO Last administered on 09/04/19 08:23; Start 09/01/19 at 14:00 Glipizide (Glucotrol) 5 mg DAILYWBKFT PO Last administered on 09/04/19 08:22; Start 09/02/19 at 08:00 Acetaminophen/ Hydrocodone Bitart (Lortab 7.5/325) 1 tab PRN Q6HRS PRN PO MODERATE PAIN Last administered on 09/01/19at 14:29; Start 09/01/19 at 13:15 Hydrocortisone (Cortef) 10 mg DAILY PO ; Start 09/01/19 at 14:00; Status Cancel Levothyroxine Sodium (Synthroid) 125 mcg DAILYAC PO Last administered on 09/04/19 08:23; Start 09/02/19 at 07:30 Metoprolol Succinate (Toprol Xl) 25 mg DAILY PO Last administered on 09/04/19 08:23; Start 09/01/19 at 14:00 Oxycodone/ Acetaminophen (Percocet 10/325) 1 tab PRN Q6HRS PRN PO SEVERE PAIN; Start 09/01/19 at 13:15 Sertraline HCl (Zoloft) 50 mg DAILY PO Last administered on 09/04/19 08:23; Start 09/01/19 at 14:00 Non-Formulary Medication (Budesonide/ Formoterol Fumarate (Symbicort 160-4.5 Mcg Inhaler)) 2 puff BID IH ; Start 09/01/19 at 21:00; Status UNV Non-Formulary Medication (Difluprednate (Durezol)) 5 ml BID OP ; Start 09/01/19 at 21:00; Status UNV Metformin HCl (Glucophage) 1,000 mg BIDWMEALS PO Last administered on 09/03/19 09:06; Start 09/03/19 at 08:00; Stop 09/03/19 at 10:28; Status DC Pantoprazole Sodium (Protonix) 40 mg DAILYAC PO Last administered on 09/04/19 08:24; Start 09/02/19 at 07:30 Lisinopril (Prinivil) 20 mg DAILY PO Last administered on 09/04/19 08:24; Start 09/01/19 at 14:00 Non-Formulary Medication (Tobramycin/ Dexamethasone (Tobradex Eye Ointment)) 1 gary BID OS ; Start 09/01/19 at 21:00; Status UNV Budesonide (Pulmicort) 0.5 mg RTBID NEB Last administered on 10/5/19at 07:31; Start 09/01/19 at 20:00 Albuterol Sulfate (Ventolin Neb Soln) 2.5 mg RTQID NEB ; Start 09/01/19 at 16:00; Status Cancel Enoxaparin Sodium (Lovenox Per Pharmacy Treatment Dosing) 1 each PRN DAILY PRN MC SEE COMMENTS; Start 09/01/19 at 13:30; Stop 09/03/19 at 14:14; Status DC Sodium Chloride (Normal Saline Flush) 3 ml QSHIFT PRN IV AFTER MEDS AND BLOOD DRAWS; Start 09/01/19 at 13:30 Ondansetron HCl (Zofran) 4 mg PRN Q4HRS PRN IV NAUSEA/VOMITING; Start 09/01/19 at 13:30 Acetaminophen (Tylenol) 650 mg PRN Q4HRS PRN PO TEMP OVER 100.4F OR MILD PAIN; Start 09/01/19 at 13:30 Clonidine HCl (Catapres) 0.1 mg PRN Q6HRS PRN PO SBP>160 OR DBP>90; Start 09/01/19 at 13:30 Docusate Sodium (Colace) 100 mg PRN BID PRN PO HARD STOOLS; Start 09/01/19 at 13:30 Albuterol/ Ipratropium (Duoneb) 3 ml Q4HRS NEB Last administered on 09/04/19at 11:29; Start 09/01/19 at 16:00 Guaifenesin (Robitussin) 200 mg PRN Q4HRS PRN PO COUGH; Start 09/01/19 at 13:30 Enoxaparin Sodium (Lovenox 120mg Syringe) 110 mg Q12HR SQ Last administered on 09/03/19at 09:09; Start 09/01/19 at 14:00; Stop 09/03/19 at 14:16; Status DC Hydrocortisone (Cortef) 20 mg BID PO ; Start 09/01/19 at 21:00; Status Cancel Hydrocortisone (Cortef) 10 mg 1X ONCE PO Last administered on 09/01/19at 15:04; Start 09/01/19 at 14:45; Stop 09/01/19 at 14:46; Status DC Hydrocortisone (Cortef) 10 mg HS PO Last administered on 09/03/19at 20:54; Start 09/01/19 at 21:00 Hydrocortisone (Cortef) 20 mg DAILYWBKFT PO Last administered on 09/04/19at 08:22; Start 09/02/19 at 08:00 Calcium Carbonate/ Glycine (Tums) 500 mg PRN AFTMEALHC PRN PO INDIGESTION Last administered on 09/03/19at 09:05; Start 09/02/19 at 22:15 Iohexol (Omnipaque 350 Mg/ml) 100 ml 1X ONCE IV ; Start 09/03/19 at 10:30; Stop 09/03/19 at 10:31; Status DC Info (CONTRAST GIVEN -- Rx MONITORING) 1 each PRN DAILY PRN MC SEE COMMENTS; Start 09/03/19 at 10:30; Stop 09/05/19 at 10:29 Metformin HCl (Glucophage) 1,000 mg BIDWMEALS PO ; Start 09/06/19 at 08:00 Atorvastatin Calcium (Lipitor) 40 mg HS PO Last administered on 09/03/19at 20:54; Start 09/03/19 at 21:00 Active Scripts Active Reported Cortef (Hydrocortisone) 20 Mg Tablet 20 Mg PO DAILY08 Cortef (Hydrocortisone) 10 Mg Tablet 10 Mg PO HS Calcium 500 + Vit D 200 Tablet (Calcium Carbonate/Vitamin D3) 1 Each Tablet 1 Each PO DAILY Vitamin D3 (Cholecalciferol (Vitamin D3)) 1,000 Unit Tablet 1,000 Unit PO DAILY Aspirin Ec (Aspirin) 81 Mg Tablet.dr 81 Mg PO DAILY Glipizide 5 Mg Tablet 5 Mg PO DAILY Atorvastatin Calcium 20 Mg Tablet 20 Mg PO HS Durezol (Difluprednate) 5 Ml Drops 5 Ml OP BID Tobradex Eye Ointment (Tobramycin/Dexamethasone) 3.5 Gm Oint...g. 1 Gary OS BID Protonix (Pantoprazole Sodium) 20 Mg Tablet.dr 40 Mg PO DAILY Symbicort 160-4.5 Mcg Inhaler (Budesonide/Formoterol Fumarate) 10.2 Gm Hfa.aer.ad 2 Puff IH BID Percocet 10-325 Mg Tablet (Oxycodone/Acetaminophen) 1 Each Tablet 1 Tab PO PRN Q6HRS PRN Zoloft (Sertraline Hcl) 50 Mg Tablet 50 Mg PO DAILY Metformin Hcl 1,000 Mg Tablet 1,000 Mg PO BIDWMEALS Neurontin (Gabapentin) 100 Mg Capsule 100 Mg PO TID Synthroid (Levothyroxine Sodium) 125 Mcg Tablet 125 Mcg PO DAILYAC Metoprolol Succinate ( Xl ) (Metoprolol Succinate) 25 Mg Tab.er.24h 25 Mg PO DAILY Hydrocodone-Apap 7.5-325 (Hydrocodone Bit/Acetaminophen) 1 Tab Tablet 1 Tab PO PRN Q6HRS PRN Amlodipine Besylate 5 Mg Tablet 5 Mg PO DAILY Ramipril 10 Mg Capsule 1 Cap PO DAILY Vital Signs Vital Signs Date Time Temp Pulse Resp B/P (MAP) Pulse Ox O2 Delivery O2 Flow Rate FiO2 09/04/19 11:29 95 Room Air 09/04/19 11:00 98.0 70 18 125/57 (79) 98.0 Labs Laboratory Tests Test 09/02/19 16:46 09/02/19 20:48 09/03/19 07:15 09/03/19 12:10 Glucose (Fingerstick) 270 mg/dL (70-99) 227 mg/dL (70-99) 132 mg/dL (70-99) 132 mg/dL (70-99) Test 09/03/19 16:46 09/03/19 21:19 09/04/19 07:44 09/04/19 11:05 Glucose (Fingerstick) 148 mg/dL (70-99) 178 mg/dL (70-99) 114 mg/dL (70-99) 121 mg/dL (70-99) Laboratory Tests Test 09/03/19 12:10 09/03/19 16:46 09/03/19 21:19 09/04/19 07:44 Glucose (Fingerstick) 132 mg/dL (70-99) 148 mg/dL (70-99) 178 mg/dL (70-99) 114 mg/dL (70-99) Test 09/04/19 11:05 Glucose (Fingerstick) 121 mg/dL (70-99) Allergies Allergies Coded Allergies Type Severity Reaction Last Updated Verified Penicillins Allergy Intermediate 08/31/19 Yes Sulfa (Sulfonamide Antibiotics) Allergy Intermediate 08/31/19 Yes prednisone Allergy Intermediate 08/31/19 Yes Patient Instructions d/c planning 33 min ELIZABETH MAZARIEGOS MD Sep 04, 2019 11:58
[2019-09-04] MEDS ORDERED: ATOR20TA58 PO (12:04)
[2019-09-04] MEDS ORDERED: INSU100I11 SQ (12:04)
[2019-09-04] MEDS ORDERED: IPRA3AMP29 NEB (12:04)
[2019-09-04] MEDS ORDERED: DOCU-109 PO (12:04)
[2019-09-04] MEDS ORDERED: ACET325T9 PO (12:04)
--- NOTE | 2019-09-04 12:05 | SNU/HH DC ---
DISCHARGE ORDERS DISCHARGE INFORMATION: FINAL DIAGNOSIS Problems Medical Problems: (1) Shortness of breath Status: Acute CONDITION ON DISCHARGE: Stable CODE STATUS: Code Status: Full [facility] LIVING: SNF STAY <30 DAYS: Yes HOSPICE: HOSPICE: No HOSPICE EVAL & TREAT: No LTAC: ADMIT TO LTAC: No POST DISCHARGE ORDERS: ACTIVITY ORDERS: Activity as tolerated, Progressive ambulation DIET AFTER DISCHARGE: ADA CHECKS AFTER DISCHARGE: CHECKS AFTER DISCHARGE: Check blood press - daily TREATMENT/EQUIPMENT ORDERS: Physical Therapy For: Evalulation/Treatment Occupational Therapy For: Evaluation/Treatment DISCHARGE MEDICATIONS: Home Meds Active Scripts Insulin Lispro (HUMALOG) 100 Unit/1 Ml Insuln.pen, 0 UNITS SQ TIDWMEALS for see protocol for 10 Days, #1 EACH Prov:ELIZABETH MAZARIEGOS MD 09/04/19 Docusate Sodium (COLACE) 100 Mg Capsule, 100 MG PO PRN BID PRN for HARD STOOLS for 14 Days, #14 CAP Prov:ELIZABETH MAZARIEGOS MD 09/04/19 Acetaminophen (TYLENOL) 325 Mg Tablet, 650 MG PO PRN Q4HRS PRN for TEMP OVER 100.4F OR MILD PAIN for 14 Days, #30 TAB Prov:ELIZABETH MAZARIEGOS MD 09/04/19 Atorvastatin Calcium (ATORVASTATIN CALCIUM) 20 Mg Tablet, 40 MG PO HS for cholesterol for 30 Days, #60 TAB Prov:ELIZABETH MAZARIEGOS MD 09/04/19 Ipratropium/Albuterol Sulfate (DUONEB 0.5-3(2.5) MG/3 ML) 3 Ml Ampul.neb, 3 ML NEB Q4HRS for copd for 30 Days, #180 EACH Prov:ELIZABETH MAZARIEGOS MD 09/04/19 Reported Medications Hydrocortisone (CORTEF) 20 Mg Tablet, 20 MG PO DAILY08 for COPD, TAB 09/01/19 Hydrocortisone (CORTEF) 10 Mg Tablet, 10 MG PO HS for COPD, TAB 09/01/19 Calcium Carbonate/Vitamin D3 (CALCIUM 500 + VIT D 200 TABLET) 1 Each Tablet, 1 EACH PO DAILY for supplement, TAB 09/01/19 Cholecalciferol (Vitamin D3) (VITAMIN D3) 1,000 Unit Tablet, 1000 UNIT PO DAILY for Psoriasis, TAB 09/01/19 Aspirin (ASPIRIN EC) 81 Mg Tablet.dr, 81 MG PO DAILY for NV, TAB.SR 09/01/19 Glipizide (GLIPIZIDE) 5 Mg Tablet, 5 MG PO DAILY for DMII, TAB 09/01/19 Difluprednate (DUREZOL) 5 Ml Drops, 5 ML OP BID for cataracts OS, DROP 09/01/19 Tobramycin/Dexamethasone (TOBRADEX EYE OINTMENT) 3.5 Gm Oint...g., 1 [place] OS BID for cataracts, #3.5 GM 09/01/19 Pantoprazole Sodium (PROTONIX) 20 Mg Tablet.dr, 40 MG PO DAILY for GERD, TAB 09/01/19 Budesonide/Formoterol Fumarate (SYMBICORT 160-4.5 MCG INHALER) 10.2 Gm Hfa.aer.ad, 2 PUFF IH BID for wheezing, #10.6 GM 3 Refills 09/01/19 Sertraline Hcl (ZOLOFT) 50 Mg Tablet, 50 MG PO DAILY for ANTI-DEPRESSANT, TAB 0 Refills 09/01/19 Metformin Hcl (METFORMIN HCL) 1,000 Mg Tablet, 1000 MG PO BIDWMEALS for DMII, TAB 09/01/19 Gabapentin (NEURONTIN ) 100 Mg Capsule, 100 MG PO TID for NEUROGENIC PAIN, CAP 09/01/19 Levothyroxine Sodium (SYNTHROID) 125 Mcg Tablet, 125 MCG PO DAILYAC for THYROID SUPPLEMENT, #30 TAB 0 Refills 09/01/19 Metoprolol Succinate (METOPROLOL SUCCINATE ( XL )) 25 Mg Tab.er.24h, 25 MG PO DAILY for FOR HYPERTENSION, #30 TAB 0 Refills 09/01/19 Amlodipine Besylate (AMLODIPINE BESYLATE) 5 Mg Tablet, 5 MG PO DAILY for HTN, TAB 09/01/19 Ramipril (RAMIPRIL) 10 Mg Capsule, 1 CAP PO DAILY for HTN, #30 CAP 5 Refills 09/01/19 Discontinued Reported Medications Atorvastatin Calcium (ATORVASTATIN CALCIUM) 20 Mg Tablet, 20 MG PO HS for FOR CHOLESTEROL, #30 TAB 0 Refills 09/01/19 Oxycodone/Apap 10-325 (PERCOCET 10-325 MG TABLET ) 1 Each Tablet, 1 TAB PO PRN Q6HRS PRN for PAIN, TAB 0 Refills 09/01/19 Hydrocodone Bit/Acetaminophen (HYDROCODONE-APAP 7.5-325 ) 1 Tab Tablet, 1 TAB PO PRN Q6HRS PRN for PAIN, TAB 0 Refills 09/01/19 Hydrocortisone (CORTEF) 10 Mg Tablet, 10 MG PO DAILY for COPD, TAB 09/01/19 ELIZABETH MAZARIEGOS MD Sep 04, 2019 12:05
[2019-09-04 14:51] VITALS: BP 135/65
[2019-09-04 19:00] VITALS: BP 120/44
[2019-09-04] MEDS: ATORVASTATIN CALCIUM 20 MG TABLET PO SCH (21:05)
[2019-09-04 23:09] VITALS: BP 121/57
[2019-09-05 03:22] VITALS: BP 137/57
[2019-09-05] MEDS: IPRATRPIUM/ALBUTEROL 0.5/2.5MG 3 ML NEBU. NEB SCH ×6 (04:00→18:28)
[2019-09-05 07:00] VITALS: BP 154/69
[2019-09-05] MEDS: BUDESONIDE 0.5 MG/2 ML NEBU. NEB SCH ×2 (07:42→18:28)
[2019-09-05] MEDS: PANTOPRAZOLE 40 MG TABLET.DR. PO SCH (07:45)
[2019-09-05] MEDS: LEVOTHYROXINE 125 MCG TABLET PO SCH (07:45)
[2019-09-05] MEDS: INSULIN LISPRO 300 UNITS/3 ML VIAL. SQ SCH ×3 (08:00→17:00)
[2019-09-05] MEDS: HYDROCORTISONE 10 MG TABLET PO SCH ×2 (08:03→20:53)
[2019-09-05] MEDS: GABAPENTIN 100 MG CAPSULE. PO SCH ×3 (08:03→20:53)
[2019-09-05] MEDS: CALCIUM CARB/VIT D3 500/200 TABLET. PO SCH (08:03)
[2019-09-05] MEDS: ASPIRIN ENTERIC COATED 81 MG TABLET.DR. PO SCH (08:03)
[2019-09-05] MEDS: CHOLECALCIFEROL (VITAMIN D3) 1,000 UNIT TABLET PO SCH (08:03)
[2019-09-05] MEDS: METOPROLOL SUCC 24HR ER 25 MG TAB.ER.24H. PO SCH (08:04)
[2019-09-05] MEDS: LISINOPRIL 20 MG TABLET PO SCH (08:04)
[2019-09-05] MEDS: SERTRALINE 50 MG TABLET. PO SCH (08:05)
[2019-09-05] MEDS: amLODIPine BESYLATE 5 MG TABLET PO SCH (08:05)
[2019-09-05] MEDS: glipiZIDE 5 MG TABLET PO SCH (08:05)
--- NOTE | 2019-09-05 08:58 | PDOC ---
PROGRESS NOTES History of Present Illness History of Present Illness VTE Prophylaxis Ordered VTE Prophylaxis Devices: Yes VTE Pharmacological Prophylaxi: Yes discharge dx Assessment/Plan Impression: generalized weakness COPD HX dyspnea 09/01 on echo left ventricular systolic function is normal. Ejection Fraction is 60%.normal LV segmental wall motion. Mild aortic regurgitation. Trace mitral regurgitation. Trace tricuspid regurgitation. PA pressure was estimated at 34 mmHg. The Ejection Fraction is 60%. There is normal LV segmental wall motion. Mild aortic regurgitation. Generalized weakness on ct 09/02 multilevel degenerative disc disease greatest at C6-7, to a lesser degree at C4-5, C5-6, C7-T1. There is multilevel spondylosis. There is likely mild spinal stenosis about 8 mm at C3-4 and to a lesser degree at C4-5. Uncovertebral degenerative change results in fairly severe narrowing of the left C6-7 neural foramen. There is also multilevel facet degenerative change. There is a lesser degree of [id number] narrowing of the right C5-6 neural foramen, minimal narrowing on the left at C5-6 and C4-5 and bilaterally at C3-C4. Shortness of breath WITH HIGH D-DIMER Intermediate probability for pulmonary embolism. ON V/Q SCAN POA CRI MORBID OBESITY HX REMOTE TOBACCO ABUSE HYPERLIPIDEMIA ADMITTED 02 support PRN CONSIDER CTA R/O PE ECHO CARDIOLOGY CONSULT PULM CONSULT RASTA QID TSH IS LOW, CHK FREE T4 SQ LOVENOX ONE MG/KG BID UNTIL PULM SEES CTA CHEST 09/03 neg for PE consult dr CENTENO Will consider for outpt MPI pending PE workup still feeling very weak 09/03 REPEAT FREE T4 TODAY plan for physical therapy and occupational therapy and [facility] d/c planning MIN PT EXAM, CHART REVIEW, > 50% OF TIME SPENT WITH EXAM, CHART REVIEW, PT CARE COORDINATION Vitals Vitals Vital Signs Date Time Temp Pulse Resp B/P (MAP) Pulse Ox O2 Delivery O2 Flow Rate FiO2 09/05/19 08:05 68 154/69 09/05/19 07:43 95 Room Air 09/05/19 03:22 98.2 20 98.2 Physical Exam General: Alert, Oriented X3, Cooperative, No acute distress Heart: Regular rate, Normal S1, Normal S2 Lungs: Clear Abdomen: Normal bowel sounds, Soft, Other (obese ) Extremities: No cyanosis, No edema, Normal pulses Skin: No significant lesion Labs LABS Laboratory Tests Test 09/04/19 11:05 09/04/19 16:44 09/04/19 20:28 09/05/19 07:41 Glucose (Fingerstick) 121 mg/dL (70-99) 197 mg/dL (70-99) 127 mg/dL (70-99) 132 mg/dL (70-99) Assessment and Plan Assessmemt and Plan Problems Medical Problems: (1) Shortness of breath Status: Acute Comment Review of Relevant I have reviewed the following items lena (where applicable) has been applied. Labs Laboratory Tests Test 09/03/19 12:10 09/03/19 16:46 09/03/19 21:19 09/04/19 07:44 Glucose (Fingerstick) 132 mg/dL (70-99) 148 mg/dL (70-99) 178 mg/dL (70-99) 114 mg/dL (70-99) Test 09/04/19 11:05 09/04/19 16:44 09/04/19 20:28 09/05/19 07:41 Glucose (Fingerstick) 121 mg/dL (70-99) 197 mg/dL (70-99) 127 mg/dL (70-99) 132 mg/dL (70-99) Laboratory Tests Test 09/04/19 11:05 09/04/19 16:44 09/04/19 20:28 09/05/19 07:41 Glucose (Fingerstick) 121 mg/dL (70-99) 197 mg/dL (70-99) 127 mg/dL (70-99) 132 mg/dL (70-99) Microbiology 09/01/19 Blood Culture - Preliminary, Resulted NO GROWTH AFTER 3 DAYS Medications Current Medications Iohexol (Omnipaque 350 Mg/ml) 75 ml 1X ONCE IV Last administered on 08/31/19at 11:00; Start 08/31/19 at 22:00; Stop 08/31/19 at 22:01; Status DC Info (CONTRAST GIVEN -- Rx MONITORING) 1 each PRN DAILY PRN MC SEE COMMENTS; Start 08/31/19 at 21:30; Stop 09/02/19 at 21:29; Status DC Insulin Human Lispro (HumaLOG) 0-5 UNITS TIDWMEALS SQ Last administered on 09/04/19 17:10; Start 09/01/19 at 08:00 Dextrose (Dextrose 50%-Water Syringe) 12.5 gm PRN Q15MIN PRN IV SEE COMMENTS; Start 09/01/19 at 01:00 Amlodipine Besylate (Norvasc) 5 mg DAILY PO Last administered on 09/05/19 08:05; Start 09/01/19 at 14:00 Aspirin (Ecotrin) 81 mg DAILY PO Last administered on 09/05/19 08:03; Start 1 at 14:00 Atorvastatin Calcium (Lipitor) 20 mg HS PO Last administered on 09/02/19 20:34; Start 09/01/19 at 21:00; Stop 09/03/19 at 11:51; Status DC Calcium/Vitamin D (Oscal D 500mg/ 200uts) 1 tab DAILY PO Last administered on 09/05/19 08:03; Start 09/01/19 at 14:00 Vitamin D (Vitamin D3) 1,000 unit DAILY PO Last administered on 09/05/19 08:03; Start 09/01/19 at 14:00 Gabapentin (Neurontin) 100 mg TID PO Last administered on 09/05/19 08:03; Start 09/01/19 at 14:00 Glipizide (Glucotrol) 5 mg DAILYWBKFT PO Last administered on 09/05/19 08:05; Start 09/02/19 at 08:00 Acetaminophen/ Hydrocodone Bitart (Lortab 7.5/325) 1 tab PRN Q6HRS PRN PO MODERATE PAIN Last administered on 09/01/19 14:29; Start 09/01/19 at 13:15 Hydrocortisone (Cortef) 10 mg DAILY PO ; Start 09/01/19 at 14:00; Status Cancel Levothyroxine Sodium (Synthroid) 125 mcg DAILYAC PO Last administered on 07:45; Start 09/02/19 at 07:30 Metoprolol Succinate (Toprol Xl) 25 mg DAILY PO Last administered on 09/05/19 08:04; Start 09/01/19 at 14:00 Oxycodone/ Acetaminophen (Percocet 10/325) 1 tab PRN Q6HRS PRN PO SEVERE PAIN; Start 09/01/19 at 13:15 Sertraline HCl (Zoloft) 50 mg DAILY PO Last administered on 09/05/19at 08:05; Start 09/01/19 at 14:00 Non-Formulary Medication (Budesonide/ Formoterol Fumarate (Symbicort 160-4.5 Mcg Inhaler)) 2 puff BID IH ; Start 09/01/19 at 21:00; Status UNV Non-Formulary Medication (Difluprednate (Durezol)) 5 ml BID OP ; Start 09/01/19 at 21:00; Status UNV Metformin HCl (Glucophage) 1,000 mg BIDWMEALS PO Last administered on 09/03/19at 09:06; Start 09/03/19 at 08:00; Stop 09/03/19 at 10:28; Status DC Pantoprazole Sodium (Protonix) 40 mg DAILYAC PO Last administered on 09/05/19at 07:45; Start 09/02/19 at 07:30 Lisinopril (Prinivil) 20 mg DAILY PO Last administered on 09/05/19at 08:04; Start 09/01/19 at 14:00 Non-Formulary Medication (Tobramycin/ Dexamethasone (Tobradex Eye Ointment)) 1 gary BID OS ; Start 09/01/19 at 21:00; Status UNV Budesonide (Pulmicort) 0.5 mg RTBID NEB Last administered on 09/05/19at 07:42; Start 09/01/19 at 20:00 Albuterol Sulfate (Ventolin Neb Soln) 2.5 mg RTQID NEB ; Start 09/01/19 at 16:00; Status Cancel Enoxaparin Sodium (Lovenox Per Pharmacy Treatment Dosing) 1 each PRN DAILY PRN MC SEE COMMENTS; Start 09/01/19 at 13:30; Stop 09/03/19 at 14:14; Status DC Sodium Chloride (Normal Saline Flush) 3 ml QSHIFT PRN IV AFTER MEDS AND BLOOD DRAWS; Start 09/01/19 at 13:30 Ondansetron HCl (Zofran) 4 mg PRN Q4HRS PRN IV NAUSEA/VOMITING; Start 09/01/19 at 13:30 Acetaminophen (Tylenol) 650 mg PRN Q4HRS PRN PO TEMP OVER 100.4F OR MILD PAIN; Start 09/01/19 at 13:30 Clonidine HCl (Catapres) 0.1 mg PRN Q6HRS PRN PO SBP>160 OR DBP>90; Start 09/01/19 at 13:30 Docusate Sodium (Colace) 100 mg PRN BID PRN PO HARD STOOLS; Start 09/01/19 at 13:30 Albuterol/ Ipratropium (Duoneb) 3 ml Q4HRS NEB Last administered on 09/05/19at 07:42; Start 09/01/19 at 16:00 Guaifenesin (Robitussin) 200 mg PRN Q4HRS PRN PO COUGH; Start 09/01/19 at 13:30 Enoxaparin Sodium (Lovenox 120mg Syringe) 110 mg Q12HR SQ Last administered on 09/03/19at 09:09; Start 09/01/19 at 14:00; Stop 09/03/19 at 14:16; Status DC Hydrocortisone (Cortef) 20 mg BID PO ; Start 09/01/19 at 21:00; Status Cancel Hydrocortisone (Cortef) 10 mg 1X ONCE PO Last administered on 09/01/19at 15:04; Start 09/01/19 at 14:45; Stop 09/01/19 at 14:46; Status DC Hydrocortisone (Cortef) 10 mg HS PO Last administered on 09/04/19at 21:05; Start 09/01/19 at 21:00 Hydrocortisone (Cortef) 20 mg DAILYWBKFT PO Last administered on 09/05/19at 08:03; Start 09/02/19 at 08:00 Calcium Carbonate/ Glycine (Tums) 500 mg PRN AFTMEALHC PRN PO INDIGESTION Last administered on 09/03/19at 09:05; Start 09/02/19 at 22:15 Iohexol (Omnipaque 350 Mg/ml) 100 ml 1X ONCE IV ; Start 09/03/19 at 10:30; Stop 09/03/19 at 10:31; Status DC Info (CONTRAST GIVEN -- Rx MONITORING) 1 each PRN DAILY PRN MC SEE COMMENTS; Start 09/03/19 at 10:30; Stop 09/05/19 at 10:29 Metformin HCl (Glucophage) 1,000 mg BIDWMEALS PO ; Start 09/06/19 at 08:00 Atorvastatin Calcium (Lipitor) 40 mg HS PO Last administered on 09/04/19at 21:05; Start 09/03/19 at 21:00 Active Scripts Active Humalog (Insulin Lispro) 100 Unit/1 Ml Insuln.pen 0 Units SQ TIDWMEALS 10 Days Colace (Docusate Sodium) 100 Mg Capsule 100 Mg PO PRN BID PRN 14 Days Tylenol (Acetaminophen) 325 Mg Tablet 650 Mg PO PRN Q4HRS PRN 14 Days Atorvastatin Calcium 20 Mg Tablet 40 Mg PO HS 30 Days Duoneb 0.5-3(2.5) Mg/3 Ml (Albuterol/Ipratropium) 3 Ml Ampul.neb 3 Ml NEB Q4HRS 30 Days Reported Cortef (Hydrocortisone) 20 Mg Tablet 20 Mg PO DAILY08 Cortef (Hydrocortisone) 10 Mg Tablet 10 Mg PO HS Calcium 500 + Vit D 200 Tablet (Calcium Carbonate/Vitamin D3) 1 Each Tablet 1 Each PO DAILY Vitamin D3 (Cholecalciferol (Vitamin D3)) 1,000 Unit Tablet 1,000 Unit PO DAILY Aspirin Ec (Aspirin) 81 Mg Tablet.dr 81 Mg PO DAILY Glipizide 5 Mg Tablet 5 Mg PO DAILY Durezol (Difluprednate) 5 Ml Drops 5 Ml OP BID Tobradex Eye Ointment (Tobramycin/Dexamethasone) 3.5 Gm Oint...g. 1 Gary OS BID Protonix (Pantoprazole Sodium) 20 Mg Tablet.dr 40 Mg PO DAILY Symbicort 160-4.5 Mcg Inhaler (Budesonide/Formoterol Fumarate) 10.2 Gm Hfa.aer.ad 2 Puff IH BID Zoloft (Sertraline Hcl) 50 Mg Tablet 50 Mg PO DAILY Metformin Hcl 1,000 Mg Tablet 1,000 Mg PO BIDWMEALS Neurontin (Gabapentin) 100 Mg Capsule 100 Mg PO TID Synthroid (Levothyroxine Sodium) 125 Mcg Tablet 125 Mcg PO DAILYAC Metoprolol Succinate ( Xl ) (Metoprolol Succinate) 25 Mg Tab.er.24h 25 Mg PO DAILY Amlodipine Besylate 5 Mg Tablet 5 Mg PO DAILY Ramipril 10 Mg Capsule 1 Cap PO DAILY Vitals/I & O Vital Sign - Last 24 Hours 09/04/19 09/04/19 09/04/19 09/04/19 11:00 11:29 14:51 15:09 Temp 98.0 98.1 98.0 98.1 Pulse 70 68 Resp 18 18 B/P (MAP) 125/57 (79) 135/65 (88) Pulse Ox 94 95 96 95 O2 Delivery Room Air Room Air Room Air Room Air 09/04/19 09/04/19 09/04/19 09/05/19 19:00 20:15 23:09 03:22 Temp 98.4 98.3 98.2 98.4 98.3 98.2 Pulse 69 66 62 Resp 20 20 20 B/P (MAP) 120/44 (69) 121/57 (78) 137/57 (83) Pulse Ox 95 95 92 O2 Delivery Room Air Room Air Room Air Room Air 09/05/19 09/05/19 09/05/19 09/05/19 07:43 08:04 08:04 08:05 Pulse 68 68 68 B/P (MAP) 154/69 154/69 154/69 Pulse Ox 95 O2 Delivery Room Air Intake and Output 09/04/19 09/04/19 09/05/19 15:00 23:00 07:00 Intake Total 610 ml 250 ml Output Total 900 ml Balance 610 ml 250 ml -900 ml ELIZABETH MAZARIEGOS MD Sep 05, 2019 08:58
--- NOTE | 2019-09-05 09:28 | PDOC ---
PULMONARY PROGRESS NOTES Subjective no soa, on RA Vitals Vital Signs Date Time Temp Pulse Resp B/P (MAP) Pulse Ox O2 Delivery O2 Flow Rate FiO2 09/05/19 08:05 68 154/69 09/05/19 07:43 95 Room Air 09/05/19 03:22 98.2 20 98.2 ROS: No Nausea, No Chest Pain, No Abdominal Pain, No Increase Cough General: Alert, No acute distress Lungs: Clear Cardiovascular: S1 Abdomen: Soft, Other (obese) Neuro Exam: Alert Extremities: Other (1+edema) Labs Laboratory Tests Test 09/03/19 12:10 09/03/19 16:46 09/03/19 21:19 09/04/19 07:44 Glucose (Fingerstick) 132 mg/dL (70-99) 148 mg/dL (70-99) 178 mg/dL (70-99) 114 mg/dL (70-99) Test 09/04/19 11:05 09/04/19 16:44 09/04/19 20:28 09/05/19 07:41 Glucose (Fingerstick) 121 mg/dL (70-99) 197 mg/dL (70-99) 127 mg/dL (70-99) 132 mg/dL (70-99) Laboratory Tests Test 09/04/19 11:05 09/04/19 16:44 09/04/19 20:28 09/05/19 07:41 Glucose (Fingerstick) 121 mg/dL (70-99) 197 mg/dL (70-99) 127 mg/dL (70-99) 132 mg/dL (70-99) Medications Active Scripts Medications Dose Route/Sig Max Daily Dose Days Date Category Cortef (Hydrocortisone) 20 Mg Tablet 20 Mg PO DAILY08 09/01/19 Reported Cortef (Hydrocortisone) 10 Mg Tablet 10 Mg PO HS 09/01/19 Reported Calcium 500 + Vit D 200 Tablet (Calcium Carbonate/Vitamin D3) 1 Each Tablet 1 Each PO DAILY 09/01/19 Reported Vitamin D3 (Cholecalciferol (Vitamin D3)) 1,000 Unit Tablet 1,000 Unit PO DAILY 09/01/19 Reported Aspirin Ec (Aspirin) 81 Mg Tablet.dr 81 Mg PO DAILY 09/01/19 Reported Glipizide 5 Mg Tablet 5 Mg PO DAILY 09/01/19 Reported Atorvastatin Calcium 20 Mg Tablet 20 Mg PO HS 09/01/19 Reported Durezol (Difluprednate) 5 Ml Drops 5 Ml OP BID 09/01/19 Reported Tobradex Eye Ointment (Tobramycin/Dexamethasone) 3.5 Gm Oint...g. 1 Gary OS BID 09/01/19 Reported Protonix (Pantoprazole Sodium) 20 Mg Tablet.dr 40 Mg PO DAILY 09/01/19 Reported Symbicort 160-4.5 Mcg Inhaler (Budesonide/Formoterol Fumarate) 10.2 Gm Hfa.aer.ad 2 Puff IH BID 09/01/19 Reported Percocet 10-325 Mg Tablet (Oxycodone/Acetaminophen) 1 Each Tablet 1 Tab PO PRN Q6HRS PRN 09/01/19 Reported Zoloft (Sertraline Hcl) 50 Mg Tablet 50 Mg PO DAILY 09/01/19 Reported Metformin Hcl 1,000 Mg Tablet 1,000 Mg PO BIDWMEALS 09/01/19 Reported Neurontin (Gabapentin) 100 Mg Capsule 100 Mg PO TID 09/01/19 Reported Synthroid (Levothyroxine Sodium) 125 Mcg Tablet 125 Mcg PO DAILYAC 09/01/19 Reported Metoprolol Succinate ( Xl ) (Metoprolol Succinate) 25 Mg Tab.er.24h 25 Mg PO DAILY 09/01/19 Reported Hydrocodone-Apap 7.5-325 (Hydrocodone Bit/Acetaminophen) 1 Tab Tablet 1 Tab PO PRN Q6HRS PRN 09/01/19 Reported Amlodipine Besylate 5 Mg Tablet 5 Mg PO DAILY 09/01/19 Reported Ramipril 10 Mg Capsule 1 Cap PO DAILY 09/01/19 Reported Impression . 1. Dyspnea with no significant hypoxia. The V/Q scan is intermediate probability. mostly matched defects from his chronic obstructive pulmonary disease. Clinical suspicion for thromboembolic disease is low. His Dopplers were negative as well. CTA chest REVIEWED/ NO PE 2. No evidence of deep venous thrombosis. 3. Underlying chronic obstructive pulmonary disease, which is clinically compensated. 4. History of obstructive sleep apnea with claustrophobia to CPAP mask. He uses oxygen at nighttime. 5. Morbid obesity with possible cor pulmonale. Plan . 1. OFF Lovenox 2. CTA chest with no PE 3. DuoNebs. 4. Hydrocortisone chronically. 5. Continue bronchodilators. 6. ok with dc to [facility] Aleman MD Sep 05, 2019 09:28
[2019-09-05 11:00] VITALS: BP 129/57
[2019-09-05 14:36] VITALS: BP 116/54
[2019-09-05 19:00] VITALS: BP 101/38
[2019-09-05] MEDS: ATORVASTATIN CALCIUM 20 MG TABLET PO SCH (20:53)
[2019-09-05 23:08] VITALS: BP 117/52
[2019-09-06 03:00] VITALS: BP 166/68
[2019-09-06] MEDS: IPRATRPIUM/ALBUTEROL 0.5/2.5MG 3 ML NEBU. NEB SCH ×4 (03:38→11:45)
[2019-09-06 06:38] VITALS: BP 120/57
[2019-09-06] MEDS: BUDESONIDE 0.5 MG/2 ML NEBU. NEB SCH (07:51)
[2019-09-06] MEDS: INSULIN LISPRO 300 UNITS/3 ML VIAL. SQ SCH ×2 (08:00→12:00)
[2019-09-06] MEDS ORDERED: metFORMIN 500 MG TABLET PO SCH (08:00)
[2019-09-06] MEDS: LEVOTHYROXINE 125 MCG TABLET PO SCH (08:07)
[2019-09-06] MEDS: HYDROCORTISONE 10 MG TABLET PO SCH (08:07)
[2019-09-06] MEDS: ASPIRIN ENTERIC COATED 81 MG TABLET.DR. PO SCH (08:07)
[2019-09-06] MEDS: PANTOPRAZOLE 40 MG TABLET.DR. PO SCH (08:07)
[2019-09-06] MEDS: GABAPENTIN 100 MG CAPSULE. PO SCH ×2 (08:08→13:15)
[2019-09-06] MEDS: glipiZIDE 5 MG TABLET PO SCH (08:08)
[2019-09-06] MEDS: CALCIUM CARB/VIT D3 500/200 TABLET. PO SCH (08:08)
[2019-09-06] MEDS: SERTRALINE 50 MG TABLET. PO SCH (08:08)
[2019-09-06] MEDS: CHOLECALCIFEROL (VITAMIN D3) 1,000 UNIT TABLET PO SCH (08:08)
[2019-09-06] MEDS: LISINOPRIL 20 MG TABLET PO SCH (08:08)
[2019-09-06] MEDS: METOPROLOL SUCC 24HR ER 25 MG TAB.ER.24H. PO SCH (08:09)
[2019-09-06] MEDS: amLODIPine BESYLATE 5 MG TABLET PO SCH (08:09)
--- NOTE | 2019-09-06 09:36 | PDOC ---
PROGRESS NOTES Subjective Subjective He admits some soreness behind his right knee while up walking. Objective Objective Vital Signs Date Time Temp Pulse Resp B/P (MAP) Pulse Ox O2 Delivery O2 Flow Rate FiO2 09/06/19 08:09 64 120/57 09/06/19 07:52 96 Room Air 09/06/19 06:38 97.6 17 97.6 09/05/19 19:00 2.0 Intake and Output 09/06/19 06:59 Intake Total 680 ml Output Total 1550 ml Balance -870 ml Intake Oral 680 ml Output Urine Total 1550 ml Physical Exam Physical Exam He is alert,supine in bed and he is moving good in bed and walking with roller walker for short distances. Minimal tenderness to palpation over hamstring tendon. Assessment Assessment Problems Medical Problems: (1) Shortness of breath Status: Acute Plan Plan of Care To SNF when medically stable. Comment Review of Relevant I have reviewed the following items lena (where applicable) has been applied. Labs Laboratory Tests Test 09/04/19 11:05 09/04/19 16:44 09/04/19 20:28 09/05/19 07:41 Glucose (Fingerstick) 121 mg/dL (70-99) 197 mg/dL (70-99) 127 mg/dL (70-99) 132 mg/dL (70-99) Test 09/05/19 12:05 09/05/19 17:03 09/05/19 20:50 09/06/19 07:40 Glucose (Fingerstick) 147 mg/dL (70-99) 146 mg/dL (70-99) 117 mg/dL (70-99) 120 mg/dL (70-99) Laboratory Tests Test 09/05/19 12:05 09/05/19 17:03 09/05/19 20:50 09/06/19 07:40 Glucose (Fingerstick) 147 mg/dL (70-99) 146 mg/dL (70-99) 117 mg/dL (70-99) 120 mg/dL (70-99) Microbiology 09/01/19 Blood Culture - Preliminary, Resulted NO GROWTH AFTER 4 DAYS Medications Current Medications Iohexol (Omnipaque 350 Mg/ml) 75 ml 1X ONCE IV Last administered on 08/31/19at 11:00; Start 08/31/19 at 22:00; Stop 08/31/19 at 22:01; Status DC Info (CONTRAST GIVEN -- Rx MONITORING) 1 each PRN DAILY PRN MC SEE COMMENTS; Start 08/31/19 at 21:30; Stop 09/02/19 at 21:29; Status DC Insulin Human Lispro (HumaLOG) 0-5 UNITS TIDWMEALS SQ Last administered on 09/04/19 17:10; Start 09/01/19 at 08:00 Dextrose (Dextrose 50%-Water Syringe) 12.5 gm PRN Q15MIN PRN IV SEE COMMENTS; Start 09/01/19 at 01:00 Amlodipine Besylate (Norvasc) 5 mg DAILY PO Last administered on 09/06/19 08:09; Start 09/01/19 at 14:00 Aspirin (Ecotrin) 81 mg DAILY PO Last administered on 09/06/19 08:07; Start 09/01/19 at 14:00 Atorvastatin Calcium (Lipitor) 20 mg HS PO Last administered on 09/02/19 20:34; Start 09/01/19 at 21:00; Stop 09/03/19 at 11:51; Status DC Calcium/Vitamin D (Oscal D 500mg/ 200uts) 1 tab DAILY PO Last administered on 09/06/19 08:08; Start 09/01/19 at 14:00 Vitamin D (Vitamin D3) 1,000 unit DAILY PO Last administered on 09/06/19 08:08; Start 09/01/19 at 14:00 Gabapentin (Neurontin) 100 mg TID PO Last administered on 09/06/19 08:08; Start 09/01/19 at 14:00 Glipizide (Glucotrol) 5 mg DAILYWBKFT PO Last administered on 09/06/19 08:08; Start 09/02/19 at 08:00 Acetaminophen/ Hydrocodone Bitart (Lortab 7.5/325) 1 tab PRN Q6HRS PRN PO MODERATE PAIN Last administered on 09/01/19 14:29; Start 09/01/19 at 13:15 Hydrocortisone (Cortef) 10 mg DAILY PO ; Start 09/01/19 at 14:00; Status Cancel Levothyroxine Sodium (Synthroid) 125 mcg DAILYAC PO Last administered on 09/06/19 08:07; Start 09/02/19 at 07:30 Metoprolol Succinate (Toprol Xl) 25 mg DAILY PO Last administered on 09/06/19at 08:09; Start 09/01/19 at 14:00 Oxycodone/ Acetaminophen (Percocet 10/325) 1 tab PRN Q6HRS PRN PO SEVERE PAIN; Start 09/01/19 at 13:15 Sertraline HCl (Zoloft) 50 mg DAILY PO Last administered on 09/06/19at 08:08; Start 09/01/19 at 14:00 Non-Formulary Medication (Budesonide/ Formoterol Fumarate (Symbicort 160-4.5 Mcg Inhaler)) 2 puff BID IH ; Start 09/01/19 at 21:00; Status UNV Non-Formulary Medication (Difluprednate (Durezol)) 5 ml BID OP ; Start 09/01/19 at 21:00; Status UNV Metformin HCl (Glucophage) 1,000 mg BIDWMEALS PO Last administered on 09/03/19at 09:06; Start 09/03/19 at 08:00; Stop 09/03/19 at 10:28; Status DC Pantoprazole Sodium (Protonix) 40 mg DAILYAC PO Last administered on 09/06/19at 08:07; Start 09/02/19 at 07:30 Lisinopril (Prinivil) 20 mg DAILY PO Last administered on 09/06/19at 08:08; Start 09/01/19 at 14:00 Non-Formulary Medication (Tobramycin/ Dexamethasone (Tobradex Eye Ointment)) 1 gary BID OS ; Start 09/01/19 at 21:00; Status UNV Budesonide (Pulmicort) 0.5 mg RTBID NEB Last administered on 09/06/19at 07:51; Start 09/01/19 at 20:00 Albuterol Sulfate (Ventolin Neb Soln) 2.5 mg RTQID NEB ; Start 09/01/19 at 16:00; Status Cancel Enoxaparin Sodium (Lovenox Per Pharmacy Treatment Dosing) 1 each PRN DAILY PRN MC SEE COMMENTS; Start 09/01/19 at 13:30; Stop 09/03/19 at 14:14; Status DC Sodium Chloride (Normal Saline Flush) 3 ml QSHIFT PRN IV AFTER MEDS AND BLOOD DRAWS; Start 09/01/19 at 13:30 Ondansetron HCl (Zofran) 4 mg PRN Q4HRS PRN IV NAUSEA/VOMITING; Start 09/01/19 at 13:30 Acetaminophen (Tylenol) 650 mg PRN Q4HRS PRN PO TEMP OVER 100.4F OR MILD PAIN; Start 09/01/19 at 13:30 Clonidine HCl (Catapres) 0.1 mg PRN Q6HRS PRN PO SBP>160 OR DBP>90; Start 09/01/19 at 13:30 Docusate Sodium (Colace) 100 mg PRN BID PRN PO HARD STOOLS; Start 09/01/19 at 13:30 Albuterol/ Ipratropium (Duoneb) 3 ml Q4HRS NEB Last administered on 09/06/19at 07:51; Start 09/01/19 at 16:00 Guaifenesin (Robitussin) 200 mg PRN Q4HRS PRN PO COUGH; Start 09/01/19 at 13:30 Enoxaparin Sodium (Lovenox 120mg Syringe) 110 mg Q12HR SQ Last administered on 09/03/19at 09:09; Start 09/01/19 at 14:00; Stop 09/03/19 at 14:16; Status DC Hydrocortisone (Cortef) 20 mg BID PO ; Start 09/01/19 at 21:00; Status Cancel Hydrocortisone (Cortef) 10 mg 1X ONCE PO Last administered on 09/01/19at 15:04; Start 09/01/19 at 14:45; Stop 09/01/19 at 14:46; Status DC Hydrocortisone (Cortef) 10 mg HS PO Last administered on 09/05/19at 20:53; Sta rt 09/01/19 at 21:00 Hydrocortisone (Cortef) 20 mg DAILYWBKFT PO Last administered on 09/06/19at 08:07; Start 09/02/19 at 08:00 Calcium Carbonate/ Glycine (Tums) 500 mg PRN AFTMEALHC PRN PO INDIGESTION Last administered on 09/03/19at 09:05; Start 09/02/19 at 22:15 Iohexol (Omnipaque 350 Mg/ml) 100 ml 1X ONCE IV ; Start 09/03/19 at 10:30; Stop 09/03/19 at 10:31; Status DC Info (CONTRAST GIVEN -- Rx MONITORING) 1 each PRN DAILY PRN MC SEE COMMENTS; Start 09/03/19 at 10:30; Stop 09/05/19 at 10:29; Status DC Metformin HCl (Glucophage) 1,000 mg BIDWMEALS PO Last administered on 09/06/19at 08:07; Start 09/06/19 at 08:00 Atorvastatin Calcium (Lipitor) 40 mg HS PO Last administered on 09/05/19at 20:53; Start 09/03/19 at 21:00 Active Scripts Active Humalog (Insulin Lispro) 100 Unit/1 Ml Insuln.pen 0 Units SQ TIDWMEALS 10 Days Colace (Docusate Sodium) 100 Mg Capsule 100 Mg PO PRN BID PRN 14 Days Tylenol (Acetaminophen) 325 Mg Tablet 650 Mg PO PRN Q4HRS PRN 14 Days Atorvastatin Calcium 20 Mg Tablet 40 Mg PO HS 30 Days Duoneb 0.5-3(2.5) Mg/3 Ml (Albuterol/Ipratropium) 3 Ml Ampul.neb 3 Ml NEB Q4HRS 30 Days Reported Cortef (Hydrocortisone) 20 Mg Tablet 20 Mg PO DAILY08 Cortef (Hydrocortisone) 10 Mg Tablet 10 Mg PO HS Calcium 500 + Vit D 200 Tablet (Calcium Carbonate/Vitamin D3) 1 Each Tablet 1 Each PO DAILY Vitamin D3 (Cholecalciferol (Vitamin D3)) 1,000 Unit Tablet 1,000 Unit PO DAILY Aspirin Ec (Aspirin) 81 Mg Tablet.dr 81 Mg PO DAILY Glipizide 5 Mg Tablet 5 Mg PO DAILY Durezol (Difluprednate) 5 Ml Drops 5 Ml OP BID Tobradex Eye Ointment (Tobramycin/Dexamethasone) 3.5 Gm Oint...g. 1 Gary OS BID Protonix (Pantoprazole Sodium) 20 Mg Tablet.dr 40 Mg PO DAILY Symbicort 160-4.5 Mcg Inhaler (Budesonide/Formoterol Fumarate) 10.2 Gm Hfa.aer.ad 2 Puff IH BID Zoloft (Sertraline Hcl) 50 Mg Tablet 50 Mg PO DAILY Metformin Hcl 1,000 Mg Tablet 1,000 Mg PO BIDWMEALS Neurontin (Gabapentin) 100 Mg Capsule 100 Mg PO TID Synthroid (Levothyroxine Sodium) 125 Mcg Tablet 125 Mcg PO DAILYAC Metoprolol Succinate ( Xl ) (Metoprolol Succinate) 25 Mg Tab.er.24h 25 Mg PO DAILY Amlodipine Besylate 5 Mg Tablet 5 Mg PO DAILY Ramipril 10 Mg Capsule 1 Cap PO DAILY Vitals/I & O Vital Sign - Last 24 Hours 09/05/19 09/05/19 09/05/19 09/05/19 11:00 11:25 14:36 18:29 Temp 98.0 98.5 98.0 98.5 Pulse 76 76 Resp 14 14 B/P (MAP) 129/57 (81) 116/54 (74) Pulse Ox 94 94 95 O2 Delivery Room Air Room Air Room Air Room Air 09/05/19 09/05/19 09/05/19 09/06/19 19:00 20:00 23:08 03:00 Temp 98.1 98.6 98.1 98.1 98.6 98.1 Pulse 72 65 66 Resp 18 18 17 B/P (MAP) 101/38 (59) 117/52 (73) 166/68 (100) Pulse Ox 95 95 95 O2 Delivery Nasal Cannula Room Air Room Air Room Air O2 Flow Rate 2.0 09/06/19 09/06/19 09/06/19 09/06/19 06:38 07:52 08:08 08:09 Temp 97.6 97.6 Pulse 64 64 64 Resp 17 B/P (MAP) 120/57 (78) 120/57 120/57 Pulse Ox 94 96 O2 Delivery Room Air Room Air 09/06/19 08:09 Pulse 64 B/P (MAP) 120/57 Intake and Output 09/05/19 09/05/19 09/06/19 14:59 22:59 06:59 Intake Total 480 ml 200 ml Output Total 1550 ml Balance 480 ml 200 ml -1550 ml DUSTY CENTENO MD Sep 06, 2019 09:36
--- NOTE | 2019-09-06 10:48 | PDOC ---
PULMONARY PROGRESS NOTES Subjective no soa, on RA Vitals Vital Signs Date Time Temp Pulse Resp B/P (MAP) Pulse Ox O2 Delivery O2 Flow Rate FiO2 09/06/19 08:09 64 120/57 09/06/19 08:00 Room Air 09/06/19 07:52 96 09/06/19 06:38 97.6 17 97.6 09/05/19 19:00 2.0 ROS: No Nausea, No Chest Pain, No Abdominal Pain, No Increase Cough General: Alert, No acute distress Lungs: Clear Cardiovascular: S1 Abdomen: Soft, Other (obese) Neuro Exam: Alert Extremities: Other (1+edema) Labs Laboratory Tests Test 09/04/19 11:05 09/04/19 16:44 09/04/19 20:28 09/05/19 07:41 Glucose (Fingerstick) 121 mg/dL (70-99) 197 mg/dL (70-99) 127 mg/dL (70-99) 132 mg/dL (70-99) Test 09/05/19 12:05 09/05/19 17:03 09/05/19 20:50 09/06/19 07:40 Glucose (Fingerstick) 147 mg/dL (70-99) 146 mg/dL (70-99) 117 mg/dL (70-99) 120 mg/dL (70-99) Laboratory Tests Test 09/05/19 12:05 09/05/19 17:03 09/05/19 20:50 09/06/19 07:40 Glucose (Fingerstick) 147 mg/dL (70-99) 146 mg/dL (70-99) 117 mg/dL (70-99) 120 mg/dL (70-99) Medications Active Scripts Medications Dose Route/Sig Max Daily Dose Days Date Category Cortef (Hydrocortisone) 20 Mg Tablet 20 Mg PO DAILY08 09/01/19 Reported Cortef (Hydrocortisone) 10 Mg Tablet 10 Mg PO HS 09/01/19 Reported Calcium 500 + Vit D 200 Tablet (Calcium Carbonate/Vitamin D3) 1 Each Tablet 1 Each PO DAILY 09/01/19 Reported Vitamin D3 (Cholecalciferol (Vitamin D3)) 1,000 Unit Tablet 1,000 Unit PO DAILY 09/01/19 Reported Aspirin Ec (Aspirin) 81 Mg Tablet.dr 81 Mg PO DAILY 09/01/19 Reported Glipizide 5 Mg Tablet 5 Mg PO DAILY 09/01/19 Reported Atorvastatin Calcium 20 Mg Tablet 20 Mg PO HS 09/01/19 Reported Durezol (Difluprednate) 5 Ml Drops 5 Ml OP BID 09/01/19 Reported Tobradex Eye Ointment (Tobramycin/Dexamethasone) 3.5 Gm Oint...g. 1 Gary OS BID 09/01/19 Reported Protonix (Pantoprazole Sodium) 20 Mg Tablet.dr 40 Mg PO DAILY 09/01/19 Reported Symbicort 160-4.5 Mcg Inhaler (Budesonide/Formoterol Fumarate) 10.2 Gm Hfa.aer.ad 2 Puff IH BID 09/01/19 Reported Percocet 10-325 Mg Tablet (Oxycodone/Acetaminophen) 1 Each Tablet 1 Tab PO PRN Q6HRS PRN 09/01/19 Reported Zoloft (Sertraline Hcl) 50 Mg Tablet 50 Mg PO DAILY 09/01/19 Reported Metformin Hcl 1,000 Mg Tablet 1,000 Mg PO BIDWMEALS 09/01/19 Reported Neurontin (Gabapentin) 100 Mg Capsule 100 Mg PO TID 09/01/19 Reported Synthroid (Levothyroxine Sodium) 125 Mcg Tablet 125 Mcg PO DAILYAC 09/01/19 Reported Metoprolol Succinate ( Xl ) (Metoprolol Succinate) 25 Mg Tab.er.24h 25 Mg PO DAILY 09/01/19 Reported Hydrocodone-Apap 7.5-325 (Hydrocodone Bit/Acetaminophen) 1 Tab Tablet 1 Tab PO PRN Q6HRS PRN 09/01/19 Reported Amlodipine Besylate 5 Mg Tablet 5 Mg PO DAILY 09/01/19 Reported Ramipril 10 Mg Capsule 1 Cap PO DAILY 09/01/19 Reported Impression . 1. Dyspnea with no significant hypoxia. The V/Q scan is intermediate probability. mostly matched defects from his chronic obstructive pulmonary disease. Clinical suspicion for thromboembolic disease is low. His Dopplers were negative as well. CTA chest REVIEWED/ NO PE 2. No evidence of deep venous thrombosis. 3. Underlying chronic obstructive pulmonary disease, which is clinically compensated. 4. History of obstructive sleep apnea with claustrophobia to CPAP mask. He uses oxygen at nighttime. 5. Morbid obesity with possible cor pulmonale. Plan . 1. OFF Lovenox 2. CTA chest with no PE 3. DuoNebs. 4. Hydrocortisone chronically. 5. Continue bronchodilators. 6. ok with dc to [facility] Aleman MD Sep 06, 2019 10:48
[2019-09-06 11:00] VITALS: BP 146/68
--- NOTE | 2019-09-06 11:08 | PDOC ---
PROGRESS NOTES History of Present Illness History of Present Illness VTE Prophylaxis Ordered VTE Prophylaxis Devices: Yes VTE Pharmacological Prophylaxi: Yes discharge dx Assessment/Plan Impression: generalized weakness COPD HX dyspnea 09/01 on echo left ventricular systolic function is normal. Ejection Fraction is 60%.normal LV segmental wall motion. Mild aortic regurgitation. Trace mitral regurgitation. Trace tricuspid regurgitation. PA pressure was estimated at 34 mmHg. The Ejection Fraction is 60%. There is normal LV segmental wall motion. Mild aortic regurgitation. Generalized weakness on ct 09/02 multilevel degenerative disc disease greatest at C6-7, to a lesser degree at C4-5, C5-6, C7-T1. There is multilevel spondylosis. There is likely mild spinal stenosis about 8 mm at C3-4 and to a lesser degree at C4-5. Uncovertebral degenerative change results in fairly severe narrowing of the left C6-7 neural foramen. There is also multilevel facet degenerative change. There is a lesser degree of [id number] narrowing of the right C5-6 neural foramen, minimal narrowing on the left at C5-6 and C4-5 and bilaterally at C3-C4. Shortness of breath WITH HIGH D-DIMER Intermediate probability for pulmonary embolism. ON V/Q SCAN POA CRI MORBID OBESITY HX REMOTE TOBACCO ABUSE HYPERLIPIDEMIA ADMITTED 02 support PRN CONSIDER CTA R/O PE ECHO CARDIOLOGY CONSULT PULM CONSULT RASTA QID TSH IS LOW, CHK FREE T4 SQ LOVENOX ONE MG/KG BID UNTIL PULM SEES CTA CHEST 09/03 neg for PE consult dr CENTENO Will consider for outpt MPI still feeling very weak 09/03 REPEAT FREE T4 TODAY plan physical therapy and occupational therapy and transfer to alf care unit inc synthroid to 150mcg po daily 23 d/c planning MIN PT EXAM, CHART REVIEW, > 50% OF TIME SPENT WITH EXAM, CHART REVIEW, PT CARE COORDINATION Vitals Vitals Vital Signs Date Time Temp Pulse Resp B/P (MAP) Pulse Ox O2 Delivery O2 Flow Rate FiO2 09/06/19 08:09 64 120/57 09/06/19 08:00 Room Air 09/06/19 07:52 96 09/06/19 06:38 97.6 17 97.6 09/05/19 19:00 2.0 Physical Exam General: Alert, Oriented X3, Cooperative, No acute distress Heart: Regular rate, Normal S1, Normal S2 Lungs: Clear Abdomen: Normal bowel sounds, Soft, Other (obese ) Extremities: No clubbing, No cyanosis, No edema, Normal pulses Skin: No significant lesion Labs LABS Laboratory Tests Test 09/05/19 12:05 09/05/19 17:03 09/05/19 20:50 09/06/19 07:40 Glucose (Fingerstick) 147 mg/dL (70-99) 146 mg/dL (70-99) 117 mg/dL (70-99) 120 mg/dL (70-99) Assessment and Plan Assessmemt and Plan Problems Medical Problems: (1) Shortness of breath Status: Acute Comment Review of Relevant I have reviewed the following items lena (where applicable) has been applied. Labs Laboratory Tests Test 09/04/19 16:44 09/04/19 20:28 09/05/19 07:41 09/05/19 12:05 Glucose (Fingerstick) 197 mg/dL (70-99) 127 mg/dL (70-99) 132 mg/dL (70-99) 147 mg/dL (70-99) Test 09/05/19 17:03 09/05/19 20:50 09/06/19 07:40 Glucose (Fingerstick) 146 mg/dL (70-99) 117 mg/dL (70-99) 120 mg/dL (70-99) Laboratory Tests Test 09/05/19 12:05 09/05/19 17:03 09/05/19 20:50 09/06/19 07:40 Glucose (Fingerstick) 147 mg/dL (70-99) 146 mg/dL (70-99) 117 mg/dL (70-99) 120 mg/dL (70-99) Microbiology 09/01/19 Blood Culture - Preliminary, Resulted NO GROWTH AFTER 4 DAYS Medications Current Medications Iohexol (Omnipaque 350 Mg/ml) 75 ml 1X ONCE IV Last administered on 08/31/19at 11:00; Start 08/31/19 at 22:00; Stop 08/31/19 at 22:01; Status DC Info (CONTRAST GIVEN -- Rx MONITORING) 1 each PRN DAILY PRN MC SEE COMMENTS; Start 08/31/19 at 21:30; Stop 09/02/19 at 21:29; Status DC Insulin Human Lispro (HumaLOG) 0-5 UNITS TIDWMEALS SQ Last administered on 09/04/19 17:10; Start 09/01/19 at 08:00 Dextrose (Dextrose 50%-Water Syringe) 12.5 gm PRN Q15MIN PRN IV SEE COMMENTS; Start 09/01/19 at 01:00 Amlodipine Besylate (Norvasc) 5 mg DAILY PO Last administered on 09/06/19 08:09; Start 09/01/19 at 14:00 Aspirin (Ecotrin) 81 mg DAILY PO Last administered on 09/06/19 08:07; Start 09/01/19 at 14:00 Atorvastatin Calcium (Lipitor) 20 mg HS PO Last administered on 09/02/19 20:34; Start 09/01/19 at 21:00; Stop 09/03/19 at 11:51; Status DC Calcium/Vitamin D (Oscal D 500mg/ 200uts) 1 tab DAILY PO Last administered on 09/06/19 08:08; Start 09/01/19 at 14:00 Vitamin D (Vitamin D3) 1,000 unit DAILY PO Last administered on 09/06/19 08:08; Start 09/01/19 at 14:00 Gabapentin (Neurontin) 100 mg TID PO Last administered on 09/06/19 08:08; St art 09/01/19 at 14:00 Glipizide (Glucotrol) 5 mg DAILYWBKFT PO Last administered on 09/06/19 08:08; Start 09/02/19 at 08:00 Acetaminophen/ Hydrocodone Bitart (Lortab 7.5/325) 1 tab PRN Q6HRS PRN PO MODERATE PAIN Last administered on 09/01/19 14:29; Start 09/01/19 at 13:15 Hydrocortisone (Cortef) 10 mg DAILY PO ; Start 09/01/19 at 14:00; Status Cancel Levothyroxine Sodium (Synthroid) 125 mcg DAILYAC PO Last administered on 09/06/19 08:07; Start 09/02/19 at 07:30 Metoprolol Succinate (Toprol Xl) 25 mg DAILY PO Last administered on 09/06/19 08:09; Start 09/01/19 at 14:00 Oxycodone/ Acetaminophen (Percocet 10/325) 1 tab PRN Q6HRS PRN PO SEVERE PAIN; Start 09/01/19 at 13:15 Sertraline HCl (Zoloft) 50 mg DAILY PO Last administered on 09/06/19at 08:08; Start 09/01/19 at 14:00 Non-Formulary Medication (Budesonide/ Formoterol Fumarate (Symbicort 160-4.5 Mcg Inhaler)) 2 puff BID IH ; Start 09/01/19 at 21:00; Status UNV Non-Formulary Medication (Difluprednate (Durezol)) 5 ml BID OP ; Start 09/01/19 at 21:00; Status UNV Metformin HCl (Glucophage) 1,000 mg BIDWMEALS PO Last administered on 09/03/19at 09:06; Start 09/03/19 at 08:00; Stop 09/03/19 at 10:28; Status DC Pantoprazole Sodium (Protonix) 40 mg DAILYAC PO Last administered on 09/06/19at 08:07; Start 09/02/19 at 07:30 Lisinopril (Prinivil) 20 mg DAILY PO Last administered on 09/06/19at 08:08; Start 09/01/19 at 14:00 Non-Formulary Medication (Tobramycin/ Dexamethasone (Tobradex Eye Ointment)) 1 gary BID OS ; Start 09/01/19 at 21:00; Status UNV Budesonide (Pulmicort) 0.5 mg RTBID NEB Last administered on 09/06/19at 07:51; Start 09/01/19 at 20:00 Albuterol Sulfate (Ventolin Neb Soln) 2.5 mg RTQID NEB ; Start 09/01/19 at 16:00; Status Cancel Enoxaparin Sodium (Lovenox Per Pharmacy Treatment Dosing) 1 each PRN DAILY PRN MC SEE COMMENTS; Start 09/01/19 at 13:30; Stop 09/03/19 at 14:14; Status DC Sodium Chloride (Normal Saline Flush) 3 ml QSHIFT PRN IV AFTER MEDS AND BLOOD DRAWS; Start 09/01/19 at 13:30 Ondansetron HCl (Zofran) 4 mg PRN Q4HRS PRN IV NAUSEA/VOMITING; Start 09/01/19 at 13:30 Acetaminophen (Tylenol) 650 mg PRN Q4HRS PRN PO TEMP OVER 100.4F OR MILD PAIN; Start 09/01/19 at 13:30 Clonidine HCl (Catapres) 0.1 mg PRN Q6HRS PRN PO SBP>160 OR DBP>90; Start 09/01/19 at 13:30 Docusate Sodium (Colace) 100 mg PRN BID PRN PO HARD STOOLS; Start 09/01/19 at 13:30 Albuterol/ Ipratropium (Duoneb) 3 ml Q4HRS NEB Last administered on 09/06/19at 07:51; Start 09/01/19 at 16:00 Guaifenesin (Robitussin) 200 mg PRN Q4HRS PRN PO COUGH; Start 09/01/19 at 13:30 Enoxaparin Sodium (Lovenox 120mg Syringe) 110 mg Q12HR SQ Last administered on 09/03/19at 09:09; Start 09/01/19 at 14:00; Stop 09/03/19 at 14:16; Status DC Hydrocortisone (Cortef) 20 mg BID PO ; Start 09/01/19 at 21:00; Status Cancel Hydrocortisone (Cortef) 10 mg 1X ONCE PO Last administered on 09/01/19at 15:04; Start 09/01/19 at 14:45; Stop 09/01/19 at 14:46; Status DC Hydrocortisone (Cortef) 10 mg HS PO Last administered on 09/05/19at 20:53; Start 09/01/19 at 21:00 Hydrocortisone (Cortef) 20 mg DAILYWBKFT PO Last administered on 09/06/19at 08:07; Start 09/02/19 at 08:00 Calcium Carbonate/ Glycine (Tums) 500 mg PRN AFTMEALHC PRN PO INDIGESTION Last administered on 09/03/19at 09:05; Start 09/02/19 at 22:15 Iohexol (Omnipaque 350 Mg/ml) 100 ml 1X ONCE IV ; Start 09/03/19 at 10:30; Stop 09/03/19 at 10:31; Status DC Info (CONTRAST GIVEN -- Rx MONITORING) 1 each PRN DAILY PRN MC SEE COMMENTS; Start 09/03/19 at 10:30; Stop 09/05/19 at 10:29; Status DC Metformin HCl (Glucophage) 1,000 mg BIDWMEALS PO Last administered on 09/06/19at 08:07; Start 09/06/19 at 08:00 Atorvastatin Calcium (Lipitor) 40 mg HS PO Last administered on 09/05/19at 20:5 3; Start 09/03/19 at 21:00 Active Scripts Active Humalog (Insulin Lispro) 100 Unit/1 Ml Insuln.pen 0 Units SQ TIDWMEALS 10 Days Colace (Docusate Sodium) 100 Mg Capsule 100 Mg PO PRN BID PRN 14 Days Tylenol (Acetaminophen) 325 Mg Tablet 650 Mg PO PRN Q4HRS PRN 14 Days Atorvastatin Calcium 20 Mg Tablet 40 Mg PO HS 30 Days Duoneb 0.5-3(2.5) Mg/3 Ml (Albuterol/Ipratropium) 3 Ml Ampul.neb 3 Ml NEB Q4HRS 30 Days Reported Cortef (Hydrocortisone) 20 Mg Tablet 20 Mg PO DAILY08 Cortef (Hydrocortisone) 10 Mg Tablet 10 Mg PO HS Calcium 500 + Vit D 200 Tablet (Calcium Carbonate/Vitamin D3) 1 Each Tablet 1 Each PO DAILY Vitamin D3 (Cholecalciferol (Vitamin D3)) 1,000 Unit Tablet 1,000 Unit PO DAILY Aspirin Ec (Aspirin) 81 Mg Tablet.dr 81 Mg PO DAILY Glipizide 5 Mg Tablet 5 Mg PO DAILY Durezol (Difluprednate) 5 Ml Drops 5 Ml OP BID Tobradex Eye Ointment (Tobramycin/Dexamethasone) 3.5 Gm Oint...g. 1 Gary OS BID Protonix (Pantoprazole Sodium) 20 Mg Tablet.dr 40 Mg PO DAILY Symbicort 160-4.5 Mcg Inhaler (Budesonide/Formoterol Fumarate) 10.2 Gm Hfa.aer.ad 2 Puff IH BID Zoloft (Sertraline Hcl) 50 Mg Tablet 50 Mg PO DAILY Metformin Hcl 1,000 Mg Tablet 1,000 Mg PO BIDWMEALS Neurontin (Gabapentin) 100 Mg Capsule 100 Mg PO TID Synthroid (Levothyroxine Sodium) 125 Mcg Tablet 125 Mcg PO DAILYAC Metoprolol Succinate ( Xl ) (Metoprolol Succinate) 25 Mg Tab.er.24h 25 Mg PO DAILY Amlodipine Besylate 5 Mg Tablet 5 Mg PO DAILY Ramipril 10 Mg Capsule 1 Cap PO DAILY Vitals/I & O Vital Sign - Last 24 Hours 10/6/19 10/6/19 10/6/19 10/6/19 11:25 14:36 18:29 19:00 Temp 98.5 98.1 98.5 98.1 Pulse 76 72 Resp 14 18 B/P (MAP) 116/54 (74) 101/38 (59) Pulse Ox 94 95 95 O2 Delivery Room Air Room Air Room Air Nasal Cannula O2 Flow Rate 2.0 09/05/19 09/05/19 09/06/19 09/06/19 20:00 23:08 03:00 06:38 Temp 98.6 98.1 97.6 98.6 98.1 97.6 Pulse 65 66 64 Resp 18 17 17 B/P (MAP) 117/52 (73) 166/68 (100) 120/57 (78) Pulse Ox 95 95 94 O2 Delivery Room Air Room Air Room Air Room Air 09/06/19 09/06/19 09/06/19 09/06/19 07:52 08:00 08:08 08:09 Pulse 64 64 B/P (MAP) 120/57 120/57 Pulse Ox 96 O2 Delivery Room Air Room Air 09/06/19 08:09 Pulse 64 B/P (MAP) 120/57 Intake and Output 09/05/19 09/05/19 09/06/19 15:00 23:00 07:00 Intake Total 480 ml 200 ml Output Total 1550 ml Balance 480 ml 200 ml -1550 ml ELIZABETH MAZARIEGOS MD Sep 06, 2019 11:08
--- NOTE | 2019-09-06 14:08 | NUR ---
STEVEN following pt. SW phoned and faxed orders to [facility] and pt will transport via [employer] between [phone]. Pt reported he already has his eye drops with him and will have one of his friend bring his inhalers to [facility]. Pt's choice and rights forms signed by pt and copies on chart. Discussed with RN.
--- NOTE | 2019-09-06 14:12 | NUR ---
This RN gave report to CIRILO Roque of [facility] at 1410. Pt left unit by wheelchair via transportation. Pt IV removed with no complications. Pt stable upon discharge and belongings sent with pt.
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
[2019-09-07] MEDS ORDERED: LEVOTHYROXINE 150 MCG TABLET PO SCH (06:00)
== END 2019-09-06 14:14 | DRG 392 ==
LOC: ER 17:44 → 5 SOUTH 20:53 → 6 SOUTH 09-01 14:54 → 5 SOUTH 09-03 17:12
PROVIDERS: ADMIT Family Medicine; ATTEND Family Medicine
DX: K21.9 Gastro-esophageal reflux disease without esophagitis (principal); E66.01 Morbid (severe) obesity due to excess calories; E03.9 Hypothyroidism, unspecified; E11.22 Type 2 diabetes mellitus with diabetic chronic kidney disease; E78.1 Pure hyperglyceridemia; E78.5 Hyperlipidemia, unspecified; F32.9 Major depressive disorder, single episode, unspecified; F40.240 Claustrophobia; G47.33 Obstructive sleep apnea (adult) (pediatric); G51.0 Bell's palsy; H54.62 Unqualified visual loss, left eye, normal vision right eye; I12.9 Hypertensive chronic kidney disease with stage 1 through stage 4 chronic kidney disease, or unspecified chronic kidney disease; I25.10 Atherosclerotic heart disease of native coronary artery without angina pectoris; M19.90 Unspecified osteoarthritis, unspecified site; J44.9 Chronic obstructive pulmonary disease, unspecified; I25.2 Old myocardial infarction; M17.0 Bilateral primary osteoarthritis of knee; M47.9 Spondylosis, unspecified; M48.02 Spinal stenosis, cervical region; N18.9 Chronic kidney disease, unspecified; Z68.37 Body mass index [BMI] 37.0-37.9, adult; Z82.49 Family history of ischemic heart disease and other diseases of the circulatory system; Z82.5 Family history of asthma and other chronic lower respiratory diseases; Z87.891 Personal history of nicotine dependence; Z98.61 Coronary angioplasty status; Z88.0 Allergy status to penicillin; Z88.2 Allergy status to sulfonamides; Z88.8 Allergy status to other drugs, medicaments and biological substances
CPT/HCPCS: 36415; 36600; 70450; 71045; 71275; 72125; 78582; 80053; 80061; 80307; 81001; 82553; 82607; 82805; 82962; 83735; 83880; 84439; 84443; 84481; 84484; 85025; 85379; 85610; 87040; 93005; 93306; 93970; 94640; 94760; 96374; A9540; A9558; J1650; J1815; J7620; J7626; P9612; Q9967; 97110; 97116; 97530; 97535; 99285-25; G0378